=== PATIENT | male | born 1965 | race African-American/Black ===

== ENCOUNTER 2019-12-20 15:07 | Inpatient (IN) | payer MEDICARE, MEDICAID, SELFPAY ==
[2019-12-20] VITALS (28 sets, daily range): BP systolic 131–195; BP diastolic 48–106; PULSE 74–105; RESP 24–98; TEMP 36.2–37; O2SAT 89–100
--- NOTE | ~2019-12-20 | XR_ITS ---
XR chest 1V portable DATE: 12/20/2019 16:22 INDICATION: Cough, shortness of breath TECHNIQUE: Portable upright AP chest on 12/20/2019 at 1618 hours COMPARISON: 05/21/2019 2 view chest FINDINGS: There are prominent partially consolidating infiltrates in both mid and lower lung zones, r ight greater than left. There is pulmonary vascular congestion. There is prominence of the minor fiss ure. Differential diagnosis for the pulmonary rates includes pulmonary edema as well as pneumonia, le ss likely aspiration. Cardiomegaly. IMPRESSION: Prominent bilateral patchy consolidating infiltrates, right greater than left, increased since 05/21/2019, with thickening of the minor fissure. Findings suggest pulmonary edema. Pneumonia is not excluded. Reviewed, dictated and finalized at location A. IMPRESSION: Prominent bilateral patchy consolidating infiltrates, right greater than left, increased since 05/21/2019, with thickening of the minor fissure. Fin dings suggest pulmonary edema. Pneumonia is not excluded.
--- NOTE | 2019-12-20 15:10 | ECG_ITS ---
Measurements Intervals [place] Rate: 76 P: 5 CA: 226 QRS: -51 QRSD: 125 T: 85 QT: 408 QTc: 460 Interpretive Statements SINUS RHYTHM WITH FIRST DEGREE AV BLOCK LEFT AXIS DEVIATION INTRAVENTRICULAR CONDUCTION DELAY VOLTAGE CRITERIA FOR LVH PEAKED T WAVES- CONSIDER HYPERKALEMIA OR ISCHEMIA BORDERLINE T WAVE ABNORMALITY- LATERAL LEADS ABNORMAL ECG Electronically Signed On 12-20-2019 18:59:55 CDT by Wilfrid Mclaughlin D.O.
--- NOTE | 2019-12-20 15:46 | ED.GENADULT ---
HPI - General Adult General Chief complaint: Shortness of Breath/Dyspnea <MARY Lewis Last Filed: 12/20/19 18:39> Stated complaint: missed dialysis - sob <MARY Lewis Last Filed: 12/20/19 18:39> Time Seen by Provider: 12/20/19 15:14 <MARY Lewis Last Filed: 12/20/19 18:39> Source: patient and old records reviewed <MARY Lewis Last Filed: 12/20/19 18:39> Mode of arrival: ambulatory <MARY Lewis Last Filed: 12/20/19 18:39> Limitations: no limitations <MARY Lewis Last Filed: 12/20/19 18:39> History of Present Illness HPI narrative: Patient is a 54-year-old male who presents to emergency department for evaluation of feeling fatigued with slight dyspnea noting that he has missed dialysis twice this week due to oversleeping with history of similar occurrence notes that he has some mild pain to the left shoulder denies any URI symptoms or other complaints. On arrival per private vehicle patient in the room resting comfortably <MARY Lewis Last Filed: 12/20/19 18:39> Related Data Home medications: Home Medications Medication Instructions Recorded Confirmed albuterol sulfate INHALATION 12/20/19 albuterol sulfate [ProAir HFA] INHALATION 12/20/19 amitriptyline 12/20/19 [id number] ala tablet PO 12/20/19 [Biktarvy] diltiazem HCl PO 12/20/19 doravirine [Pifeltro] mg PO 12/20/19 famotidine 12/20/19 gabapentin 12/20/19 lamivudine 12/20/19 metoprolol tartrate 12/20/19 mirtazapine mg 12/20/19 prednisolone acetate 12/20/19 valacyclovir 12/20/19 valsartan 12/20/19 <MARY Lewis Last Filed: 12/20/19 18:39> Allergies/adverse reactions: Allergies Allergy/AdvReac Type Severity Reaction Status Date / Time Fish Containing Products Allergy Unknown Verified 05/21/19 11:01 <Christopher Rodriguez PA-C - Last Filed: 12/20/19 18:39> Review of Systems Review of Systems: All systems reviewed & are unremarkable except as noted in HPI and below <Christopher Rodriguez PA-C - Last Filed: 12/20/19 18:39> REPLACED BY [facility] Past Medical History Medical History: Medical History (Updated 12/20/19 @ 18:39 by Christopher Rodriguez PA-C) Chronic kidney disease Encounter for renal dialysis Hypertension <Christopher Rodriguez PA-C - Last Filed: 12/20/19 18:39> Social History Social History: Social History (Updated 12/20/19 @ 15:48 by Christopher Rodriguez PA-C) Smoking status: Never smoker <Christopher Rodriguez PA-C - Last Filed: 12/20/19 18:39> Exam Narrative: Exam Narrative: GENERAL: Well-appearing, well-nourished, and in no acute distress. HEAD: Normocephalic, atraumatic. EYES: PERRLA and EOMI. ENT: Nares clear, no rhinorrhea or epistaxis. Mucous membranes moist. Oropharynx without tonsillar hypertrophy exudate or other lesions. NECK: Supple. No adenopathy or masses. CHEST: Clear to auscultation. No respiratory distress. No wheezes rales or rhonchi HEART: Regular rate and rhythm. No murmur heard. Normal peripheral pulses. ABDOMEN: Soft, nontender, distended EXTREMITIES: Normal range of motion. No edema. SKIN: Warm, dry, no rash. NEURO: No focal deficits. Alert and oriented x3. Cranial nerves II through XII grossly intact PSYCH: Normal mood and affect. <Christopher Rodriguez PA-C - Last Filed: 12/20/19 18:39> Course Course Emergency Course: Patient in the room at this time aware of case findings treatment plan and diagnosis will be admitted to the hospital will have emergent dialysis patient was given medications for hyperkalemia patient in the room at this time stable but serious condition will be placed in the IMU <Christopher Rodriguez PA-C - Last Filed: 12/20/19 18:39> BOOK STORE ASSOCIATE/PA Physician Supervision For this patient encounter, I reviewed the BOOK STORE ASSOCIATE or PA documentation, treatment plan, and medical decision making; and I had [id number] time with aide
[2019-12-20 15:47] LABS: Basophils Absolute Auto 0.1 K/mm3 (0.0-0.1); Basophils Percent Auto 0.6 % (0.2-1.2); Eosinophils Absolute Auto 0.1 K/mm3 (0-0.3); Eosinophils Percent Auto 1.1 % (0-4.4); Hemoglobin 10.9 g/dL (14.0-18.0); Immature Granulocyte Absolute 0.05 K/mm3 (0.00-0.031); Immature Granulocyte Percent A 0.6 % (0-0.5); Lymphocytes Absolute Auto 0.96 K/mm3 (0.9-3.2); Lymphocytes Percent Auto 11.3 % (18.3-44.2); Mean Corpuscular HGB Conc 31.1 g/dl (32-36); Mean Corpuscular Hemoglobin 34.1 pg (26-34); Mean Corpuscular Volume 109.4 fl (80-100); Mean Platelet Volume 10.8 fl (7.4-10.4); Monocytes Absolute Auto 0.5 K/mm3 (0.1-0.6); Monocytes Percent Auto 6.1 % (2.6-8.5); Neutrophils Absolute Auto 6.8 K/mm3 (1.3-6.7); Neutrophils Percent Auto 80.3 % (45.5-73.1); Nucleated Red Blood Cells Perc 0.2 % (0.0-0.2); Platelet Count Result 114 k/mm3 (150-375); White Blood Count 8.5 K/mm3 (4.5-10.0)
[2019-12-20 15:54] LABS: Alveolar/Arterial O2 Gradient 63.2 mmHg; Base Excess ABG -9.9 mEq/l (+/-2.0); Device NASAL CANNULA; Fractional Inspired Oxygen 24 %; HCO3 ABG 14.8 mEq/l (22.0-26.0); Oxygen Content ABG 15.3 %vol (16.0-22.0); Oxyhemoglobin 89.5 % THb (90.0-100.0); PO2 ABG 73.4 mmHg (80.0-100.0); PO2 FiO2 Ratio Arterial Blood 3.06 %; Site Drawn RIGHT BRACHIAL; Total Hemoglobin 12.1 g/dL (12.0-18.0); pH ABG 7.325 (7.350-7.450)
[2019-12-20 15:58] LABS: INR 1.1
[2019-12-20 15:59] LABS: Partial Thromboplastin Time 34.2 SECONDS (22.3-36.8)
[2019-12-20] MEDS: ALBUTEROL SULFATE NEB 2.5 MG/0.5 ML INH 5 MG INHALATION (16:25)
[2019-12-20] MEDS: IPRATROPIUM BR 0.02% INH SOLN 0.5 MG/2.5 ML VIAL INHALATION (16:26)
[2019-12-20] MEDS: methylPREDNISolone SOD SUCC 125 MG VIAL 80 MG IV PUSH (16:43)
[2019-12-20 17:10] LABS: Alanine Aminotransferase 15 U/L (4-50); Albumin Level 4.3 g/dL (3.5-5.1); Alkaline Phosphatase 61 U/L (38-126); Aspartate Amino Transferase 34 U/L (17-59); Bilirubin,Total 0.7 mg/dL (0.2-1.3); Blood Urea Nitrogen 61 mg/dL (9-20); Carbon Dioxide 18 mmol/L (22-30); Chloride 104 mmol/L (98-107); Glucose 77 mg/dL (75-110); Potassium 8.4 mmol/L (3.4-5.0); Sodium 136 mmol/L (137-145)
[2019-12-20 17:15] LABS: Estimated CRCL calculation 5 ml/min; Estimated Glomerular Filt Rate 3
[2019-12-20 17:19] LABS: NT Pro B Type Natriuretic Pept 4800 PG/ML (5-100); Troponin I < 0.012 ng/mL (0.000-0.034)
[2019-12-20] MEDS: INSULIN HUMAN REGULAR (*BKC) 100 UNITS/ML 10 UNITS IV PUSH (17:34)
[2019-12-20] MEDS: SODIUM POLYSTYRENE SULFONONATE 15 GM/60 ML BTL 30 GM PO (17:35)
[2019-12-20] MEDS: SODIUM BICARBONATE 8.4% 50 MEQ/50 ML VIAL IV PUSH (17:35)
[2019-12-20] MEDS: DEXTROSE 50% 25 GM/50 ML SYRINGE IV PUSH (17:35)
[2019-12-20] MEDS: ALBUTEROL SULFATE NEB 2.5 MG/0.5 ML INH 10 MG INHALATION (17:48)
[2019-12-20 17:50] LABS: Lactate Dehydrogenase 536 U/L (313-618)
[2019-12-20] MEDS: CALCIUM GLUC 1,000 MG/NS 50 ML 1,000 MG/50 ML BAG 100 MG IVPB (17:51)
--- NOTE | 2019-12-20 19:19 | PC.NURSE ---
RN Attempted to draw blood for repeat BMP on , unsuccessful 3 times. Will have someone else redraw.
--- NOTE | 2019-12-20 21:52 | ADMIMU ---
This patient, Mark Rivera, was admitted to IMU status, and placed in Intensive Care Unit-5 at 1945 on 12/20/2019. Patient/family oriented to hospital policies and general routines including ID bracelet, bed and alarms, visiting hours, pain management, procedures, bathroom and other care routines, personal items, smoking policy, room service/diet, and visiting hours. Valuables list has been completed. Information on how to activate the Rapid Response Team has been discussed. Patient/Family are encouraged to report perceived risks to care and to ask questions if they do not understand what they are told or what they should do.
[2019-12-20 21:55] LABS: Hepatitis B Surface Antigen Negative (Negative)
[2019-12-20] MEDS: EPOETIN ALFA 10,000 UNITS/ML VIAL 10000 UNITS IV PUSH (22:23)
--- NOTE | 2019-12-20 22:33 | PC.NURSE ---
2030 dialysis nurse in room with patient.
--- NOTE | 2019-12-20 23:21 | PM.IMHP ---
H&P: HPI History of Present Illness Chief complaint: missed dialysis - sob Narrative: Date and time of patient contact: 12/20/2019 at 11:30 p.m. Mark Rivera is a 54 year old male with a past medical history of HIV, chronic hypoxic respiratory failure, type 2 diabetes mellitus, heart failure and end-stage renal disease who presented to the ER with increased shortness of breath after having missed 2 dialysis appointments this week. Patient reported that he missed his dialysis appointments due to over sleeping. He had called his dialysis center but he was not able to get to the dialysis in her in the time interval that he wanted him there to get dialysis that same day. He simply thought he would get dialysis on Wednesday. But on Wednesday he also over slept again and had generalized weakness. On /the day of presentation the patient reported that he was so weak he had difficulty standing up to ambulate to the bathroom. He was also mildly short of breath and dizzy. He denies any fevers, chills, cough or congestion. He has been staying at home alone and has not had any travel. Feels palpitations quite frequently but he has not had any palpitations recently. I interviewed the patient while he was undergoing emergent hemodialysis. He requested that hemodialysis be stopped at the time of my interview because he was having muscle cramps. The dialysis nurse tells me that the patient had about 3.3 L of fluid off. The patient reports that his shortness of breath has improved. The patient's labs demonstrated marked hyperkalemia with a potassium of 8.4 and his EKG in the ER demonstrated tall peaked T-waves. The patient has had multiple admissions in the past for having missed dialysis and presenting with hyperkalemia. Potassium following dialysis was 4.3. He reports a severe generalized headache and is requesting his home Percocet. He reports that he needs to go home in the morning so that he can take care of his dog. He states that he intends to go to hemodialysis on Wednesday. Review of Systems Review of Systems: Narrative: 12 systems were reviewed with pertinent positives and negatives per HPI. Except as documented in the HPI, all other systems were reviewed and are negative. [facility], [facility] Past Medical History Medical History (Updated 12/21/19 @ 02:52 by Hermelinda Royal DO) Cardiac arrest due to other underlying condition [facility] a [facility] [place] in the past Chronic idiopathic thrombocytopenia Chronic pain Depression with anxiety End-stage renal disease on hemodialysis Dialysis Wednesday in [place]. Patient has been on hemodialysis since 2016. HIV (human immunodeficiency virus infection) Hypertension Hypertensive renal disease with renal failure Insomnia Peripheral neuropathy Restless leg syndrome Small bowel obstruction due to adhesions Treated conservatively in the past Surgical History Surgical History (Updated 12/21/19 @ 02:34 by Hermelinda Royal DO) History of colonoscopy Complicated by colonic rupture requiring surgical repair History of detached retina repair 2007 History of left hip replacement 2010 Surgically constructed arteriovenous fistula Left upper extremity Family History Family History (Updated 12/21/19 @ 02:43 by Hermelinda Royal DO) Father Dementia Mother Dementia CHF (congestive heart failure) Social History Social History (Updated 12/21/19 @ 02:48 by Hermelinda Royal DO) Social History: Code status: Full code Smoking packs per day: 0.25 Smoking cigarettes per day: 5.0 Years smoked: 2 Smoking pack-years: 0.50 Smoking status: Former smoker Additional smoking assessment comments: He only smoked for about 2-4 years when he was in his mid 30s. Alcohol intake: current Alcohol use details: He drinks 1 or 2 alcoholic beverages every couple weeks. Substance use: former Substance use type: marijuana Living arr
[2019-12-20 23:28] LABS: Hepatitis B Surface Anti Res Positive
[2019-12-21] VITALS (11 sets, daily range): BP systolic 122–174; BP diastolic 75–106; PULSE 73–104; RESP 13–26; TEMP 36.2–36.7; O2SAT 97–100; BMI 19.4
[2019-12-21] MEDS: FAMOTIDINE 20 MG/2 ML VIAL IV PUSH (01:11)
[2019-12-21 01:48] LABS: Blood Urea Nitrogen 35 mg/dL (9-20); Calcium 9.2 mg/dL (8.4-10.2); Carbon Dioxide 24 mmol/L (22-30); Chloride 94 mmol/L (98-107); Estimated CRCL calculation 8 ml/min; Estimated Glomerular Filt Rate 6; Glucose 154 mg/dL (75-110); Potassium 4.3 mmol/L (3.4-5.0); Sodium 138 mmol/L (137-145)
[2019-12-21] MEDS: MIRTAZAPINE 15 MG TABLET PO (03:25)
[2019-12-21] MEDS: METOPROLOL TARTRATE 25 MG TABLET PO ×2 (03:25→09:15)
[2019-12-21] MEDS: VITAMIN B CMPLX/VIT C/FOLIC AC 1 CAPSULE 1 CAP PO (09:15)
[2019-12-21] MEDS: GABAPENTIN 100 MG CAPSULE PO ×2 (09:15→12:15)
[2019-12-21] MEDS: VALACYCLOVIR HCL 500 MG TABLET PO (09:16)
[2019-12-21] MEDS: FAMOTIDINE 20 MG TABLET PO (09:16)
[2019-12-21] MEDS: SEVELAMER CARBONATE 800 MG TABLET 1600 MG PO ×2 (09:16→12:15)
--- NOTE | 2019-12-21 11:31 | PM.IMPN ---
Progress Note: A&P Assessment and Plan (1) Volume overload: Qualifiers: Hypervolemia type: other Qualified Code(s): E87.79 - Other fluid overload Code(s): E87.70 - Fluid overload, unspecified Status: Acute Assessment and Plan: Result of missing hemodialysis sessions. Patient much better today after hemodialysis yesterday. COVID-19 testing was started from the emergency room but felt to be less likely as patient with no consistent symptoms. Discussed with nephrology today. Will discharge home as care coordination has verified with his outpatient hemodialysis unit that he will be able to go there tomorrow with COVID-19 testing pending. (2) Acute hyperkalemia: Code(s): E87.5 - Hyperkalemia Status: Acute Assessment and Plan: Result of missing hemodialysis. Corrected with emergent dialysis yesterday. Potassium normal at 4.3 today. Telemetry reviewed on 12/21/2019 with sinus rhythm. (3) End-stage renal disease on hemodialysis: Code(s): N18.6 - End stage renal disease; Z99.2 - Dependence on renal dialysis Status: Acute Assessment and Plan: Nephrology consulted from the emergency room and appreciate input. Emergent hemodialysis yesterday due to volume overload. Plan to continue patient on his Wednesday, Wednesday, Wednesday outpatient hemodialysis schedule. (4) Hypertension: Qualifiers: Hypertension type: essential hypertension Qualified Code(s): I10 - Essential (primary) hypertension Code(s): I10 - Essential (primary) hypertension Status: Acute Assessment and Plan: Blood pressure reviewed on 12/21/2019 and stable although some elevated readings. Will continue his home diltiazem, metoprolol, valsartan and terazosin. Will need to follow as outpatient. (5) DVT prophylaxis: Code(s): Z29.9 - Encounter for prophylactic measures, unspecified Status: Acute Assessment and Plan: Heparin subcutaneously. Time Spent With Patient Time with patient: 15 - 25 minutes Subjective Date/time seen: 12/21/19 11:31 Interval history: Date of Service: 12/21/2019. Admitted with volume overload as result of missing hemodialysis sessions. Had hemodialysis yesterday and feels much better today. No shortness of breath today. No chest pain or pressure. No abdominal pain. No headache or dizziness. Wants to go home. Review of Systems Review of Systems: Narrative: Feels better. Wants to go home. Constitutional: Constitutional: Denies chills and Denies fever(s) ENT: Denies nasal congestion and Denies nasal discharge Cardiovascular: Cardiovascular: Denies chest pain Respiratory: Respiratory: Denies dyspnea Gastrointestinal: Gastrointestinal: Denies abdominal pain, Denies nausea and Denies vomiting Genitourinary: Genitourinary: Reports no additional male genitourinary complaints Musculoskeletal: Musculoskeletal: Reports no additional musculoskeletal complaints Integumentary/Breasts: Skin/Breast: Denies rash Neurologic: Denies headache(s) Psychiatric: Psychiatric: Denies confusion Exam Narrative: Exam Narrative: Awake and alert. Const: General: no acute distress HENMT: Mouth: Yes moist mucous membranes Neck: Neck: supple Lymphatic: lymphadenopathy not noted Resp: Auscultation: clear to auscultation bilaterally, no rales and no wheezes Cardio: Rate: regular rate Rhythm: regular rhythm GI: Inspection: non-distended GI Palp: Yes Soft to palpation and No Tenderness to palpation present (GI) Auscultation: normal bowel sounds Skin: General skin exam: normal color Neuro: Cognition (Neuro): normal cognition Speech: normal speech Extrem: General: no edema Psych: Mental Status: mental status grossly normal Affect: normal affect Objective Data Vital Signs Vital Signs: Vital Signs - 24 hr 12/20/19 15:14 12/20/19 15:23 12/20/19 16:03 Temperature 97.9 F Pulse Rate 74 85 Respiratory Rate 28 H Bl
--- NOTE | 2019-12-21 11:41 | PM.DS ---
DS: Diagnosis Admitting Diagnosis Admitting Diagnosis: Hyperkalemia Discharge Diagnosis (1) Volume overload: Qualifiers: Hypervolemia type: other Qualified Code(s): E87.79 - Other fluid overload Code(s): E87.70 - Fluid overload, unspecified Status: Acute (2) Acute hyperkalemia: Code(s): E87.5 - Hyperkalemia Status: Acute (3) End-stage renal disease on hemodialysis: Code(s): N18.6 - End stage renal disease; Z99.2 - Dependence on renal dialysis Status: Acute (4) Hypertension: Qualifiers: Hypertension type: essential hypertension Qualified Code(s): I10 - Essential (primary) hypertension Code(s): I10 - Essential (primary) hypertension Status: Acute DS: Summary Hospital Course Reason for hospitalization: Shortness of breath. Hospital Course: Date of Service of Discharge: December 21, 2019. History of Present Illness: Patient is a 54-year-old gentleman with known HIV, chronic hypoxic respiratory failure, type 2 diabetes mellitus, heart failure and end-stage renal disease on hemodialysis present emergency room with increased shortness of breath. Patient did miss 2 hemodialysis appointments this past week due to over sleeping. He reports being mildly short of breath and dizzy . No recent fever, chills, cough or congestion. He has been staying home alone without any travel. No recent palpitations. In the emergency room, findings were consistent with fluid overload. Given current pandemic, COVID testing was initiated. He was admitted to IMU for further evaluation and treatment. Course in Hospital: Patient was admitted to the IMU as noted. Nephrology was consulted with patient receiving emergent dialysis on presentation. With hemodialysis patient had complete resolution of symptoms with no further shortness of breath. He had no dizziness or headaches. He experienced no chest pain. No fever while in hospital. Patient was very eager to go home on the morning after present patient. Given the COVID testing still pending, care coordination did contact his usual hemodialysis unit and may made that unit aware of this status. His usual unit did advise he would be able to be accommodated appropriately at his normally scheduled time on Wednesday, December 22, 2019. With the patient stable and all arrangements made for outpatient hemodialysis, he was able to discharge home on December 21, 2019. Status at Discharge Cognitive/behavioral status at discharge: Stable. Functional status at discharge: independent ambulation Overall status at discharge: patient is back to baseline Time Spent with Patient Time attestation: Total time spent providing and/or coordinating discharge services: 35 minutes. Time spent: Greater than 30 minutes Exam Narrative: Exam Narrative: Vital Signs Temp Pulse Resp BP Pulse Ox 97.9 F 74 28 H 135/94 H 92 12/20/19 15:14 12/20/19 15:14 12/20/19 15:14 12/20/19 15:14 12/20/19 15:14 Temp Pulse Resp BP Pulse Ox 98.0 F 83 13 173/102 H 99 12/21/19 12:00 12/21/19 12:00 12/21/19 12:00 12/21/19 12:00 12/21/19 12:00 Awake and alert. Const: General: no acute distress HENMT: Mouth: Yes moist mucous membranes Neck: Neck: supple Lymphatic: lymphadenopathy not noted Resp: Auscultation: clear to auscultation bilaterally, no rales and no wheezes Cardio: Rate: regular rate Rhythm: regular rhythm GI: Inspection: non-distended GI Palp: Yes Soft to palpation and No Tenderness to palpation present (GI) Auscultation: normal bowel sounds Skin: General skin exam: normal color Neuro: General: No confusion Cognition (Neuro): normal cognition Speech: normal speech Extrem:
--- NOTE | 2019-12-21 12:12 | PM.CNNEP ---
Assessment and Plan Assessment and plan (1) End-stage renal disease on hemodialysis: Code(s): N18.6 - End stage renal disease; Z99.2 - Dependence on renal dialysis Status: Acute Assessment and Plan: The patient is on dialysis 3 times a week. He missed the last 2 treatments. Consequently is volume is up and so he short of breath. He also had hyperkalemia. He was emergently dialyzed last night. He is better today. He can probably be discharged. (2) Volume overload: Qualifiers: Hypervolemia type: other Qualified Code(s): E87.79 - Other fluid overload Code(s): E87.70 - Fluid overload, unspecified Status: Acute Assessment and Plan: He had shortness of breath and hypoxia last night. Fluid removal helped this. (3) Acute hyperkalemia: Code(s): E87.5 - Hyperkalemia Status: Acute Assessment and Plan: Potassium was dangerously high last night. It is normal now. (4) Hypertension: Qualifiers: Hypertension type: essential hypertension Qualified Code(s): I10 - Essential (primary) hypertension Code(s): I10 - Essential (primary) hypertension Status: Acute Assessment and Plan: He has hypertension anyway. However when he has this much fluid on his blood pressure is often Dat. It came down to the 120s with fluid removal. Additional Plan Long discussion about the patient being compliant with his dialysis treatments. Having severe volume overload is very hard on his heart. People developed cardiomyopathy when this type of thing happens over and over again even independent of any coronary disease. In addition is potassium was dangerously high. If he was not short of breath than he might have at home had he not come in for dialysis. And now with the sawyer virus we are trying to keep dialysis patients out of the hospital as much as possible to minimize risk of infection. We discussed at length and the patient understands the concerns. History of Present Illness Reason for Consult Consult date: 12/21/19 Chief Complaint Chief complaint: missed dialysis - sob History of Present Illness Narrative: Mark is a very pleasant 54-year-old gentleman who has end-stage renal disease on dialysis 3 times a week. He typically goes Wednesdays and Fridays. Unfortunately on Wednesday and Wednesday he overslept and was unable to make it to his dialysis unit in time. He lives in [place] but he dialyzes in [place] The patient became short of breath yesterday and so came to the emergency room. He was seen and found to be volume overloaded. Unfortunately his potassium was 8.4 so he was admitted and emergently dialyzed. Today he feels better months ago home. Patient denies any chest pain, fever, chills, cough, shortness of Breath, aches or pains. No flu-like symptoms. No back pain. He has anemia and is getting Epogen supplements. He has renal osteodystrophy and is on binders. He is hypertension and is on blood pressure pills. Review of Systems Constitutional: Constitutional: Reports no additional constitutional complaints Eyes: Eyes: Reports no additional eye complaints ENT: Reports system reviewed and no additional complaints, except as documented Cardiovascular: Cardiovascular: Reports no additional cardiovascular complaints Gastrointestinal: Gastrointestinal: Reports no additional gastrointestinal complaints Genitourinary: Genitourinary: Reports no additional male genitourinary complaints Musculoskeletal: Musculoskeletal: Reports no additional musculoskeletal complaints Integumentary/Breasts: Skin/Breast: Reports system reviewed and no additional complaints, except as docu Neurologic: Reports system reviewed and no additional complaints, except as documented Psychiatric: Psychiatric: Reports no additional psychiatric complaints [facility] Past Medical History Medical History (Reviewed 12/21/19 @ 12:17 by William Guerrero
[2019-12-21 12:32] LABS: Glucose Point of Care 197 (65-105)
== END 2019-12-21 13:45 | disposition home or self-care (01) | DRG 640 ==
LOC: ANHED 18:39 → ANHICU 18:56
PROVIDERS: Emergency Medicine Emergency Medical Services; Internal Medicine; Internal Medicine Nephrology; Admitting Provider Hospitalist; Emergency Provider Emergency Medicine; Visit Provider Internal Medicine
DX: E87.5 Hyperkalemia (principal); N18.6 End stage renal disease; J96.11 Chronic respiratory failure with hypoxia; D69.3 Immune thrombocytopenic purpura; I13.2 Hypertensive heart and chronic kidney disease with heart failure and with stage 5 chronic kidney disease, or end stage renal disease; E87.70 Fluid overload, unspecified; Z91.15 Patient's noncompliance with renal dialysis; E11.9 Type 2 diabetes mellitus without complications; Z20.828 Contact with and (suspected) exposure to other viral communicable diseases; G89.29 Other chronic pain; F41.8 Other specified anxiety disorders; Z99.2 Dependence on renal dialysis; E11.22 Type 2 diabetes mellitus with diabetic chronic kidney disease; E11.42 Type 2 diabetes mellitus with diabetic polyneuropathy; G25.81 Restless legs syndrome; G47.00 Insomnia, unspecified; Z96.642 Presence of left artificial hip joint; Z87.891 Personal history of nicotine dependence; I50.9 Heart failure, unspecified; Z21 Asymptomatic human immunodeficiency virus [HIV] infection status
CPT/HCPCS: 36415; 36600; 71045; 80048; 80053; 82805; 83615; 83880; 84484; 85025; 85610; 85730; 86706; 87340; 93005; 94640; 96365; 96375; 99285; A9270; G0257; J0610; J1815; J2930; J7030; Q4081

== ENCOUNTER 2020-02-04 22:05 | Inpatient (IN) | payer MEDICARE, MEDICAID, SELFPAY ==
--- NOTE | ~2020-02-04 | XR_ITS ---
EXAMINATION: XR chest 1V portable EXAM DATE: 02/04/2020 22:49 INDICATION: Shortness of breath. No pain or fever. History hypertension. TECHNIQUE: Portable AP frontal chest x-ray was obtained. Comparison is made to prior examination from 12/20/2019, 05/21/2019. FINDINGS: There is progression in extensive bilateral mid and lower lung zone ill-defined airspace di sease with some air bronchograms. Airspace disease has progressed compared to prior exams. Appearance is most consistent with acute process such as edema or pneumonia, but if this is the same airspace d isease is seen in 2019, could also be chronic process. Please clinically correlate. No pneumothorax or pleural effusion. Cardiomediastinal silhouette is normal. There are no osseous abn ormalities identified. IMPRESSION: 1. Extensive bilateral mid and lower lung zone airspace disease with mild progression. Reviewed, dictated and finalized at location A. IMPRESSION: 1. Extensive bilateral mid and lower lung zone airspace disease with mild prog ression.
[2020-02-04 22:11] VITALS: BP 222/140; PULSE 122; RESP 36; TEMP 36.2; O2SAT 45
[2020-02-04 22:12] VITALS: PULSE 90; RESP 35; O2SAT 100
--- NOTE | 2020-02-04 22:12 | ECG_ITS ---
Measurements Intervals [place] Rate: 122 P: 34 W[place]: 153 QRS: 88 QRSD: 109 T: 38 QT: 305 QTc: 435 Interpretive Statements SINUS TACHYCARDIA VOLTAGE CRITERIA FOR LVH PEAKED T WAVES- CONSIDER HYPERKALEMIA OR ISCHEMIA BASELINE ARTIFACT- I, II, III, AVR, AVL, AVF, V1 ABNORMAL ECG Electronically Signed On 02-05-2020 7:08:20 CDT by Wilfrid Mclaughlin D.O.
--- NOTE | 2020-02-04 22:15 | ED.SOB ---
HPI - SOB/Dyspnea General Chief Complaint: Shortness of Breath/Dyspnea Stated Complaint: missed dialysis, SOB Time Seen by Provider: 02/04/20 22:08 History of Present Illness HPI Narrative: History limited by medical condition 54 yo w/ h/o ESRD on dialysis presents in respiratory distress. He gets dialysis on MWF. Missed Wednesday. SOB worsening throughout the day. No pain. Related Data Home Medications Medication Instructions Recorded Confirmed Biktarvy 1 tablet PO HS 12/20/19 02/05/20 Pifeltro 100 mg PO DAILY 12/20/19 02/05/20 albuterol sulfate 2 puff INHALATION QID PRN 12/20/19 02/05/20 amitriptyline 50 mg PO HS 12/20/19 02/05/20 diltiazem HCl 300 mg PO DAILY 12/20/19 02/05/20 famotidine 20 mg PO DAILY 12/20/19 02/05/20 gabapentin 100 mg PO TID 12/20/19 02/05/20 metoprolol tartrate 25 mg PO BID 12/20/19 02/05/20 mirtazapine 15 mg PO HS 12/20/19 02/05/20 valacyclovir 500 mg PO DAILY 12/20/19 02/05/20 valsartan 80 mg PO HS 12/20/19 02/05/20 Shiro Caps 1 cap PO DAILY 12/21/19 02/05/20 hydrocodone-acetaminophen 1 tablet PO Q6-8H PRN 12/21/19 02/05/20 sevelamer carbonate 1,600 mg PO TID 12/21/19 02/05/20 terazosin 2 mg PO HS 12/21/19 02/05/20 Allergies Allergy/AdvReac Type Severity Reaction Status Date / Time Fish Containing Products Allergy Unknown Verified 05/21/19 11:01 Review of Systems Review of Systems: ROS unobtainable: Yes unobtainable due to medical condition Constitutional: Constitutional: Denies fever(s) Cardiovascular: Cardiovascular: Denies chest pain Respiratory: Respiratory: Reports dyspnea PMFSH Past Medical History Medical History Cardiac arrest due to other underlying condition Resuscitation at a hospital in [place] in the past Chronic idiopathic thrombocytopenia Chronic pain Depression with anxiety End-stage renal disease on hemodialysis Dialysis Wednesday in [place]. Patient has been on hemodialysis since 2016. HIV (human immunodeficiency virus infection) Hypertension Hypertensive renal disease with renal failure Insomnia Peripheral neuropathy Restless leg syndrome Small bowel obstruction due to adhesions Treated conservatively in the past Surgical History Surgical History History of colonoscopy Complicated by colonic rupture requiring surgical repair History of detached retina repair 2007 History of left hip replacement 2009 Surgically constructed arteriovenous fistula Left upper extremity Family History Family History Father Dementia Mother Dementia CHF (congestive heart failure) Social History Social History Social History: Code status: Full code Smoking packs per day: 0.25 Smoking cigarettes per day: 5.0 Years smoked: 2 Smoking pack-years: 0.50 Smoking status: Former smoker Tobacco type: cigarettes Additional smoking assessment comments: He only smoked for about 2-4 years when he was in his mid 30s. Alcohol intake: never Substance use: never Substance use type: does not use Additional living arrangements comments: He lives in [place]. He has a dog. He has never been and does not have any children. His parents are . He would like his friend Brandon Sheffield to be his surrogate decision maker. Additional occupation/education comments: He is on disability. Gender identity (if verbalized by the patient): Male Spiritual care concerns: No Agree to blood products: Yes Exam Const: General: ill appearing acutely and chronically Other: Moderate distress. Resp: Effort & Inspection: labored and tachypneic Auscultation: rales Cardio: Rate: tachycardic Rhythm: regular rhythm Other: JVD GI: GI Palp: Yes Soft to palpation and No Tenderness to
--- NOTE | 2020-02-04 22:20 | PC.NURSE ---
Rep in room at this time to put pt on BIPAP.
[2020-02-04 22:21] LABS: Basophils Absolute Auto 0.1 K/mm3 (0.0-0.1); Basophils Percent Auto 0.4 % (0.2-1.2); Eosinophils Absolute Auto 0.2 K/mm3 (0-0.3); Eosinophils Percent Auto 1.7 % (0-4.4); Hematocrit 36.3 % (42.0-52.0); Hemoglobin 11.8 g/dL (14.0-18.0); Immature Granulocyte Absolute 0.04 K/mm3 (0.00-0.031); Immature Granulocyte Percent A 0.3 % (0-0.5); Lymphocytes Absolute Auto 1.96 K/mm3 (0.9-3.2); Lymphocytes Percent Auto 15.4 % (18.3-44.2); Mean Corpuscular HGB Conc 32.5 g/dl (32-36); Mean Corpuscular Hemoglobin 36.1 pg (26-34); Mean Platelet Volume 10.7 fl (7.4-10.4); Monocytes Absolute Auto 0.9 K/mm3 (0.1-0.6); Monocytes Percent Auto 7.2 % (2.6-8.5); Neutrophils Absolute Auto 9.5 K/mm3 (1.3-6.7); Platelet Count Result 124 k/mm3 (150-375); Red Blood Count 3.27 M/mm3 (4.6-6.20); Red Cell Distribution Width 15.1 % (11.5-14.5); White Blood Count 12.7 K/mm3 (4.5-10.0)
[2020-02-04] MEDS: LABETALOL HCL INJ 100 MG/20 ML VIAL 20 MG IV PUSH (22:23)
[2020-02-04] MEDS: NITROGLYCERIN OINTMENT 1 INCH DOSE TRANSDERM (22:23)
[2020-02-04 22:25] VITALS: BP 185/115; PULSE 98; RESP 36; O2SAT 98
[2020-02-04 22:31] LABS: Prothrombin Time 12.8 Seconds (11.1-14.7)
[2020-02-04 22:32] LABS: Partial Thromboplastin Time 30.4 SECONDS (22.3-36.8)
[2020-02-04 22:34] LABS: Blood Urea Nitrogen 60 mg/dL (9-20); Calcium 8.2 mg/dL (8.4-10.2); Carbon Dioxide 16 mmol/L (22-30); Chloride 105 mmol/L (98-107); Glucose 146 mg/dL (75-110); Potassium 5.5 mmol/L (3.4-5.0); Sodium 137 mmol/L (137-145)
[2020-02-04 22:38] LABS: Alveolar/Arterial O2 Gradient 563.8 mmHg; Base Excess ABG -10.5 mEq/l (+/-2.0); Device NON-INVASIVE VENT; Fractional Inspired Oxygen 100 %; HCO3 ABG 15.3 mEq/l (22.0-26.0); Modified Allen's Test Pass; Non-Invasive Expiratory Pressure 10 CMH2O; Non-Invasive Inspiratory Pressure 18 CMH2O; Non-Invasive Vent Rate 20 /MIN; Oxygen Content ABG 16.4 %vol (16.0-22.0); Oxygen Saturation ABG 97.7 % (95.0-100.0); Oxyhemoglobin 95.5 % THb (90.0-100.0); PCO2 ABG 33.8 mmHg (35.0-45.0); PO2 ABG 115.4 mmHg (80.0-100.0); PO2 FiO2 Ratio Arterial Blood 1.15 %; Site Drawn RIGHT RADIAL; Total Hemoglobin 12.1 g/dL (12.0-18.0); pH ABG 7.274 (7.350-7.450)
[2020-02-04 22:40] VITALS: BP 160/110; PULSE 85; RESP 30; O2SAT 100
[2020-02-04 22:40] LABS: Estimated Glomerular Filt Rate 4
[2020-02-04 22:45] LABS: NT Pro B Type Natriuretic Pept 8920 PG/ML (5-100); Troponin I 0.019 ng/mL (0.000-0.034)
[2020-02-04 23:42] VITALS: BP 165/103; PULSE 89; RESP 28; O2SAT 100
[2020-02-04] MEDS: hydrALAZINE HCL 20 MG/ML VIAL IV PUSH (23:57)
[2020-02-04] MEDS: SODIUM BICARBONATE 8.4% 50 MEQ/50 ML VIAL 100 MEQ IV PUSH (23:57)
[2020-02-05] VITALS (29 sets, daily range): BP systolic 130–176; BP diastolic 73–113; PULSE 82–104; RESP 18–97; TEMP 36.1–37.1; O2SAT 24–100; BMI 19.8
--- NOTE | 2020-02-05 00:45 | PC.NURSE ---
This patient, Mark Rivera, was admitted to IMU Room 214-01. Patient/family oriented to hospital policies and general routines including ID bracelet, bed and alarms, visiting hours, pain management, procedures, bathroom and other care routines, personal items, smoking policy, room service/diet, and visiting hours. Valuables list has been completed. Information on how to activate the Rapid Response Team has been discussed. Patient/Family are encouraged to report perceived risks to care and to ask questions if they do not understand what they are told or what they should do.
[2020-02-05 01:35] LABS: Alveolar/Arterial O2 Gradient 291.8 mmHg; Base Excess ABG -6.8 mEq/l (+/-2.0); Carboxyhemoglobin 0.3 % THb (0-2.0); Fractional Inspired Oxygen 60 %; HCO3 ABG 16.8 mEq/l (22.0-26.0); Methemoglobin ABG 0.3 %THb (0-1.5); Oxygen Content ABG 15.3 %vol (16.0-22.0); Oxygen Saturation ABG 97.9 % (95.0-100.0); Oxyhemoglobin 96.4 % THb (90.0-100.0); PO2 ABG 105.2 mmHg (80.0-100.0); PO2 FiO2 Ratio Arterial Blood 1.75 %; Total Hemoglobin 11.2 g/dL (12.0-18.0); pH ABG 7.397 (7.350-7.450)
[2020-02-05 01:36] LABS: Device NON-INVASIVE VENT; Modified Allen's Test Pass; Non-Invasive Expiratory Pressure 8 CMH2O; Non-Invasive Inspiratory Pressure 16 CMH2O; Non-Invasive Vent Rate 10 /MIN; Site Drawn RIGHT RADIAL
--- NOTE | 2020-02-05 01:53 | PM.IMHP ---
H&P: HPI History of Present Illness Chief complaint: Respiratory failure Narrative: This is a 54 year old male with known ESRD on dialysis M/W/F, HIV, and HTN who presented to the hospital with a complaint of severe shortness of breath. He admits that he missed dialysis this past weekend. He has had increased left upper extremity swelling over the past month and has been treated with antibiotics for left upper extremity cellulitis. He reports that the cellulitis has improved significantly. The patient was evaluted in the ER tonight and found to be fluid overloaded and in acute respiratory failure. He was initiated on Bipap and on my encounter with him he is doing well on the Bipap. He denies any recent fevers, chills, cough, sore throat, chest pain, abdominal pain, dysuria, hematuria, diarrhea, or rectal bleeding. No other complaints. Review of Systems Review of Systems: All systems reviewed & are unremarkable except as noted in HPI and below PMFSH Past Medical History Medical History Cardiac arrest due to other underlying condition Resuscitation at a hospital in [place] in the past Chronic idiopathic thrombocytopenia Chronic pain Depression with anxiety End-stage renal disease on hemodialysis Dialysis Wednesday in [place]. Patient has been on hemodialysis since 2016. HIV (human immunodeficiency virus infection) Hypertension Hypertensive renal disease with renal failure Insomnia Peripheral neuropathy Restless leg syndrome Small bowel obstruction due to adhesions Treated conservatively in the past Surgical History Surgical History History of colonoscopy Complicated by colonic rupture requiring surgical repair History of detached retina repair 2007 History of left hip replacement 2009 Surgically constructed arteriovenous fistula Left upper extremity Family History Family History Father Dementia Mother Dementia CHF (congestive heart failure) Social History Social History Social History: Code status: Full code Smoking packs per day: 0.25 Smoking cigarettes per day: 5.0 Years smoked: 2 Smoking pack-years: 0.50 Smoking status: Former smoker Tobacco type: cigarettes Additional smoking assessment comments: He only smoked for about 2-4 years when he was in his mid 30s. Alcohol intake: never Substance use: never Substance use type: does not use Additional living arrangements comments: He lives in [place]. He has a dog. He has never been and does not have any children. His parents are . He would like his friend Brandon Sheffield to be his surrogate decision maker. Additional occupation/education comments: He is on disability. Gender identity (if verbalized by the patient): Male Spiritual care concerns: No Agree to blood products: Yes Meds Home Medications and Allergies Home Medications Medication Instructions Recorded Confirmed Type Biktarvy 1 tablet PO HS 12/20/19 02/05/20 History Pifeltro 100 mg PO DAILY 12/20/19 02/05/20 History albuterol sulfate 2 puff INHALATION QID PRN 12/20/19 02/05/20 History amitriptyline 50 mg PO HS 12/20/19 02/05/20 History diltiazem HCl 300 mg PO DAILY 12/20/19 02/05/20 History famotidine 20 mg PO DAILY 12/20/19 02/05/20 History gabapentin 100 mg PO TID 12/20/19 02/05/20 History metoprolol tartrate 25 mg PO BID 12/20/19 02/05/20 History mirtazapine 15 mg PO HS 12/20/19 02/05/20 History valacyclovir 500 mg PO DAILY 12/20/19 02/05/20 History valsartan 80 mg PO HS 12/20/19 02/05/20 History [place] Caps 1 cap PO DAILY 12/21/19 02/05/20 History hydrocodone-acetaminophen 1 tablet PO Q6-8H PRN 12/21/19 02/05/20 History sevelamer carbonate 1,600 mg PO TID 12/21/19 05
[2020-02-05] MEDS: hydrALAZINE HCL 20 MG/ML VIAL 10 MG IV PUSH (02:12)
[2020-02-05 04:53] LABS: Basophils Percent Auto 0.2 % (0.2-1.2); Eosinophils Absolute Auto 0.1 K/mm3 (0-0.3); Eosinophils Percent Auto 0.6 % (0-4.4); Hematocrit 30.2 % (42.0-52.0); Hemoglobin 10.1 g/dL (14.0-18.0); Immature Granulocyte Absolute 0.04 K/mm3 (0.00-0.031); Immature Granulocyte Percent A 0.4 % (0-0.5); Lymphocytes Absolute Auto 0.65 K/mm3 (0.9-3.2); Lymphocytes Percent Auto 6.6 % (18.3-44.2); Mean Corpuscular HGB Conc 33.4 g/dl (32-36); Mean Corpuscular Hemoglobin 36.2 pg (26-34); Mean Corpuscular Volume 108.2 fl (80-100); Mean Platelet Volume 9.6 fl (7.4-10.4); Monocytes Absolute Auto 0.7 K/mm3 (0.1-0.6); Monocytes Percent Auto 6.8 % (2.6-8.5); Neutrophils Absolute Auto 8.4 K/mm3 (1.3-6.7); Neutrophils Percent Auto 85.4 % (45.5-73.1); Platelet Count Result 104 k/mm3 (150-375); Red Blood Count 2.79 M/mm3 (4.6-6.20); Red Cell Distribution Width 14.6 % (11.5-14.5); White Blood Count 9.9 K/mm3 (4.5-10.0)
[2020-02-05 05:43] LABS: Blood Urea Nitrogen 64 mg/dL (9-20); Calcium 7.5 mg/dL (8.4-10.2); Carbon Dioxide 19 mmol/L (22-30); Chloride 107 mmol/L (98-107); Glucose 93 mg/dL (75-110); Potassium 6.5 mmol/L (3.4-5.0); Sodium 138 mmol/L (137-145)
[2020-02-05 05:49] LABS: Hepatitis B Surface Antigen Negative (Negative)
[2020-02-05 05:55] LABS: HAV RESULT Negative (Negative); Hepatitis B Core IgM Result Negative (Negative)
[2020-02-05 05:58] LABS: Estimated CRCL calculation 5 ml/min; Estimated Glomerular Filt Rate 4
[2020-02-05 06:37] LABS: Hepatitis B Surface Anti Res Positive; Hepatitis C Virus Antibody Negative (Negative)
[2020-02-05] MEDS: METOPROLOL TARTRATE 50 MG TAB 25 MG PO (08:22)
--- NOTE | 2020-02-05 08:25 | PC.NURSE ---
Patient to dialysis via bed.
--- NOTE | 2020-02-05 12:00 | PM.PNNEP ---
Progress Note: A&P Assessment and Plan (1) End stage renal disease: Code(s): N18.6 - End stage renal disease Status: Chronic (2) Volume overload: Qualifiers: Hypervolemia type: unspecified Qualified Code(s): E87.70 - Fluid overload, unspecified Code(s): E87.70 - Fluid overload, unspecified Status: Acute (3) Hyperkalemia: Code(s): E87.5 - Hyperkalemia Status: Acute (4) Acute respiratory failure: Qualifiers: Respiratory failure complication: unspecified whether with hypoxia or hypercapnia Qualified Code(s): J96.00 - Acute respiratory failure, unspecified whether with hypoxia or hypercapnia Code(s): J96.00 - Acute respiratory failure, unspecified whether with hypoxia or hypercapnia Status: Acute (5) Hypertension: Qualifiers: Hypertension type: essential hypertension Qualified Code(s): I10 - Essential (primary) hypertension Code(s): I10 - Essential (primary) hypertension Status: Chronic (6) HIV (human immunodeficiency virus infection): Code(s): B20 - Human immunodeficiency virus [HIV] disease Status: Chronic (7) Metabolic acidosis: Code(s): E87.2 - Acidosis Status: Chronic Assessment and Plan: . Additional Plan HD today and continue M/W/F schedule while hospitalized consider DUF tomorrow depending on volume status FULL CONSULT TO FOLLOW Subjective Date/time seen: 02/05/20 12:00 Tolerating HD treatment at the time of my visit (seen on HD at ~ 11:50AM); breathing has improved significantly and feels reasonably close to baseline; no apparent distress voiced at this time. Exam Narrative: Exam Narrative: General: WD/WN AA male in NAD Heart: normal S1 and S2; no rub Lungs: decreased breath sounds at bases Abdomen: soft, nontender, nondistended, positive bowel sounds Extremities: no cyanosis or clubbing; no edema Skin: warm and dry Objective Data Vital Signs Vital Signs: Vital Signs Temp Pulse Pulse Resp BP Pulse Ox 02/05/20 11:45 96 153/79 H 02/05/20 11:30 95 141/80 H 02/05/20 11:15 96 155/82 H 02/05/20 11:00 97 168/89 H 02/05/20 10:45 96 154/73 H 02/05/20 10:30 96 136/73 02/05/20 10:16 95 02/05/20 10:15 98 130/88 02/05/20 10:00 97 164/92 H 02/05/20 09:45 89 170/97 H 02/05/20 09:30 87 174/101 H 02/05/20 09:15 87 174/103 H 02/05/20 09:00 82 173/98 H 02/05/20 08:42 95 171/94 H 02/05/20 08:30 36.9 C 100 18 02/05/20 08:22 101 H 02/05/20 08:00 37.1 C 98 97 H 166/90 H 24 L 02/05/20 06:00 100 02/05/20 04:00 98 02/05/20 03:47 36.4 C 101 H 30 H 160/95 H 100 02/05/20 02:00 104 H 02/05/20 01:28 40 H 100 02/05/20 00:44 36.1 C L 100 36 H 176/106 H 98 02/05/20 00:33 95 38 H 97 02/05/20 00:21 94 30 H 170/113 H 100 02/04/20 23:42 89 28 H 165/103 H 100 02/04/20 22:40 85 30 H 160/110 H 100 02/04/20 22:25 98 36 H 185/115 H 98 02/04/20 22:12 90 35 H 100 02/04/20 22:11 36.2 C L 122 H 36 H 222/140 H 45 L Intake/Output Intake/Output: Intake & Output 02/02/20 02/03/20 02/04/20 02/05/20 23:59 23:59 23:59 23:59 Output Total 450 Balance -450 Meds/Results Medications: Active Medications Generic Name Dose Route Start Last Admin Trade Name Freq PRN Reason Stop Dose Admin Hydrocodone Bitart/Acetaminophen 1 tab 02/05/20 06:13 02/05/20 08:20 [place] 10-325 Mg PO 1 tab Q6-8H PRN Administration PAIN RATED 7-10 Albuterol 2 puff 02/05/20 06:13 Proventil Hfa INHALATION QID PRN Shortness Of Breath Or Wheezing Amitriptyline HCl 50 mg 02/05/20 21:00 Elavil PO HS JOSE ANGEL Diltiazem HCl 300 mg 02/05/20 09:00 Cardizem Cd PO DAILY JOSE ANGEL Famotidine 20 mg 02/05/20 09:00 Pepcid PO DAILY JOSE ANGEL Gabapentin 100 mg 02/04
--- NOTE | 2020-02-05 12:47 | PC.NURSE ---
Patient returned to room following dialysis. Report received from MELISSA Castro.
[2020-02-05] MEDS: GABAPENTIN 100 MG CAPSULE PO ×2 (12:56→14:15)
[2020-02-05] MEDS: VALACYCLOVIR HCL 500 MG TABLET PO (12:56)
[2020-02-05] MEDS: SEVELAMER CARBONATE 800 MG TABLET 1600 MG PO (12:56)
[2020-02-05] MEDS: FAMOTIDINE 20 MG TABLET PO (12:56)
[2020-02-05] MEDS: VITAMIN B CMPLX/VIT C/FOLIC AC 1 CAPSULE 1 CAP PO (12:56)
--- NOTE | 2020-02-05 15:37 | PC.NURSE ---
1500 Patient wanting to leave AMA to take care of dog at home. Made him aware that he could if he left. Patient still wants to leave. Dr. Schaefer and Dr. Lopez both made aware of patient leaving AMA.
--- NOTE | 2020-02-05 15:42 | PM.DS ---
DS: Admitting Diagnosis Admitting Diagnosis Admitting Diagnosis: End stage renal disease DS: Discharge Diagnosis Discharge Diagnosis (1) Acute respiratory failure: Qualifiers: Respiratory failure complication: unspecified whether with hypoxia or hypercapnia Qualified Code(s): J96.00 - Acute respiratory failure, unspecified whether with hypoxia or hypercapnia Code(s): J96.00 - Acute respiratory failure, unspecified whether with hypoxia or hypercapnia Status: Acute Assessment and Plan: Admit to IMU, telemetry, Continued Bipap support until dialysis and did well with dialysis removing 2.5 L fluid. Encourage patient to stay another day for probable repeat dialysis session for more fluid removal but left against medical advice aware of the potential consequences (2) Volume overload: Qualifiers: Hypervolemia type: unspecified Qualified Code(s): E87.70 - Fluid overload, unspecified Code(s): E87.70 - Fluid overload, unspecified Status: Acute Assessment and Plan: Patient had 2.5 L removed at dialysis the day he left against medical advice (3) End-stage renal disease on hemodialysis: Code(s): N18.6 - End stage renal disease; Z99.2 - Dependence on renal dialysis Status: Acute Assessment and Plan: Nephrology saw and were managing his fluids.. (4) Acute hyperkalemia: Code(s): E87.5 - Hyperkalemia Status: Acute Assessment and Plan: Potassium predialysis was 6.5 and left post dialysis before could be recheck (5) Hypertension: Qualifiers: Hypertension type: essential hypertension Qualified Code(s): I10 - Essential (primary) hypertension Code(s): I10 - Essential (primary) hypertension Status: Chronic Assessment and Plan: Resume his home regime no new medications given (6) Metabolic acidosis: Code(s): E87.2 - Acidosis Status: Chronic Assessment and Plan: secondary to chronic renal failure. Monitor acid-base status. (7) HIV (human immunodeficiency virus infection): Code(s): B20 - Human immunodeficiency virus [HIV] disease Status: Chronic Assessment and Plan: Continue home meds. (8) Chronic idiopathic thrombocytopenia: Code(s): D69.3 - Immune thrombocytopenic purpura Status: Chronic Assessment and Plan: Unchanged DS: Summary Hospital Course Hospital Course: 54-year-old hypertensive male on chronic hemodialysis admitted with respiratory failure secondary to volume overload after having missed his last dialysis session. Potassium was elevated and had dialysis early a.m. with removal 2.5 L of fluid. He left against medical advise before potassium could reassess the and the plan was to read dialyze 02/05. Patient is aware of potential consequences. Time Spent with Patient Time attestation: Total time spent providing and/or coordinating discharge services: 35 minutes Exam Narrative: Exam Narrative: Condition on discharge patient was examined pre dialysis and left against medical advice post dialysis before further evaluation At discharge blood pressure 157/98 respiration 18 per minute saturating 96% and still on 2 L Prior to dialysis see a crackles in his lungs both bases with no edema DS: Data Data Completed and Pending Labs on day of discharge: Labs from last 24 hours 02/05/20 02/05/20 02/05/20 04:22 04:22 04:22 WBC 9.9 RBC 2.79 L Hgb 10.1 L Hct 30.2 L MCV 108.2 H MCH 36.2 H MCHC 33.4 RDW 14.6 H Plt Count 104 L MPV 9.6 Immature Gran % (Auto) 0.4 Neut % (Auto) 85.4 H Lymph % (Auto) 6.6 L [place] % (Auto) 6.8 Eos % (Auto) 0.6 Baso % (Auto) 0.2 Lymph # (Auto) 0.65 L [place] # (Auto) 0.7 H Eos # (Auto) 0.1 Baso # (Auto) 0.0 Abs Immat Gran (auto) 0.04 H Absolute Neuts (auto) 8.4 H Absolute Nucleated RBC 0.0 Nucleated RBC % 0.0 PT INR APTT Puncture
--- NOTE | 2020-02-09 18:22 | CONS_ITS ---
DATE OF CONSULTATION: 02/05/2020 REASON FOR CONSULTATION: End-stage renal disease. HISTORY OF PRESENT ILLNESS: The patient is a very pleasant 54-year-old male with an extensive past medical history including end-stage renal disease, on hemodialysis 3 times a week; HIV; hypertension; chronic idiopathic thrombocytopenia; depression; anxiety; insomnia; peripheral neuropathy; and restless legs syndrome, who presented to [facility] Emergency Room with complaints of severe shortness of breath. The patient states that he missed his regularly scheduled dialysis treatment last Wednesday and probably had more fluid intake that he should of over the weekend resulting in the aforementioned symptom. He has also had some issues and problems with left upper extremity swelling in the past month, thought to be related to his cellulitis and has been treated with oral antibiotic therapy. This issue apparently has been resolving and what really brought him to the emergency room was the aforementioned shortness of breath. Workup and evaluation in the emergency room demonstrated the patient to be quite hypertensive with clear evidence of fluid overload by his chest x-ray and overt respiratory failure. He was initiated on BiPAP therapy and his respiratory status improved significantly with this intervention. He gave no other reported symptoms with regard to fevers, chills, coughs, sore throat, chest pain, abdominal pain, dysuria, hematuria, diarrhea, or palpitations. Routine blood tests demonstrated labs consistent with his known history of end-stage renal disease, an elevated proBNP, and anemia of his chronic kidney disease. He was subsequently admitted to the hospital for further evaluation and therapy. Renal consultation was requested due to his end-stage renal disease. The patient normally dialyzes on a Wednesday, Wednesday, Wednesday schedule, but as already mentioned, missed his dialysis treatment that was scheduled on Wednesday. This coupled with his increased fluid intake over the weekend resulted in his aforementioned shortness of breath, which he is well aware of. At the time of my dictation, he is undergoing dialysis and clinically appears to be doing significantly better as he is currently off BiPAP and has been weaned down to supplemental oxygen by nasal cannula. No other acute issues or complaints voiced at this time and he is hoping to be discharged later today if possible. ALLERGIES: FISH CONTAINING PRODUCTS. PAST MEDICAL HISTORY: As above. SOCIAL HISTORY: He is a former smoker of about a quarter a pack a day for the last 2 years, but has quit smoking at this time. Denies any history of alcohol or IV drug abuse. FAMILY HISTORY: Significant for dementia in both his mother and father as well as congestive heart failure, but nothing with regard to kidney disease that he is aware of. REVIEW OF SYSTEMS: Significant for as mentioned in the HPI. PHYSICAL EXAMINATION: VITAL SIGNS: Temperature 96.8, pulse 96, respiratory rate 18, blood pressure 153/79, and saturating 100% on room air. GENERAL APPEARANCE: Well developed, well-nourished male, currently receiving dialysis at the time of dictation. HEENT: Normocephalic and atraumatic. Normal conjunctivae and sclerae. Nares patent. NECK: No overt JVD, lymphadenopathy, or thyromegaly. MOUTH: Normal lips, teeth, and gums. CARDIOVASCULAR: Regular rate and rhythm. Normal S1, S2. No rub detected. LUNGS: Clear to auscultation anteriorly with some decreased breath sounds at the bases associated with some bibasilar crackles. ABDOMEN: Soft, nontender. Positive bowel sounds present. EXTREMITIES: No cyanosis, clubbing, or significant edema. NEUROLOGIC: Alert and oriented x3. Cranial nerves 2 through
== END 2020-02-05 15:23 | disposition left against medical advice (07) | DRG 189 ==
LOC: ANHED 22:43 → ANHIMU 02-05 00:59
PROVIDERS: Internal Medicine Nephrology; Admitting Provider Family Medicine; Emergency Provider Emergency Medicine; Visit Provider Internal Medicine
DX: J96.00 Acute respiratory failure, unspecified whether with hypoxia or hypercapnia (principal); N18.6 End stage renal disease; I12.0 Hypertensive chronic kidney disease with stage 5 chronic kidney disease or end stage renal disease; B20 Human immunodeficiency virus [HIV] disease; D69.3 Immune thrombocytopenic purpura; E87.2 Acidosis; E87.5 Hyperkalemia; E87.79 Other fluid overload; Z91.15 Patient's noncompliance with renal dialysis; Z99.2 Dependence on renal dialysis; F41.8 Other specified anxiety disorders; G25.81 Restless legs syndrome; G62.9 Polyneuropathy, unspecified; G89.29 Other chronic pain
CPT/HCPCS: 36415; 36600; 71045; 80048; 80074; 82375; 82805; 83050; 83880; 84484; 85025; 85610; 85730; 86706; 93005; 96374; 96375; 99291; A9270; J0360

== ENCOUNTER 2020-03-05 07:09 | Inpatient (IN) | payer MEDICARE, MEDICAID, SELFPAY ==
[2020-03-05] VITALS (36 sets, daily range): BP systolic 70–171; BP diastolic 40–100; PULSE 40–99; RESP 16–30; TEMP 35–36.6; O2SAT 79–100; BMI 20.2
--- NOTE | 2020-03-05 | ECHO_ITS ---
Patient Info Name: Mrak Rivera Age: 54 years : 1965 Gender: Male Ht: 73 in Wt: 153 lbs BSA: 1.88 m2 HR: 77 bpm BP: 163 / 80 mmHg Heart Rhythm: Sinus Rhythm Technical Quality: Excellent Exam Date: 03/05/2020 4:19 PM Exam Location: [facility] Card Pulmonary Patient Status: Inpatient Admit Date: 03/05/2020 Staff Ordering Physician: Anne Tucker NP [employer] Supervisor: Zoran Johnson RDCS Attending Provider: Benedict Hernandez MD Referring Physician: Garrett ARCE; Exam Type: CA echo doppler color flow Study Info Indications J81.0 - Acute pulmonary edema Complete two-dimensional, color flow and Doppler transthoracic echocardiogram is performed. Strain analysis performed. History/Risk Factors Pulmonary edema; ESRD, HTN, HFpEF. Summary 1. Normal left ventricular size with moderate concentric left ventricular hypertrophy. Left ventricular function was at the lower limit of normal with no focal wall motion abnormalities. Visual ejection fraction was 50-55%, measured 51%. Global longitudinal strain was mildly decreased at-14%, suggestive of early systolic dysfunction. Grade 1 diastolic dysfunction is present. 2. Right ventricular chamber dimension is mildly enlarged. 3. Left atrial chamber dimension is moderately enlarged. 4. There is moderate mitral valve regurgitation. PISA was 0.5 cm. 5. No pulmonary hypertension, estimated pulmonary arterial systolic pressure is 35 mmHg. 6. Normal sinus rhythm. 7. Compared to the echocardiogram obtained in January 2019, there has been some improvement of the left ventricular function and the pulmonary hypertension. Left Ventricle Left ventricular chamber dimension is normal. Left ventricular systolic function is normal, estimated at 50-55%. There is moderately increased left ventricular wall thickness. Left ventricular septal wall motion is normal. The left ventricular diastolic function is grade I diastolic dysfunction. Global longitudinal strain is mildly elevated at 14 %. Right Ventricle Right ventricular chamber dimension is mildly enlarged. Right ventricular systolic function is normal. Left Atria Left atrial chamber dimension is moderately enlarged. Right Atria Right atrial chamber dimension is normal. Aortic Valve The aortic valve is trileaflet. There is no aortic valve sclerosis. There is no aortic valve stenosis. There is no aortic valve regurgitation. Pulmonic Valve The pulmonic valve is normal. There is no pulmonic valve stenosis. There is trace pulmonic regurgitation. Mitral Valve The mitral valve has normal leaflets. There is no mitral valve stenosis. There is moderate mitral valve regurgitation. PISA was 0.5 cm. Tricuspid Valve The tricuspid valve leaflets are normal. There is no significant tricuspid valve stenosis. There is trace tricuspid valve regurgitation. No pulmonary hypertension, estimated pulmonary arterial systolic pressure is 35 mmHg. Pericardium/Pleural The pericardium appears normal. There is no pericardial effusion. Inferior Vena Cava Normal inferior vena cava with >50% collapse upon inspiration consistent with Empty right atrial pressure, 5 mmHg. Aorta The aortic root size at the sinus of Valsalva is normal. The prox ascending aorta size is normal. Left Ventricular Outflow Tract Name Value Normal
--- NOTE | ~2020-03-05 | XR_ITS ---
EXAMINATION: XR chest 1V portable DATE: 03/06/2020 04:56 INDICATION: Respiratory failure TECHNIQUE: frontal view of the chest was obtained. COMPARISON: Chest radiograph dated 03/05/2020 FINDINGS: Significant interval improvement in perihilar predominant opacities consistent with improving pulmona ry edema. No pleural effusion or pneumothorax. Cardiomediastinal silhouette is normal. IMPRESSION: 1. Significant improvement in now mild perihilar opacities and favor resolving ulnar edema over pneum onia. Reviewed, dictated and finalized at location A. IMPRESSION: 1. Significant improvement in now mild perihilar opacities and favor resolving ulnar edema over pneumonia.
--- NOTE | ~2020-03-05 | XR_ITS ---
EXAMINATION: XR chest 1V portable DATE: 03/05/2020 07:48 INDICATION: Atrial fibrillation hypertension and renal failure presenting with shortness of breath. TECHNIQUE: frontal view of the chest was obtained. COMPARISON: Chest radiograph dated 02/04/2020 FINDINGS: Again seen are perihilar predominant airspace and interstitial opacities. No pleural effusion or pneu mothorax. Cardiomegaly. Visualized bones and soft tissues are unremarkable. IMPRESSION: 1. Bilateral extensive but perihilar centered lung disease which could represent moderate pulmonary e bri or pneumonia. 2. Cardiomegaly. Reviewed, dictated and finalized at location A. IMPRESSION: 1. Bilateral extensive but perihilar centered lung disease which could represen t moderate pulmonary edema or pneumonia. 2. Cardiomegaly.
--- NOTE | ~2020-03-05 | US_ITS ---
EXAMINATION: US venous doppler E EXAM DATE: 03/05/2020 15:50 INDICATION: Left arm edema. Left arm fistula. TECHNIQUE: Multiple grayscale, color flow, Doppler sonographic images of the left upper extremity vei ns obtained by technologist. Compression was performed where able. Comparison is made to prior exami nation from 02/07/2019. FINDINGS: Left upper extremity: Jugular vein: ------------> Normal. Subclavian vein: --------> Normal. Axillary vein:------------> Normal. Brachial vein:-----------> Normal. Basilic vein: ------------> Normal. Cephalic vein: ----------> Normal. Radial vein: ------------> Normal. Ulnar vein: > Normal. There is a dialysis graft, with patency confirmed. The velocity in the proximal limb 219 cm/s, and th e distal aspect of the graft 110 cm/s. IMPRESSION: 1. No deep venous thrombosis of the left upper extremity. 2. Patent dialysis graft. Reviewed, dictated and finalized at location B.
--- NOTE | 2020-03-05 07:18 | ECG_ITS ---
Measurements Intervals [place] Rate: 40 P: -76 NE: 148 QRS: -67 QRSD: 134 T: 98 QT: 508 QTc: 415 Interpretive Statements ECTOPIC ATRIAL BRADYCARDIA LEFT BUNDLE BRANCH BLOCK LEFT VENTRICULAR HYPERTROPHY AND ST-T CHANGE PEAKED T WAVES- CONSIDER HYPERKALEMIA OR ISCHEMIA BASELINE WANDER- I, II, AVR, AVL ABNORMAL ECG Electronically Signed On 03-05-2020 9:43:42 CDT by Wilfrid Mclaughlin D.O.
--- NOTE | 2020-03-05 07:24 | PC.NURSE ---
erp dr. cedeño at bedside for assessment. Dr. Cedeño placing iv access in left neck. 2nd attempt successful.
--- NOTE | 2020-03-05 07:29 | ED.SOB ---
HPI - SOB/Dyspnea General Chief Complaint: Shortness of Breath/Dyspnea Stated Complaint: SOB Time Seen by Provider: 03/05/20 07:15 History of Present Illness HPI Narrative: Patient presents via EMS for shortness of breath. He is a dialysis patient and usually has his dialysis on Wednesday. He missed his dialysis yesterday. So his last dialysis was 4 days ago. He denies any pain. But is reluctant to answer other questions. He is breathing fast with groaning. Heart rate is low 40 on the EKG. IV access was obtained without blood draw. Left external jugular obtained with blood. Call out to hand meat salter for emergent dialysis. Needs a potassium to know whether it needs to be corrected. Needs his oxygen saturations to determine whether we need to intubate. MD elicited complaint: shortness of breath Pertinent past history: other (Fluid overload from missed dialysis.) Related Data Home Medications Medication Instructions Recorded Confirmed Biktarvy 1 tablet PO HS 12/20/19 02/05/20 Pifeltro 100 mg PO DAILY 12/20/19 02/05/20 albuterol sulfate 2 puff INHALATION QID PRN 12/20/19 02/05/20 amitriptyline 50 mg PO HS 12/20/19 02/05/20 diltiazem HCl 300 mg PO DAILY 12/20/19 02/05/20 famotidine 20 mg PO DAILY 12/20/19 02/05/20 gabapentin 100 mg PO TID 12/20/19 02/05/20 metoprolol tartrate 25 mg PO BID 12/20/19 02/05/20 mirtazapine 15 mg PO HS 12/20/19 02/05/20 valacyclovir 500 mg PO DAILY 12/20/19 02/05/20 valsartan 80 mg PO HS 12/20/19 02/05/20 [place] Caps 1 cap PO DAILY 12/21/19 02/05/20 hydrocodone-acetaminophen 1 tablet PO Q6-8H PRN 12/21/19 02/05/20 sevelamer carbonate 1,600 mg PO TID 12/21/19 02/05/20 terazosin 2 mg PO HS 12/21/19 02/05/20 Allergies Allergy/AdvReac Type Severity Reaction Status Date / Time Fish Containing Products Allergy Severe Anaphylaxis Verified 03/05/20 09:07 Review of Systems Review of Systems: Narrative: Unable to obtain a review of systems due to the acuteness of the illness and shortness of breath. [facility] Past Medical History Medical History Cardiac arrest due to other underlying condition Resuscitation at a hospital in [place] in the past Chronic idiopathic thrombocytopenia Chronic pain Depression with anxiety End-stage renal disease on hemodialysis Dialysis Wednesday in [place]. Patient has been on hemodialysis since 2016. HIV (human immunodeficiency virus infection) Hypertension Hypertensive renal disease with renal failure Insomnia Peripheral neuropathy Restless leg syndrome Small bowel obstruction due to adhesions Treated conservatively in the past Surgical History Surgical History History of colonoscopy Complicated by colonic rupture requiring surgical repair History of detached retina repair 2007 History of left hip replacement 2009 Surgically constructed arteriovenous fistula Left upper extremity Family History Family History Father Dementia Mother Dementia CHF (congestive heart failure) Social History Social History Social History: Code status: Full code Smoking packs per day: 0.25 Smoking cigarettes per day: 5.0 Years smoked: 2 Smoking pack-years: 0.50 Smoking status: Former smoker Tobacco type: cigarettes Additional smoking assessment comments: He only smoked for about 2-4 years when he was in his mid 30s. Alcohol intake: never Substance use: never Substance use type: does not use Additional living arrangements comments: He lives in [place]. He has a dog. He has never been and does not have any children. His parents are . He would like his friend Brandon Sheffield to be his surrogate decision maker. Additional occupation/education comments: He is on disability.
--- NOTE | 2020-03-05 07:32 | PC.NURSE ---
Unable to get o2 sat.
[2020-03-05 07:37] LABS: Basophils Absolute Auto 0.1 K/mm3 (0.0-0.1); Basophils Percent Auto 0.5 % (0.2-1.2); Eosinophils Absolute Auto 0.1 K/mm3 (0-0.3); Hematocrit 33.4 % (42.0-52.0); Hemoglobin 10.9 g/dL (14.0-18.0); Immature Granulocyte Absolute 0.07 K/mm3 (0.00-0.031); Immature Granulocyte Percent A 0.7 % (0-0.5); Lymphocytes Absolute Auto 1.47 K/mm3 (0.9-3.2); Lymphocytes Percent Auto 13.7 % (18.3-44.2); Mean Corpuscular HGB Conc 32.6 g/dl (32-36); Mean Corpuscular Hemoglobin 35.4 pg (26-34); Mean Corpuscular Volume 108.4 fl (80-100); Mean Platelet Volume 9.4 fl (7.4-10.4); Monocytes Absolute Auto 0.6 K/mm3 (0.1-0.6); Monocytes Percent Auto 5.5 % (2.6-8.5); Neutrophils Absolute Auto 8.5 K/mm3 (1.3-6.7); Neutrophils Percent Auto 78.6 % (45.5-73.1); Platelet Count Result 79 k/mm3 (150-375); Red Blood Count 3.08 M/mm3 (4.6-6.20); Red Cell Distribution Width 14.6 % (11.5-14.5); White Blood Count 10.7 K/mm3 (4.5-10.0)
--- NOTE | 2020-03-05 07:39 | PC.NURSE ---
O2 sat 95% non rebreather. Dr. Baird made aware. X-ray at bedside.
[2020-03-05 07:47] LABS: INR 1.1; Prothrombin Time 13.8 Seconds (11.1-14.7)
[2020-03-05 07:48] LABS: Partial Thromboplastin Time 28.7 SECONDS (22.3-36.8)
--- NOTE | 2020-03-05 07:54 | PC.NURSE ---
ERP Dr. Baird Made aware pt is restless and requesting medications. No new orders at this time.
[2020-03-05 07:57] LABS: Alanine Aminotransferase 17 U/L (4-50); Albumin Level 4.1 g/dL (3.5-5.1); Alkaline Phosphatase 62 U/L (38-126); Aspartate Amino Transferase 37 U/L (17-59); Bilirubin,Total 0.6 mg/dL (0.2-1.3); Blood Urea Nitrogen 63 mg/dL (9-20); Carbon Dioxide 12 mmol/L (22-30); Chloride 107 mmol/L (98-107); Glucose 232 mg/dL (75-110); Magnesium 2.5 mg/dL (1.6-2.3); Potassium 8.3 mmol/L (3.4-5.0); Sodium 135 mmol/L (137-145)
[2020-03-05] MEDS: DEXTROSE 25% INJ 2.5 GM/10 ML SYR IV PUSH (08:01)
[2020-03-05] MEDS: CALCIUM GLUCONATE 1,000 MG/10 ML VIAL 1000 MG IV PUSH (08:01)
[2020-03-05 08:03] LABS: NT Pro B Type Natriuretic Pept 5820 PG/ML (5-100); Troponin I < 0.012 ng/mL (0.000-0.034)
--- NOTE | 2020-03-05 08:03 | PC.NURSE ---
[facility] out of insulin, pharmacy contacted.
[2020-03-05] MEDS: INSULIN HUMAN REGULAR (*BKC) 100 UNITS/ML 7 UNITS IV PUSH (08:05)
[2020-03-05 08:12] LABS: Estimated CRCL calculation 5 ml/min; Estimated Glomerular Filt Rate 4
[2020-03-05] MEDS: SODIUM BICARBONATE 8.4% 100 MEQ in DEXTROSE 5% 1,000 ML 1,000 ML 50 MEQ IV CONT (08:33)
--- NOTE | 2020-03-05 08:38 | PC.NURSE ---
RN spoke with dialysis(Kenan) to give report.
--- NOTE | 2020-03-05 08:39 | PC.NURSE ---
ESTEFANI Brooks at bedside for assessment.
[2020-03-05 08:49] LABS: Lactic Acid 3.5 mmol/L (0.7-2.1)
[2020-03-05 09:01] LABS: Glucose Point of Care 168 (65-105)
--- NOTE | 2020-03-05 09:01 | PC.NURSE ---
BS 168
[2020-03-05 09:09] LABS: Hepatitis B Surface Antigen Negative (Negative)
--- NOTE | 2020-03-05 09:09 | PC.NURSE ---
RN report given to RAUL Najera.
[2020-03-05 09:52] LABS: Alveolar/Arterial O2 Gradient 603.3 mmHg; Base Excess ABG 2.1 mEq/l (+/-2.0); Fractional Inspired Oxygen 100 %; Oxygen Content ABG 14.4 %vol (16.0-22.0); Oxygen Saturation ABG 96.3 % (95.0-100.0); Oxyhemoglobin 93.4 % THb (90.0-100.0); PCO2 ABG 33.3 mmHg (35.0-45.0); PO2 ABG 76.4 mmHg (80.0-100.0); PO2 FiO2 Ratio Arterial Blood 0.76 %; Site Drawn RIGHT FEMORAL; Total Hemoglobin 10.9 g/dL (12.0-18.0); pH ABG 7.494 (7.350-7.450)
[2020-03-05 09:53] LABS: Device NON-REBREATHER MASK
[2020-03-05] MEDS: SODIUM BICARBONATE 8.4% 50 MEQ/50 ML VIAL 100 MEQ IV PUSH (10:13)
[2020-03-05] MEDS: ATROPINE SULFATE 1 MG/ML VIAL IV PUSH (10:14)
--- NOTE | 2020-03-05 10:25 | WPDCNINT ---
Assessment and Plan Assessment and plan (1) Acute hyperkalemia: Code(s): E87.5 - Hyperkalemia Status: Acute Assessment and Plan: Secondary to missed dialysis due to noncompliance with dialysis sessions Patient was given IV insulin dextrose and calcium in the ED I gave 2 amps of bicarb on arrival to ICU Hemodialysis is being started at this time Patient has a left AV fistula which will be used If there is an issue with AV fistula I will place a dialysis catheter Repeat BMP post dialysis (2) End stage renal disease: Code(s): N18.6 - End stage renal disease Status: Chronic Assessment and Plan: See above nephrology consult (3) Metabolic acidosis: Code(s): E87.2 - Acidosis Status: Chronic Assessment and Plan: Improved with IV bicarb (4) CHF (congestive heart failure): Qualifiers: Heart failure chronicity: unspecified Heart failure type: unspecified Qualified Code(s): I50.9 - Heart failure, unspecified Code(s): I50.9 - Heart failure, unspecified Status: Acute Assessment and Plan: Hemodialysis for fluid removal (5) HIV (human immunodeficiency virus infection): Code(s): B20 - Human immunodeficiency virus [HIV] disease Status: Chronic Assessment and Plan: Patient is on anti retroviral l therapy which I will continue (6) DVT prophylaxis: Code(s): Z29.9 - Encounter for prophylactic measures, unspecified Status: Acute Assessment and Plan: SCDs (7) Acute respiratory failure: Qualifiers: Respiratory failure complication: hypoxia Qualified Code(s): J96.01 - Acute respiratory failure with hypoxia Code(s): J96.00 - Acute respiratory failure, unspecified whether with hypoxia or hypercapnia Status: Acute Assessment and Plan: Acute hypoxic respiratory failure secondary to volume overload from from end-stage renal disease and missed dialysis Questionable background pneumonia as history is limited although count is normal Patient on non-rebreather mask maintaining adequate oxygenation and ventilation at this point May need BiPAP or intubation if worsens Blood culture Empiric vancomycin and cefepime (8) Hypotension: Code(s): I95.9 - Hypotension, unspecified Status: Acute Assessment and Plan: Patient's blood pressure was low when he arrived to ICU but improved with 2 amps of bicarb Will monitor closely and if persistent we may need vasopressors for blood pressure support. (9) Encephalopathy: Code(s): G93.40 - Encephalopathy, unspecified Status: Acute Assessment and Plan: Acute likely toxic metabolic encephalopathy Patient is on several drugs which also sedative like Neurontin amitriptyline and hydrocodone Hold all sedative drug ABG reviewed Check ammonia Will send for head CT if mental status does not improve after dialysis. Will hold at this time due to need for emergent dialysis (10) Bradycardia: Code(s): R00.1 - Bradycardia, unspecified Status: Acute Assessment and Plan: Likely from a acidosis hyperkalemia and patient also on Cardizem p.o. Hyperkalemia treated chemically and now patient on dialysis Acidosis treated with sodium bicarbonate 1 mg atropine given on arrival to ICU Heart rate and blood pressure now acceptable Repeat EKG now Total Critical Care Time - 50 minutes Due to a high probability of clinically significant, life threatening deterioration, the patient required my highest level of preparedness to intervene emergently and I personally spent this critical care time directly and personally managing the patient. This critical care time included obtaining a history; examining the patient; pulse oximetry; ordering and review of studies; arranging urgent treatment with development of a management plan; evaluation of patient's response to treatment; frequent reassessment; and discussions with other providers. It w
[2020-03-05] MEDS: EPOETIN ALFA 10,000 UNITS/ML VIAL 5000 UNITS IV PUSH (10:36)
--- NOTE | 2020-03-05 10:43 | ECG_ITS ---
Measurements Intervals [place] Rate: 66 P: 40 CA: 130 QRS: 47 QRSD: 102 T: 89 QT: 454 QTc: 476 Interpretive Statements SINUS RHYTHM POSSIBLE LEFT ATRIAL ENLARGEMENT BORDERLINE R WAVE PROGRESSION, ANTERIOR LEADS BORDERLINE T WAVE ABNORMALITY- HIGH LATERAL LEADS BASELINE ARTIFACT- II, III, AVF BORDERLINE ECG Electronically Signed On 03-05-2020 13:18:14 CDT by Wilfrid Mclaughlin D.O.
[2020-03-05 10:47] LABS: Ammonia < 9 umol/L (9-30)
[2020-03-05] MEDS: ALBUMIN HUMAN 25% 25 GM/100 ML 100 ML IVPB (10:56)
--- NOTE | 2020-03-05 11:04 | PC.NURSE ---
This patient, Mark Rivera, was admitted to Intensive Care Unit-8. Patient/family oriented to hospital policies and general routines including ID bracelet, bed and alarms, visiting hours, pain management, procedures, bathroom and other care routines, personal items, smoking policy, room service/diet, and visiting hours. Valuables list has been completed. Information on how to activate the Rapid Response Team has been discussed. Patient/Family are encouraged to report perceived risks to care and to ask questions if they do not understand what they are told or what they should do.
--- NOTE | 2020-03-05 11:14 | PM.PNNEP ---
Progress Note: A&P Assessment and Plan (1) End stage renal disease: Code(s): N18.6 - End stage renal disease Status: Chronic (2) Hyperkalemia: Code(s): E87.5 - Hyperkalemia Status: Acute (3) Hypotension: Code(s): I95.9 - Hypotension, unspecified Status: Acute (4) Bradycardia: Code(s): R00.1 - Bradycardia, unspecified Status: Acute (5) Volume overload: Qualifiers: Hypervolemia type: other Qualified Code(s): E87.79 - Other fluid overload Code(s): E87.70 - Fluid overload, unspecified Status: Acute (6) Acute respiratory failure: Qualifiers: Respiratory failure complication: hypoxia Qualified Code(s): J96.01 - Acute respiratory failure with hypoxia Code(s): J96.00 - Acute respiratory failure, unspecified whether with hypoxia or hypercapnia Status: Acute Assessment and Plan: . Additional Plan HD today possible HD tomorrow depending on volume status and electrolytes FULL CONSULT TO FOLLOW Subjective Date/time seen: 03/05/20 11:14 Tolerating dialysis at the time of my visit (seen on HD at ~ 11:00AM); BP doing significantly better currently; respiratory status seems to be doing better. Exam Narrative: Exam Narrative: General: WD/WN AA male in NAD Heart: normal S1 and S2; no rub Lungs: coarse with scattered crackles Abdomen: soft, nontender, nondistended, positive bowel sounds Extremities: no cyanosis or clubbing; trace - 1+ edema Skin: warm and dry Objective Data Vital Signs Vital Signs: Vital Signs Temp Pulse Resp BP Pulse Ox 03/05/20 09:52 48 L 29 H 88/62 L 90 03/05/20 09:00 54 L 23 H 86/51 L 87 L 03/05/20 08:35 63 19 88/56 L 90 03/05/20 08:15 69 26 H 79 L 03/05/20 07:58 53 L 30 H 70/40 L 03/05/20 07:43 40 L 22 H 78/53 L 80 L 03/05/20 07:41 40 L 03/05/20 07:39 95 03/05/20 07:10 36.4 C 41 L 28 H 86/67 L Meds/Results Medications: Active Medications Generic Name Dose Route Start Last Admin Trade Name Freq PRN Reason Stop Dose Admin Albuterol 2.5 mg 03/05/20 10:43 Albuterol Sulf Neb 2.5mg/0.5ml INHALATION Q4HRT PRN Shortness Of Breath Or Wheezing Albumin Human 50 mls @ 999 mls/hr 03/05/20 08:15 Albutein IVPB 03/06/20 08:16 Q10M PRN HYPOTENSION Norepinephrine Bitartrate 8 mg in 250 mls @ 9.375 mls/hr 03/05/20 09:40 Levophed 8 Mg/D5w 250 Ml IV CONT .[id number] JOSE ANGEL 5 MCG/MIN Cefepime HCl 1 gm in 50 mls @ 100 mls/hr 03/05/20 09:00 Maxipime 1 Gm/D5w 50 Ml IVPB Q12HR JOSE ANGEL Dopamine HCl/Dextrose 400 mg in 250 mls @ 5.295 mls/hr 03/05/20 10:45 Dopamine 400 Mg/D5w 250 Ml IV CONT .Q24H JOSE ANGEL Protocol 2 MCG/KG/MIN Vancomycin HCl 1,000 mg in 250 mls @ 250 mls/hr 03/05/20 13:00 Vancomycin 1,000 Mg/D5w 250 Ml IVPB 03/05/20 13:59 ONCE ONE Vancomycin HCl 1,000 mg in 250 mls @ 250 mls/hr 03/05/20 10:32 Vancomycin 1,000 Mg/D5w 250 Ml IVPB PRN PRN per protocol Non-Formulary Medication 1 capsule(s) 03/06/20 09:00 Biktarvy BY MOUTH 04/05/20 09:01 DAILY [facility] Radiology Results: ITS Impressions Chest X-Ray 03/05/20 07:53 IMPRESSION: 1. Bilateral extensive but perihilar centered lung disease which could represent moderate pulmonary edema or pneumonia. 2. Cardiomegaly. Labs Labs: Laboratory Tests 03/05/20 07:30 03/05/20 07:30 Quality Patient tolerating hemodialysis at this time ([id number]).
[2020-03-05] MEDS: ALBUMIN HUMAN 25% 12.5 GM/50ML 50 ML IVPB (11:30)
[2020-03-05] MEDS: hydrALAZINE HCL 20 MG/ML VIAL 10 MG IV PUSH (15:12)
--- NOTE | 2020-03-05 15:13 | PM.IMHP ---
H&P: HPI History of Present Illness Chief complaint: hyperkalemia/missed dialysis/hypotension/chf/lynne Narrative: Mark Rivera is a 54 year old male renal disease secondary to uncontrolled hypertension. The patient typically goes to dialysis on Wednesday and Wednesday and he has been known to be noncompliant at times. The patient stated that he did not go to dialysis yesterday because he overslept and that would not be able to get him into later on that day. The patient was then scheduled to go to dialysis today but he became very short of breath. The patient has not had dialysis for 4 days. He does have chronic back pain. The restaurant crew person was consulted for emergent dialysis as patient's potassium was 8.3. Gluconate, regular insulin, dextrose, bicarb, and dopamine was ordered. Patient's blood pressure medicine was initially held due to his low blood pressure. Patient did have emergent dialysis. The patient's mentation improved. When the patient went to the emergency room he was unresponsive and moaning. He is now answering questions without difficulty. He has been receiving antibiotics through his AV fistula for a infection to the fistula in the left upper arm he believes it was vancomycin. He gets it with dialysis. He stated that his left arm was read which is not so much read anymore but is painful to touch and swollen. Chest x-ray today was read as bilateral extensive but perihilar centered lung disease which could represent moderate pulmonary edema or pneumonia. Cardiomegaly. Most likely due to fluid overload from missing dialysis. The patient had been on a non-rebreather at that time but is now on room air. His bradycardic on arrival and he was given an amp of atropine with an improvement his heart rate in the high 40s. The patient was encephalopathic at that time when he 1st arrived in ICU but he is now more awake with the dialysis treatment. Patient is sitting up in drinking fluids at this time. Date of service 03/05/2020 Review of Systems Review of Systems: Narrative: No fever no chills he does complaints of left upper arm pain around the AV fistula with the patient is being treated for cellulitis and infection of the AV fistula of. All systems reviewed & are unremarkable except as noted in HPI and below Constitutional: Constitutional: Reports as per HPI and Reports no additional constitutional complaints Eyes: Eyes: Reports as per HPI and Reports no additional eye complaints ENT: Reports system reviewed and no additional complaints, except as documented and Reports Normal hearing present Cardiovascular: Cardiovascular: Reports no additional cardiovascular complaints Respiratory: Respiratory: Reports no additional respiratory complaints and Reports no additional respiratory complaints Gastrointestinal: Gastrointestinal: Reports as per HPI and Reports no additional gastrointestinal complaints Musculoskeletal: Musculoskeletal: Reports no additional musculoskeletal complaints Integumentary/Breasts: Skin/Breast: Reports system reviewed and no additional complaints, except as docu and Reports as per HPI Neurologic: Reports system reviewed and no additional complaints, except as documented, Reports as per HPI and Reports Normal hearing present Psychiatric: Psychiatric: Reports no additional psychiatric complaints and Reports as per HPI Endocrine: Endocrine: Reports no additional endocrine complaints Hematologic/Lymphatic: Hematologic/Lymphatic: Reports no additional hematologic/lymphatic complaints Allergic/Immunologic: Allergic/Immunologic: Reports no additional allergic/immunologic complaints [facility] Past Medical History Medical History (Updated 03/05/20 @ 15:40 by Anne Tucker NP) AV fistula Cardiac arrest due to other underlying condition Resuscitation at a hospital in [place] in the past Chronic idiopathic thrombocytopenia Chronic pain Depression with anxiety End-stage renal disease on hemodialysis D
[2020-03-05 15:47] LABS: Blood Urea Nitrogen 34 mg/dL (9-20); Carbon Dioxide 25 mmol/L (22-30); Chloride 97 mmol/L (98-107); Estimated CRCL calculation 9 ml/min; Estimated Glomerular Filt Rate 8; Glucose 98 mg/dL (75-110); Potassium 4.7 mmol/L (3.4-5.0); Sodium 139 mmol/L (137-145)
--- NOTE | 2020-03-05 15:52 | PC.NURSE ---
Notified Dr. Garcia of potassium of 4.7 after dialysis. New order to downgrade patient to either IMU or med/tele per Anne Wan's advice. Spoke w/ Anne Wan NP and received new order for downgrade to IMU
[2020-03-05] MEDS: SEVELAMER CARBONATE 800 MG TABLET 1600 MG PO (15:56)
--- NOTE | 2020-03-05 17:16 | PC.NURSE ---
This patient, Mark Rivera, was received from [ ICU 8] on 03/05/20 at 1716. Personal belongings list checked and signed. Patient/family oriented to unit policies and routines
--- NOTE | 2020-03-05 17:18 | PC.NURSE ---
This patient, Mark Rivera, was transferred to [212 ] on 03/05/20 at 1718. Personal belongings sent with patient. Belongings list checked and signed with receiving [ ]. Report given to [MELISSA Crews ]. Appropriate documentation sent with patient. Transferred via wheelchair w/ no issues noted
[2020-03-05] MEDS: VALSARTAN 80 MG TABLET PO (21:37)
[2020-03-05] MEDS: GABAPENTIN 100 MG CAPSULE PO (21:37)
[2020-03-05] MEDS: MIRTAZAPINE 15 MG TABLET PO (21:39)
[2020-03-05] MEDS: TERAZOSIN HCL 1 MG CAPSULE 2 MG PO (21:39)
[2020-03-05] MEDS: TERAZOSIN HCL 5 MG CAPSULE PO (21:39)
[2020-03-05] MEDS: METOPROLOL TARTRATE 25 MG TABLET 75 MG PO (21:39)
[2020-03-05] MEDS: AMITRIPTYLINE HCL 25 MG TABLET 50 MG PO (21:40)
[2020-03-06] VITALS (28 sets, daily range): BP systolic 115–177; BP diastolic 57–101; PULSE 72–98; RESP 16–20; TEMP 36–36.8; O2SAT 91–97
--- NOTE | 2020-03-06 03:22 | PCRCNOTE ---
Spoke to Dee Dee Burnham, Will hold ABG at this time. ICU order not discontinued.
[2020-03-06 05:18] LABS: Hematocrit 32.9 % (42.0-52.0); Hemoglobin 10.6 g/dL (14.0-18.0); Mean Corpuscular HGB Conc 32.2 g/dl (32-36); Mean Corpuscular Hemoglobin 35.8 pg (26-34); Mean Corpuscular Volume 111.1 fl (80-100); Mean Platelet Volume 10.6 fl (7.4-10.4); Platelet Count Result 103 k/mm3 (150-375); Red Blood Count 2.96 M/mm3 (4.6-6.20); Red Cell Distribution Width 14.7 % (11.5-14.5); White Blood Count 6.2 K/mm3 (4.5-10.0)
[2020-03-06 05:38] LABS: Alanine Aminotransferase 20 U/L (4-50); Albumin Level 4.8 g/dL (3.5-5.1); Alkaline Phosphatase 61 U/L (38-126); Aspartate Amino Transferase 36 U/L (17-59); Bilirubin,Total 0.7 mg/dL (0.2-1.3); Blood Urea Nitrogen 39 mg/dL (9-20); Carbon Dioxide 25 mmol/L (22-30); Chloride 94 mmol/L (98-107); Estimated CRCL calculation 7 ml/min; Estimated Glomerular Filt Rate 6; Glucose 128 mg/dL (75-110); Potassium 4.2 mmol/L (3.4-5.0); Sodium 135 mmol/L (137-145)
[2020-03-06] MEDS: GABAPENTIN 100 MG CAPSULE PO ×3 (06:14→22:04)
[2020-03-06] MEDS: VITAMIN B CMPLX/VIT C/FOLIC AC 1 CAPSULE 1 CAP PO (08:10)
[2020-03-06] MEDS: FAMOTIDINE 20 MG TABLET PO (08:10)
[2020-03-06] MEDS: SEVELAMER CARBONATE 800 MG TABLET 1600 MG PO ×3 (08:10→22:00)
[2020-03-06] MEDS: METOPROLOL TARTRATE 25 MG TABLET 75 MG PO ×2 (08:10→22:01)
[2020-03-06] MEDS: VALACYCLOVIR HCL 500 MG TABLET PO (08:12)
--- NOTE | 2020-03-06 11:01 | PM.DS ---
DS: Admitting Diagnosis Admitting Diagnosis Admitting Diagnosis: Hyperkalemia DS: Discharge Diagnosis Discharge Diagnosis (1) Hyperkalemia: Onset Date: Unknown Code(s): E87.5 - Hyperkalemia Status: Acute Assessment and Plan: Patient received emergent dialysis as his potassium was 8.3 on admission. He received the appropriate medications in the ER to treat the hyperkalemia prior to HD. A few hours later, potassium was down to 4.7. Patient was reminded about the benefits of compliance with dialysis. (2) AV fistula infection: Code(s): T82.7XXA - Infection and inflammatory reaction due to other cardiac and vascular devices, implants and grafts, initial encounter Status: Acute Assessment and Plan: Patient has been receiving IV abx with dialysis. We continued them here. Venous Doppler showing no DVT. Continue IV abx with HD after discharge. (3) End stage renal disease: Code(s): N18.6 - End stage renal disease Status: Chronic Assessment and Plan: Patient typically has dialysis on Wednesday at [facility]. The patient has been noncompliant in the past. He missed dialysis Wednesday because he overslept. Patient remains a full code. Nephrology has been consulted and the patient underwent an emergent hemodialysis. The patient had been lethargic prior to the dialysis but is now awake and talking. He did have some encephalopathy prior to the dialysis. That is now resolved. Continue with [facility]. Case management was informed that the patient wishing to have HD closer to home and will look into this to see if this is possible. (4) CHF (congestive heart failure): Qualifiers: Heart failure chronicity: unspecified Heart failure type: unspecified Qualified Code(s): I50.9 - Heart failure, unspecified Code(s): I50.9 - Heart failure, unspecified Status: Acute Assessment and Plan: CR on admission consistent with pulm edema. BNP 5800. Trop negative. Echo here showing EF 50-55% with Grade I diastolic dysfunction and moderate MR. Some improvement in LV function since last year. Related to fluid overload due to missed dialysis. After HD, repeat CXR showing marked improvement. (5) Hypertension: Qualifiers: Hypertension type: essential hypertension Qualified Code(s): I10 - Essential (primary) hypertension Code(s): I10 - Essential (primary) hypertension Status: Chronic Assessment and Plan: For unclear reasons, patient's BP was low on presentation. With improved hemodynamics and fluid balance, his BP has improved and now elevated which is more typical for this patient. Home medications resumed. (6) HIV (human immunodeficiency virus infection): Code(s): B20 - Human immunodeficiency virus [HIV] disease Status: Chronic Assessment and Plan: Patient's medications were non formulary here so he was asked to bring them in from home. He is on biktarvy and pifelto. (7) Chronic idiopathic thrombocytopenia: Code(s): D69.3 - Immune thrombocytopenic purpura Status: Chronic Assessment and Plan: No anticoagulation as his platelets are 79K on admission. Repet showing improvement. He has chronic thrombocytopenia. (8) Depression with anxiety: Code(s): F41.8 - Other specified anxiety disorders Status: Chronic Assessment and Plan: Mood remained stable. We continued with his home meds. DS: Summary Hospital Course Reason for hospitalization: 54yo male on ESRD here for hyperkalemia and fluid overload. Please see H&P for details Hospital Course: As above Time Spent with Patient Time attestation: Total time spent providing and/or coordinating discharge services:32 minutes Time spent: Greater than 30 minutes Exam Narrative: Exam Narrative: AF 138/71 88 Gen - NARD Chest -bibasilar inspiratory crackles. CV - RRR S1/S2. Teleme
--- NOTE | 2020-03-06 12:36 | PM.CNNEP ---
Assessment and Plan Assessment and plan (1) End stage renal disease: Code(s): N18.6 - End stage renal disease Status: Chronic (2) Hyperkalemia: Code(s): E87.5 - Hyperkalemia Status: Acute (3) Volume overload: Qualifiers: Hypervolemia type: other Qualified Code(s): E87.79 - Other fluid overload Code(s): E87.70 - Fluid overload, unspecified Status: Acute (4) Hypotension: Code(s): I95.9 - Hypotension, unspecified Status: Acute Assessment and Plan: . Additional Plan Mark has end-stage renal disease. He was admitted with clear evidence of volume overload as well as severe hyperkalemia in association with hypotension. His blood pressure improved with administration of IV bicarbonate and he was subsequently instituted on urgent hemodialysis yesterday for correction of his electrolyte abnormalities and improvement in his volume status. He tolerated his dialysis treatment yesterday without any problem and had approximately 2.7 L of fluid removal along with improvement in his potassium level. His electrolyte abnormalities and his volume status are secondary to his noncompliance with his dialysis treatment which she apparently missed the day before yesterday. For completeness sake, I will do a short dialysis treatment today to further optimize his fluid status and maintain stability in his electrolytes with the intention of continuing his Wednesday dialysis schedule while he remains hospitalized. I will continue follow patient with you while remains hospitalized and make further recommendations during his hospital course Thank you for allowing me to participate in care this patient. History of Present Illness Reason for Consult Consult date: 03/06/20 Reason for consult: end stage renal disease and hyperkalemia Chief Complaint Chief complaint: hyperkalemia/missed dialysis/hypotension/chf/lynne History of Present Illness Narrative: The patient is a 54 year old male with past medical history as outlined below who presented to [facility] ER yesterday mornining with shortness of breath. The patient apparently missed his regularly scheduled dialysis session yesterday for unclear reasons -- hence his last dialysis was 4 days ago prior to admission on Wednesday (03/02/20). He noted the shortness of breath the evening before but then it seemed to progressive worsen until his presentation to the ER. Work-up and evaluation in the ER demonstrated the patient to be in respiratory distress and hypotensive. Routine blood work noted severe hyperkalemia and his CXR was noteworthy for volume overload. He was given insulin, dextrose, and calcium gluconate for his hyperkalemia and was transferred to ICU for further management and urgent dialysis. On arrival to the ICU, he was drowsy but arousable. He was hypotensive but responded to 2 amps of bicarbonate. He was also bradycardic but this improved with administration of atropine. He was initiated on CNA/dialysis with improvement in his volume status following this intervention. Renal consultation was requested due to his end-stage renal disease. The patient normally dialyzes on a Wednesday, Wednesday, Wednesday schedule, but as already mentioned, missed his dialysis treatment that was scheduled on Wednesday. This coupled with his increased fluid intake over the weekend resulted in his aforementioned shortness of breath, which he is well aware of. He has had multiple hospitalizations for the same issue in the past. No other acute issues or complaints voiced at this time and he is hoping to be discharged later today if possible after dialysis. Review of Systems Review of Systems: Narrative: As per HPI. [facility] Past Medical History Medical History (Updated 03/05/20 @ 15:40 by Anne Tucker NP) AV fistula Cardiac arrest due to other underlying condition Resuscitation at a hospital in [place] in th
[2020-03-06] MEDS: AMITRIPTYLINE HCL 25 MG TABLET 50 MG PO (22:01)
[2020-03-06] MEDS: TERAZOSIN HCL 5 MG CAPSULE PO (22:03)
[2020-03-06] MEDS: TERAZOSIN HCL 1 MG CAPSULE 2 MG PO (22:03)
[2020-03-06] MEDS: VALSARTAN 80 MG TABLET PO (22:04)
[2020-03-06] MEDS: MIRTAZAPINE 15 MG TABLET PO (22:04)
--- NOTE | 2020-03-12 13:56 | PC.NURSE ---
Blood cx are negative. Dr. Hernandez is aware.
--- NOTE | 2020-03-19 06:52 | PC.NURSE ---
Blood cx are negative. Dr. Mary benton.
== END 2020-03-06 22:50 | disposition home or self-care (01) | DRG 640 ==
LOC: ANHED 08:49 → ANHICU 09:00 → ANHIMU 16:55
PROVIDERS: Internal Medicine; Internal Medicine Nephrology; Admitting Provider Internal Medicine; Emergency Provider Emergency Medicine; PCP Internal Medicine; Visit Provider Internal Medicine
DX: E87.79 Other fluid overload (principal); N18.6 End stage renal disease; J96.01 Acute respiratory failure with hypoxia; G93.41 Metabolic encephalopathy; I13.2 Hypertensive heart and chronic kidney disease with heart failure and with stage 5 chronic kidney disease, or end stage renal disease; T82.7XXA Infection and inflammatory reaction due to other cardiac and vascular devices, implants and grafts, initial encounter; D69.3 Immune thrombocytopenic purpura; B20 Human immunodeficiency virus [HIV] disease; E87.5 Hyperkalemia; Z99.2 Dependence on renal dialysis; Z91.15 Patient's noncompliance with renal dialysis; I50.9 Heart failure, unspecified; R00.1 Bradycardia, unspecified; E87.2 Acidosis; I95.9 Hypotension, unspecified; G62.9 Polyneuropathy, unspecified; F41.8 Other specified anxiety disorders; G25.81 Restless legs syndrome; Z96.642 Presence of left artificial hip joint; Z87.891 Personal history of nicotine dependence; Z85.048 Personal history of other malignant neoplasm of rectum, rectosigmoid junction, and anus
CPT/HCPCS: 36415; 36600; 71045; 80048; 80053; 82140; 82805; 83605; 83735; 83880; 84484; 85025; 85027; 85610; 85730; 87040; 87340; 93005; 93306; 93971; 96374; 96375; 96376; 99285; A9270; J0360; J0461; J0610; J0692; J1815; J3370; J7030; J7070; P9047; Q4081

== ENCOUNTER 2020-03-18 12:43 | Emergency (ER) | payer MEDICARE, MEDICAID, SELFPAY ==
--- NOTE | 2020-03-18 12:51 | PC.NURSE ---
prior to registration pt asks staff for dressing to apply to his leaking fistula, stating he just had dialysis. observed holding paper towels in place. provided with dressing as requested. stated he was then going to [facility] [facility] for evaluation and refused to be seen.
== END 2020-03-18 12:51 | disposition left against medical advice (07) ==
PROVIDERS: Emergency Provider Nurse Practitioner Family; PCP Family Medicine
DX: Z53.21 Procedure and treatment not carried out due to patient leaving prior to being seen by health care provider (principal)
CPT/HCPCS: 99199

== ENCOUNTER 2020-03-18 13:12 | Emergency (ER) | payer MEDICARE, MEDICAID, SELFPAY ==
[2020-03-18 13:19] VITALS: BP 174/88; PULSE 94; RESP 18; TEMP 37.3; O2SAT 100
--- NOTE | 2020-03-18 15:19 | ED.UPPEXIN ---
HPI - Extremity Injury (Upper) General Chief Complaint: Extremity Injury, Upper <MARY Lewis Last Filed: 03/18/20 15:22> Stated Complaint: fistula bleeding <MARY Lewis Last Filed: 03/18/20 15:22> Time Seen by Provider: 03/18/20 14:43 <MARY Lewis Last Filed: 03/18/20 15:22> Source: patient <MARY Lewis Last Filed: 03/18/20 15:22> Mode of arrival: ambulatory <MARY Lewis Last Filed: 03/18/20 15:22> Limitations: no limitations <MARY Lewis Last Filed: 03/18/20 15:22> History of Present Illness HPI narrative: Patient is a 54-year-old male who presents to emergency department for evaluation of his dialysis site bleeding patient completed dialysis and then had left and started having bleeding went to a outside facility where he had a pressure dressing applied thought it had bled through the dressing so presents to emergency department at [facility] noting concern for the bleeding patient on arrival to [facility] bleeding has resolved has no other complaints and is resting comfortably in the room in no distress <MARY Lewis Last Filed: 03/18/20 15:22> Related Data Home Medications: Home Medications Medication Instructions Recorded Confirmed Biktarvy 1 tablet PO HS 12/20/19 03/05/20 Pifeltro 100 mg PO DAILY 12/20/19 03/05/20 albuterol sulfate 2 puff INHALATION QID PRN 12/20/19 03/05/20 amitriptyline 50 mg PO HS 12/20/19 03/05/20 diltiazem HCl 300 mg PO HS 12/20/19 03/05/20 famotidine 20 mg PO DAILY 12/20/19 03/05/20 gabapentin 100 mg PO TID 12/20/19 03/05/20 metoprolol tartrate 75 mg PO Q12H 12/20/19 03/05/20 mirtazapine 15 mg PO HS 12/20/19 03/05/20 valacyclovir 500 mg PO DAILY 12/20/19 03/05/20 valsartan 80 mg PO HS 12/20/19 03/05/20 [place] Caps 1 cap PO DAILY 12/21/19 03/05/20 hydrocodone-acetaminophen 1 tablet PO Q6H PRN 12/21/19 03/05/20 sevelamer carbonate 1,600 mg PO TID 12/21/19 03/05/20 terazosin 2 mg PO HS 12/21/19 03/05/20 terazosin 5 mg PO HS 03/05/20 03/05/20 <Christopher Rodriguez PA-C - Last Filed: 03/18/20 15:22> Allergies/Adverse Reactions: Allergies Allergy/AdvReac Type Severity Reaction Status Date / Time Fish Containing Products Allergy Severe Anaphylaxis Verified 03/18/20 15:31 <Christopher Rodriguez PA-C - Last Filed: 03/18/20 15:22> Review of Systems Review of Systems: All systems reviewed & are unremarkable except as noted in HPI and below <Christopher Rodriguez PA-C - Last Filed: 03/18/20 15:22> [facility] Past Medical History Medical History: Medical History AV fistula Cardiac arrest due to other underlying condition Resuscitation at a hospital in [place] in the past Chronic idiopathic thrombocytopenia Chronic pain Depression with anxiety End-stage renal disease on hemodialysis Dialysis Wednesday in [place]. Patient has been on hemodialysis since 2016. History of rectal cancer Surgical extraction. 2018 HIV (human immunodeficiency virus infection) Hypertension Hypertensive renal disease with renal failure Insomnia Peripheral neuropathy Restless leg syndrome Small bowel obstruction due to adhesions Treated conservatively in the past <Christopher Rodriguez PA-C - Last Filed: 03/18/20 15:22> Surgical History Surgical History: Surgical History History of colonoscopy Complicated by colonic rupture requiring surgical repair History of detached retina repair 2007 History of left hip replacement 2010 History of rectal surgery To remove cancer Surgically constructed arteriovenous fistula Left upper extremity <Christopher Rodriguez PA-C - Last Filed: 03/18/20 15:22> Social History Social History: Social History Social History: 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
--- NOTE | 2020-03-18 15:46 | PC.NURSE ---
No active bleeding from fistula site. Dressing to arm remains dry and intact.
== END 2020-03-18 15:55 | disposition home or self-care (01) ==
PROVIDERS: Emergency Provider Emergency Medicine; PCP Family Medicine
DX: T82.838A Hemorrhage due to vascular prosthetic devices, implants and grafts, initial encounter (principal); D69.3 Immune thrombocytopenic purpura; B20 Human immunodeficiency virus [HIV] disease; F41.8 Other specified anxiety disorders; I12.0 Hypertensive chronic kidney disease with stage 5 chronic kidney disease or end stage renal disease; N18.6 End stage renal disease; Z99.2 Dependence on renal dialysis; Z87.891 Personal history of nicotine dependence; Z85.048 Personal history of other malignant neoplasm of rectum, rectosigmoid junction, and anus; G62.9 Polyneuropathy, unspecified; G25.81 Restless legs syndrome; Z96.642 Presence of left artificial hip joint
CPT/HCPCS: 99281

== ENCOUNTER 2020-03-24 15:12 | Inpatient (IN) | payer MEDICARE, MEDICAID, SELFPAY ==
[2020-03-24] VITALS (26 sets, daily range): BP systolic 97–189; BP diastolic 68–104; PULSE 59–76; RESP 17–28; TEMP 35.5–37; O2SAT 95–100
--- NOTE | ~2020-03-24 | XR_ITS ---
XR chest 1V portable 03/24/2020 15:55 Indication: Shortness of breath, weakness. History of hypertension. Procedure: AP portable chest Comparison: Comparison to multiple prior studies sequentially, with oldest reviewed study dated 04/2020. Findings: Cardiomegaly with bilateral airspace disease. Left costophrenic recess is excluded. No righ t pleural effusion or pneumothorax. No acute osseous abnormality. Impression: 1: Cardiomegaly with bilateral airspace disease, most likely edema. Pneumonia less favored. Reviewed, dictated and finalized at location A. Impression: 1: Cardiomegaly with bilateral airspace disease, most likely edema. Pneumonia l ess favored.
--- NOTE | ~2020-03-24 | US_ITS ---
EXAMINATION: US venous doppler UE LT DATE: 03/25/2020 11:03 INDICATION: Left upper limb edema. Recent infection of AV dialysis graft TECHNIQUE: Grayscale images without and with compression and Doppler images of the left upper extremi ty veins were obtained. COMPARISON: 03/05/2020 FINDINGS: The left internal jugular vein, subclavian vein, axillary vein, brachial vein, basilic vein, cephalic vein, radial vein, and ulnar vein are patent. Arteriovenous fistula with patent brachial artery to b asilic vein anastomosis with arterialization of the waveform in the brachial vein. There is aggressiv e decrease in venous pulsatility at the left axillary vein with essentially slow a phasic flow in the left subclavian vein. There are numerous venous collaterals about the shoulder which can also be see n extending to the anterior chest wall on CT dated 02/09/2019. This constellation of findings raises c oncern for a significant stenosis or occlusion at the level of the left brachiocephalic vein. IMPRESSION: 1. Patent bilateral upper extremity veins. No evidence of venous thrombosis. 2. Patent brachial artery to basilic vein arteriovenous fistula. 3. Numerous venous collaterals about the left shoulder and aphasic flow in the left subclavian vein s uggesting more distal high-grade stenosis or occlusion at the level of the left brachiocephalic vein. Could consider contrast-enhanced CT of the chest for further evaluation. Reviewed, dictated and finalized at location A. IMPRESSION: 1. Patent bilateral upper extremity veins. No evidence of venous thrombosis. 2. Patent brachial artery to basilic vein arteriovenous fistula. 3. Numerous venous collaterals about the left shoulder and aphasic flow in the left subclavian vein suggesting more distal high-grade stenosis or occlusion at the level of the left brachiocephalic vein. Could consider contrast-enhanced C T of the chest for further evaluation.
--- NOTE | ~2020-03-24 | CT_ITS ---
EXAMINATION: CT chest w con DATE: 03/26/2020 09:58 INDICATION: Vein occlusion TECHNIQUE: Computed tomography (CT) of the chest was performed with 120 mL Omnipaque-350 intravenous contrast. Additional 3D reconstructions utilizing coronal maximum intensity projection (MIP) were per formed. Automated exposure control and iterative reconstruction technique were employed. The dose-milli gth product was 154.04 mGy-cm. COMPARISON: Chest CT dated 02/09/2019 FINDINGS: Mild emphysema. There is dependent and bandlike opacities in the bilateral lower lobes with proportio nal associated volume loss and favor atelectasis over pneumonia. No pleural effusion. Although not pe rformed as a dedicated pulmonary embolism protocol there is reasonably good contrast opacification of the pulmonary arteries demonstrating no pulmonary embolism through at least the first order segmenta l pulmonary arteries. Cardiomegaly. Atherosclerotic coronary artery calcific a cyst. No pericardial e ffusion. Mildly aneurysmal ascending thoracic aorta which measures up to 4.1 x 4.2 cm. No aortic diss ection. No pathologically enlarged thoracic lymphadenopathy. Bilateral gynecomastia. There is atrophy of the visualized upper poles of the kidneys with known dialysis dependent chronic renal insufficien cy. Mild thoracic spondylosis. There is complete occlusion of the left subclavian vein occurring where it would pass between the ant erior left first rib and clavicle. Chronic posterior dislocation of the medial head of the left clavi ivanna at the clavicular manubrial joint as well as old healed fracture deformity of the medial head of the left clavicle which likely represents the etiology for the subclavian vein occlusion. There are n umerous contrast opacified collateral veins extending from the left upper arm into the left neck and chest live. The left internal jugular vein and left brachiocephalic vein remain patent. There is mil d narrowing at the cephalad-most superior vena cava where it measures 8 mm in maximal diameter at the confluence of the bilateral brachiocephalic veins. IMPRESSION: 1. 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 2. Mild emphysema with atelectasis in the bilateral lower lobes. 3. Cardiomegaly. 4. Mild aneurysmal dilation of ascending thoracic aorta which measures up to 4.2 cm in maximal diamet er. Reviewed, dictated and finalized at location A. IMPRESSION: 1. 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 2. Mild emphysema with atelectasis in the bilateral lower lobes. 3. Cardiomegaly. 4. Mild aneurysmal dilation of ascending thoracic aorta which measures up to 4. 2 cm in maximal diameter.
--- NOTE | ~2020-03-24 | XR_ITS ---
XR chest 1V portable DATE: 03/27/2020 13:51 INDICATION: Shortness of breath, congestive heart failure. Postdialysis TECHNIQUE: 03/27/2020 portable AP chest at 1351 hours COMPARISON: 03/26/2020 CT chest 03/24/2020 portable AP chest FINDINGS: Cardiomegaly. Pulmonary vascular redistribution suggests mild pulmonary venous hypertension . There is mild infiltrate or atelectasis in the lung bases. Small left pleural effusion is suggested. No pneumothorax. Old healed lateral left seventh rib fracture. IMPRESSION: Cardiomegaly, mild pulmonary vascular redistribution, suggesting mild congestive change Mild infiltrate or atelectasis at the lung bases, possible small left pleural effusion. The pulmonary infiltrates are substantially improved since 03/24/2020 Reviewed, dictated and finalized at location A. IMPRESSION: Cardiomegaly, mild pulmonary vascular redistribution, suggesting mi ld congestive change Mild infiltrate or atelectasis at the lung bases, possible small left pleural e ffusion. The pulmonary infiltrates are substantially improved since 03/24/2020
--- NOTE | 2020-03-24 15:31 | ECG_ITS ---
Measurements Intervals [place] Rate: 74 P: -15 GA: 227 QRS: -49 QRSD: 121 T: 75 QT: 423 QTc: 470 Interpretive Statements SINUS RHYTHM WITH MARKED SINUS ARRHYTHMIA WITH FIRST DEGREE AV BLOCK LEFT AXIS DEVIATION INCOMPLETE RIGHT BUNDLE BRANCH BLOCK POSSIBLE LEFT VENTRICULAR HYPERTROPHY PEAKED T WAVES- CONSIDER HYPERKALEMIA OR ISCHEMIA BORDERLINE ST-T WAVE ABNORMALITY- HIGH LATERAL LEADS ABNORMAL ECG Electronically Signed On 03-24-2020 17:19:43 CDT by Wilfrid Mclaughlin D.O.
[2020-03-24 15:43] LABS: Basophils Absolute Auto 0.1 K/mm3 (0.0-0.1); Basophils Percent Auto 0.4 % (0.2-1.2); Eosinophils Absolute Auto 0.1 K/mm3 (0-0.3); Eosinophils Percent Auto 1.1 % (0-4.4); Hematocrit 30.5 % (42.0-52.0); Hemoglobin 10.1 g/dL (14.0-18.0); Immature Granulocyte Absolute 0.07 K/mm3 (0.00-0.031); Immature Granulocyte Percent A 0.6 % (0-0.5); Lymphocytes Percent Auto 5.8 % (18.3-44.2); Mean Corpuscular HGB Conc 33.1 g/dl (32-36); Mean Corpuscular Hemoglobin 36.2 pg (26-34); Mean Corpuscular Volume 109.3 fl (80-100); Mean Platelet Volume 10.9 fl (7.4-10.4); Monocytes Absolute Auto 0.7 K/mm3 (0.1-0.6); Neutrophils Absolute Auto 10.3 K/mm3 (1.3-6.7); Neutrophils Percent Auto 86.1 % (45.5-73.1); Platelet Count Result 128 k/mm3 (150-375); Red Blood Count 2.79 M/mm3 (4.6-6.20); Red Cell Distribution Width 14.4 % (11.5-14.5)
--- NOTE | 2020-03-24 15:57 | ED.GENADULT ---
HPI - General Adult General Chief complaint: Dizziness Stated complaint: weakness Time Seen by Provider: 03/24/20 15:15 History of Present Illness HPI narrative: Patient is a 54 y/o male complaining of moderate SOB starting today. There is no alleviating or aggravating factor. He has a mild cough and he feels dizzy/light-headed. He states that he has ESRD and he receives dialysis MWF. He had dialysis 2 days this past Wednesday. He is concerned that his potassium is high. Related Data Home Medications Medication Instructions Recorded Confirmed Biktarvy 1 tablet PO HS 12/20/19 03/05/20 Pifeltro 100 mg PO DAILY 12/20/19 03/05/20 albuterol sulfate 2 puff INHALATION QID PRN 12/20/19 03/05/20 amitriptyline 50 mg PO HS 12/20/19 03/05/20 diltiazem HCl 300 mg PO HS 12/20/19 03/05/20 famotidine 20 mg PO DAILY 12/20/19 03/05/20 gabapentin 100 mg PO TID 12/20/19 03/05/20 metoprolol tartrate 75 mg PO Q12H 12/20/19 03/05/20 mirtazapine 15 mg PO HS 12/20/19 03/05/20 valacyclovir 500 mg PO DAILY 12/20/19 03/05/20 valsartan 80 mg PO HS 12/20/19 03/05/20 [place] Caps 1 cap PO DAILY 12/21/19 03/05/20 hydrocodone-acetaminophen 1 tablet PO Q6H PRN 12/21/19 03/05/20 sevelamer carbonate 1,600 mg PO TID 12/21/19 03/05/20 terazosin 2 mg PO HS 12/21/19 03/05/20 terazosin 5 mg PO HS 03/05/20 03/05/20 Allergies Allergy/AdvReac Type Severity Reaction Status Date / Time Fish Containing Products Allergy Severe Anaphylaxis Verified 03/18/20 15:31 Review of Systems Constitutional: Constitutional: Denies chills, Denies fever(s), Denies headache(s) and Denies weakness Eyes: Eyes: Denies blurry vision ENT: Denies headache(s) and Denies neck pain Cardiovascular: Cardiovascular: Denies chest pain and Reports dyspnea Respiratory: Respiratory: Reports cough and Reports dyspnea Gastrointestinal: Gastrointestinal: Denies abdominal pain, Denies diarrhea, Denies nausea and Denies vomiting Genitourinary: Genitourinary: Denies hematuria and Denies dysuria Musculoskeletal: Musculoskeletal: Denies back pain and Denies neck pain Neurologic: Reports dizziness, Denies headache(s) and Denies weakness PMF Past Medical History Medical History AV fistula Cardiac arrest due to other underlying condition Resuscitation at a hospital in [place] in the past Chronic idiopathic thrombocytopenia Chronic pain Depression with anxiety End-stage renal disease on hemodialysis Dialysis Wednesday in [place]. Patient has been on hemodialysis since 2016. History of rectal cancer Surgical extraction. 2018 HIV (human immunodeficiency virus infection) Hypertension Hypertensive renal disease with renal failure Insomnia Peripheral neuropathy Restless leg syndrome Small bowel obstruction due to adhesions Treated conservatively in the past Surgical History Surgical History History of colonoscopy Complicated by colonic rupture requiring surgical repair History of detached retina repair 2008 History of left hip replacement 2010 History of rectal surgery To remove cancer Surgically constructed arteriovenous fistula Left upper extremity Family History Family History Father Dementia Mother Dementia CHF (congestive heart failure) Social History Social History Social History: 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 Patient was in at work feel with his dog. He has never or had any children he lives an alternative lifestyle. His parents are . He desires to be a full code. The patient used to smoke for about 2-4 years and quit in his 30s. He is on disability. He occasionally uses marijuana and alcohol. Code status: Full code Smoking packs per day: 0.25 Smoking
[2020-03-24 16:11] LABS: NT Pro B Type Natriuretic Pept 5680 PG/ML (5-100)
[2020-03-24 16:12] LABS: Alanine Aminotransferase 25 U/L (4-50); Albumin Level 4.3 g/dL (3.5-5.1); Alkaline Phosphatase 81 U/L (38-126); Aspartate Amino Transferase 59 U/L (17-59); Bilirubin,Total 1.3 mg/dL (0.2-1.3); Blood Urea Nitrogen 60 mg/dL (9-20); Calcium 7.6 mg/dL (8.4-10.2); Carbon Dioxide 17 mmol/L (22-30); Chloride 97 mmol/L (98-107); Glucose 72 mg/dL (75-110); Potassium 7.3 mmol/L (3.4-5.0); Sodium 133 mmol/L (137-145)
[2020-03-24 16:15] LABS: Troponin I < 0.012 ng/mL (0.000-0.034)
[2020-03-24 16:22] LABS: Estimated CRCL calculation 6 ml/min; Estimated Glomerular Filt Rate 5
[2020-03-24] MEDS: CALCIUM GLUCONATE 1,000 MG/10 ML VIAL 1000 MG IV PUSH (16:33)
[2020-03-24] MEDS: DEXTROSE 50% 25 GM/50 ML SYRINGE IV PUSH (16:44)
[2020-03-24] MEDS: INSULIN HUMAN REGULAR (*BKC) 100 UNITS/ML 10 UNITS IV PUSH (16:45)
[2020-03-24] MEDS: SODIUM BICARBONATE 8.4% 50 MEQ/50 ML VIAL IV PUSH (16:48)
--- NOTE | 2020-03-24 16:53 | PC.NURSE ---
Respiratory at bedside to collect ABG's. Pt swabbed for covid per order Dr. Banks.
[2020-03-24 17:06] LABS: Alveolar/Arterial O2 Gradient 139.9 mmHg; Fractional Inspired Oxygen 32 %; HCO3 ABG 16.4 mEq/l (22.0-26.0); Oxygen Content ABG 11.8 %vol (16.0-22.0); Oxygen Saturation ABG 90.6 % (95.0-100.0); Oxyhemoglobin 83.5 % THb (90.0-100.0); PCO2 ABG 26.6 mmHg (35.0-45.0); PO2 ABG 57.1 mmHg (80.0-100.0); PO2 FiO2 Ratio Arterial Blood 1.78 %; pH ABG 7.409 (7.350-7.450)
[2020-03-24 17:07] LABS: Device NASAL CANNULA; Modified Allen's Test Pass; Site Drawn RIGHT RADIAL
--- NOTE | 2020-03-24 17:29 | PC.NURSE ---
Zoran from dialysis here to dialyze the patient; states has to wait until the patient is admitted. Explained awaiting hospitalist to return call. Pt sleeping soundly, easily arousable. Explained need for dialysis today.
[2020-03-24 17:44] LABS: Glucose Point of Care 133 (65-105)
--- NOTE | 2020-03-24 17:44 | PC.NURSE ---
Pt states is feeling better than when he got here. Requesting food po, and order received per Dr. Banks.
--- NOTE | 2020-03-24 18:38 | PC.NURSE ---
Attempt to call dialysis, no answer.
--- NOTE | 2020-03-24 18:39 | PC.NURSE ---
Report given to Gino in ICU. Lab personnel requests 3 hr be drawn prior to transport. Explained we will draw and then send the patient up.
--- NOTE | 2020-03-24 19:02 | PC.NURSE ---
Call to ICU, explained that the 3 hr has been drawn and ask if they would like us to wait to transport patient due to time of day and shift change. Per Gino, request patient wait till 1914 to transport to floor. States will inform waiting graphic manager that the patient will be up at 1915.
--- NOTE | 2020-03-24 19:15 | ADMGEN ---
This patient, Mark Rivera, was admitted to Intensive Care Unit-5. Patient/family oriented to hospital policies and general routines including ID bracelet, bed and alarms, visiting hours, pain management, procedures, bathroom and other care routines, personal items, smoking policy, room service/diet, and visiting hours. Valuables list has been completed. Information on how to activate the Rapid Response Team has been discussed. Patient/Family are encouraged to report perceived risks to care and to ask questions if they do not understand what they are told or what they should do.
--- NOTE | 2020-03-24 19:30 | PM.IMHP ---
H&P: HPI History of Present Illness Chief complaint: Weakness, shortness breath, dizziness. <Annamarie Alegre PA-C - Last Filed: 03/25/20 00:44> Narrative: Mark Rivera is a 54-year-old male with end-stage renal disease on hemodialysis, congestive heart failure, hypertension, diabetes, anemia, chronic disease, HIV, and several other comorbidities who presented to the emergency department earlier this afternoon with complaints of dizziness, weakness, and shortness of breath. As the day progressed he began feeling weak, dizzy, and progressively short of breath. The symptoms are very similar to when he has had high potassium levels and in need of dialysis, and thus he came in for evaluation. He does dialysis Wednesday, Wednesday, and Wednesday in [place], and has not missed any treatments recently. His dialysis session ended 30 minutes early on Wednesday due to pain is in his left arm at the needle insertion, but he believes he is close to dry weight. He also reports a cough that has been productive of clear sputum, but states that is not unusual for him. He has not had fever, chills, sweats, chest pain, nausea, vomiting, diarrhea, or dysuria (he does still make urine). He denies sick contacts. At the time my evaluation he is getting dialysis and reports feeling somewhat better and much less short of breath. His left arm is markedly edematous and slightly warm, and he reports having infection at his graft site some months ago for which he received antibiotics with each dialysis session. It has been swollen intermittently since that time, and within the last 3 weeks he reportedly had a venous Doppler ultrasound which was unremarkable. <Annamarie Alegre PA-C - Last Filed: 03/25/20 00:44> Review of Systems Review of Systems: Narrative: Twelve systems were reviewed with pertinent positives and negatives as per HPI. No sinus congestion, rhinorrhea, otalgia, or odynophagia. He denies headache and neck ache. No rash. He denies chest pain and pleuritic pain. No anosmia and dysgeusia. He monitors his blood pressures at home and they are typically in the 180 systolic. Except as documented, all other systems were reviewed and are negative. <Annamarie Alegre PA-C - Last Filed: 03/25/20 00:44> PMFSH Past Medical History Medical History: Medical History Anemia of chronic disease Asthma Cardiac arrest With successful resuscitation at [facility]. Chronic idiopathic thrombocytopenia Chronic pain Combined systolic and diastolic congestive heart failure Echocardiogram in January 2019 showed moderate concentric left ventricular hypertrophy, mildly enlarged ventricle cavity, mild to moderate global left ventricular systolic dysfunction, pseudo normal diastolic dysfunction grade 2, and ejection fraction of 40 to 45%. Moderate mitral valve regurgitation, mild aortic valve regurgitation, and severe pulmonary hypertension also noted. Depression with anxiety End-stage renal disease on hemodialysis Dialysis Wednesday, Wednesday, Wednesday in [place]. Patient has been on hemodialysis since 2016. Human immunodeficiency virus On antiretrovirals. Hyperlipidemia Hypertension Insomnia Normal nuclear stress test (~04/2019) Peripheral neuropathy Pulmonary hypertension Echocardiogram in January 2019 showed severe pulmonary hypertension with a peak RVSP of 65 to 70 millimeters of mercury. Rectal cancer (~2017) Status post resection. Restless leg syndrome Small bowel obstruction due to adhesions Resolved with conservative management. Transient ischemic attack (~04/2018) Type 2 diabetes mellitus Diet-controlled for many years. <Annamarie Alegre PA-C - Last Filed: 03/25/20 00:44> Surgical History Surgical History: Surgical History History of colonoscopy Complicated by colonic rupture requiring surgical repair. History of deta
[2020-03-24 19:35] LABS: Troponin I < 0.012 ng/mL (0.000-0.034)
[2020-03-24] MEDS: AMITRIPTYLINE HCL 25 MG TABLET 50 MG PO (23:29)
[2020-03-24] MEDS: VALSARTAN 80 MG TABLET PO (23:30)
[2020-03-24] MEDS: METOPROLOL TARTRATE 25 MG TABLET 75 MG PO (23:30)
[2020-03-24] MEDS: TERAZOSIN HCL 5 MG CAPSULE PO (23:30)
[2020-03-25] VITALS (28 sets, daily range): BP systolic 98–182; BP diastolic 62–98; PULSE 56–103; RESP 16–25; TEMP 36–37.1; O2SAT 92–100
[2020-03-25 00:27] LABS: CRP 5.4 mg/dL (<1.0)
[2020-03-25 00:36] LABS: Troponin I < 0.012 ng/mL (0.000-0.034)
[2020-03-25 05:02] LABS: Basophils Percent Auto 0.5 % (0.2-1.2); Eosinophils Absolute Auto 0.2 K/mm3 (0-0.3); Eosinophils Percent Auto 2.6 % (0-4.4); Hematocrit 26.6 % (42.0-52.0); Hemoglobin 9.1 g/dL (14.0-18.0); Immature Granulocyte Absolute 0.03 K/mm3 (0.00-0.031); Immature Granulocyte Percent A 0.5 % (0-0.5); Lymphocytes Percent Auto 10.6 % (18.3-44.2); Mean Corpuscular HGB Conc 34.2 g/dl (32-36); Mean Corpuscular Hemoglobin 36.4 pg (26-34); Mean Corpuscular Volume 106.4 fl (80-100); Mean Platelet Volume 10.2 fl (7.4-10.4); Monocytes Absolute Auto 0.6 K/mm3 (0.1-0.6); Monocytes Percent Auto 8.7 % (2.6-8.5); Neutrophils Absolute Auto 5.1 K/mm3 (1.3-6.7); Neutrophils Percent Auto 77.1 % (45.5-73.1); Nucleated Red Blood Cells Perc 0.3 % (0.0-0.2); Platelet Count Result 132 k/mm3 (150-375); White Blood Count 6.6 K/mm3 (4.5-10.0)
[2020-03-25 05:17] LABS: Alanine Aminotransferase 40 U/L (4-50); Alkaline Phosphatase 83 U/L (38-126); Aspartate Amino Transferase 72 U/L (17-59); Bilirubin,Total 0.8 mg/dL (0.2-1.3); Blood Urea Nitrogen 36 mg/dL (9-20); CRP 5.1 mg/dL (<1.0); Calcium 7.9 mg/dL (8.4-10.2); Carbon Dioxide 27 mmol/L (22-30); Chloride 98 mmol/L (98-107); Estimated CRCL calculation 9 ml/min; Estimated Glomerular Filt Rate 8; Glucose 122 mg/dL (75-110); Magnesium 2.2 mg/dL (1.6-2.3); Phosphorus 6.2 mg/dL (2.5-4.5); Sodium 136 mmol/L (137-145)
[2020-03-25 05:19] LABS: Estimated CRCL calculation 8 ml/min; Estimated Glomerular Filt Rate 8
[2020-03-25] MEDS: VITAMIN B CMPLX/VIT C/FOLIC AC 1 CAPSULE 1 CAP PO (09:22)
[2020-03-25] MEDS: FLUCONAZOLE 100 MG TABLET PO (09:23)
[2020-03-25] MEDS: FAMOTIDINE 20 MG TABLET PO (09:23)
[2020-03-25] MEDS: SEVELAMER CARBONATE 800 MG TABLET 1600 MG PO ×3 (09:23→18:38)
[2020-03-25] MEDS: HEPARIN SODIUM 5,000 UNITS/ML VIAL 5000 UNITS SUB-Q ×2 (09:23→20:08)
[2020-03-25] MEDS: valACYclovir HCL 500 MG TABLET PO (09:24)
[2020-03-25] MEDS: METOPROLOL TARTRATE 25 MG TABLET 75 MG PO ×2 (09:24→20:08)
[2020-03-25 10:42] LABS: SARS-CoV-2 RNA PCR Negative
--- NOTE | 2020-03-25 10:50 | WPDCNINT ---
Assessment and Plan Assessment and plan (1) Hypoxia: Code(s): R09.02 - Hypoxemia Status: Acute Assessment and Plan: Secondary to pulmonary edema from volume overload from end-stage renal disease White count is 6.6 this morning Chest x-ray and ABG reviewed. In light of acute onset of symptoms and lack of fever and other infectious signs symptoms it appears that volume overload from end-stage renal disease is most likely etiology. Symptoms have improved with hemodialysis Plan for another session today to remove more fluid Although not classical patient was tested for COVID-19 and is pending Does not appear to be pneumonia hence antibiotics were not started (2) Suspected COVID-19 virus infection: Code(s): Z20.828 - Contact with and (suspected) exposure to other viral communicable diseases Status: Acute Assessment and Plan: COVID-19 suspected. SARS-CoV-2 PCR sent and results pending Patient is in Airborne, Droplet and Contact Isolation (3) Volume overload: Qualifiers: Hypervolemia type: unspecified Qualified Code(s): E87.70 - Fluid overload, unspecified Code(s): E87.70 - Fluid overload, unspecified Status: Acute Assessment and Plan: See above (4) Hyperkalemia: Code(s): E87.5 - Hyperkalemia Status: Acute Assessment and Plan: Patient was given insulin dextrose bicarb and calcium in ER. patient refused Kayexalate Patient was dialyzed last night Teresa is normal today (5) End-stage renal disease on hemodialysis: Code(s): N18.6 - End stage renal disease; Z99.2 - Dependence on renal dialysis Status: Acute Assessment and Plan: Nephrology consulted for dialysis. Another session today (6) Hypertension: Qualifiers: Hypertension type: essential hypertension Qualified Code(s): I10 - Essential (primary) hypertension Code(s): I10 - Essential (primary) hypertension Status: Chronic Assessment and Plan: Improved with dialysis Continue antihypertensives and monitor (7) Edema of left upper arm: Code(s): R60.0 - Localized edema Status: Acute Assessment and Plan: Left arm is slightly more swollen and warmer than the right but the patient who was on p.o. 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 diet Code Status - Full Code Will plan to transfer patient out of ICU today once COVID-19 PCR is back Check Totaler Consult Note Consult date: 03/25/20 Time Seen: 11:00 HPI: Mark Rivera is a 54 year old male with past medical history of End-stage renal disease on hemodialysis, congestive heart failure, hypertension, diabetes, anemia, chronic disease, HIV, and several other comorbidities who presented to the emergency department yesterday afternoon with complaints of shortness of breath and weakness. Patient stated that he was at his baseline until Wednesday morning when he woke up short of breath. His last dialysis was on Wednesday and he was fine on Wednesday. He felt short of breath when walking to bathroom and felt weak and hence he came to ER. He did had some cough but had some clear sputum with it. He denied any fever or feeling ill prior to that. No chills body aches change in sensation of smell or taste, no chest pain abdominal pain nausea vomiting diarrhea. No recent travel or sick contacts. He denied any dysuria or hematuria On admission patient was found to be hypoxic and hyperkalemic. Patient was given chemical cocktail to treat hyperkalemia and then admitted to ICU dialyzed overnight. Patient tolerated hemodialysis and potassium this morning was 4. He himself
--- NOTE | 2020-03-25 13:59 | PM.EVENT ---
Event Note Event Note Event Note: Ultrasound of left upper extremity reviewed. Left arm is more swollen than right and is lightly warmer but not red suggestive of any cellulitis. Ultrasound suggests possible occlusion or stenosis of bricks phallic vein. Discussed with radiology. Will order CT chest with contrast to diagnose any potential fixable obstruction. Discussed with patient and updated him with ultrasound results and plan for CT.
--- NOTE | 2020-03-25 15:32 | PM.PNNEP ---
Progress Note: A&P Additional Plan urgent HD yesterday for hyperkalemia and fluid overload HD today for further optimization of fluid status and electrolytes FULL CONSULT TO FOLLOW Subjective Date/time seen: 03/25/20 15:32 Tolerating dialysis at the time of my visit (seen on HD at ~ 3:20PM); breathing/respiratory status doing better at this time; tolerated dialysis yesterday evening as well. Exam Narrative: Exam Narrative: General: WD/WN AA male in NAD Heart: normal S1 and S2; no rub Lungs: decreased at bases Abdomen: soft, nontender, nondistended, positive bowel sounds Extremities: no cyanosis or clubbing; trace edema Skin: warm and dry Objective Data Vital Signs Vital Signs: Vital Signs Temp Pulse Resp BP Pulse Ox 03/25/20 17:30 91 137/72 03/25/20 17:15 102 H 147/82 H 03/25/20 17:00 102 H 145/84 H 03/25/20 16:45 92 154/62 H 03/25/20 16:30 103 H 155/83 H 03/25/20 16:15 94 134/76 03/25/20 16:00 36.5 C 67 17 155/83 H 100 03/25/20 15:55 77 98/68 L 03/25/20 15:45 86 128/68 03/25/20 15:30 97 128/70 03/25/20 15:15 89 133/70 03/25/20 15:00 88 134/67 03/25/20 14:46 94 100/87 03/25/20 14:00 69 22 H 100/87 93 03/25/20 12:00 36.6 C 69 19 130/90 97 03/25/20 10:00 79 22 H 138/77 99 03/25/20 08:00 36.5 C 67 23 H 151/98 H 98 03/25/20 05:58 67 25 H 130/77 96 03/25/20 04:00 36.2 C L 57 L 18 118/68 96 03/25/20 03:51 57 L 17 96 03/25/20 02:00 64 20 127/88 92 03/25/20 00:00 36.3 C L 74 23 H 182/98 H 97 03/24/20 23:30 73 03/24/20 23:15 35.5 C L 69 21 H 121/104 H 03/24/20 22:50 66 130/80 03/24/20 22:45 65 133/78 03/24/20 22:30 68 171/86 H 03/24/20 22:15 65 171/82 H 03/24/20 22:00 63 21 H 182/81 H 100 03/24/20 21:45 63 185/83 H 03/24/20 21:30 67 189/81 H 03/24/20 21:15 72 185/86 H 03/24/20 21:00 67 183/85 H 03/24/20 20:45 64 180/90 H 03/24/20 20:30 65 178/81 H 03/24/20 20:15 65 169/83 H 03/24/20 20:00 36.2 C L 68 20 159/88 H 96 03/24/20 19:50 70 152/85 H 03/24/20 19:30 35.6 C L 75 24 H 157/96 H 97 03/24/20 19:26 76 24 H 159/98 H Intake/Output Intake/Output: Intake & Output 03/22/20 03/23/20 03/24/20 03/25/20 23:59 23:59 23:59 23:59 Intake Total 1570 Output Total 1999 600 Balance -1999 970 Meds/Results Medications: Active Medications Generic Name Dose Route Start Last Admin Trade Name Freq PRN Reason Stop Dose Admin Hydrocodone Bitart/Acetaminophen 1 tab 03/24/20 22:33 03/25/20 14:50 [place] 10-325 Mg PO 1 tab Q6H PRN Administration Pain Rated 7-10 Amitriptyline HCl 50 mg 03/24/20 22:45 03/24/20 23:29 Elavil PO 50 mg HS JOSE ANGEL Administration Diltiazem HCl 300 mg 03/24/20 22:45 03/24/20 23:30 Cardizem Cd PO 300 mg HS JOSE ANGLE Administration Epoetin Wes-epbx 10,000 units 03/25/20 19:04 Retacrit IV PUSH 03/25/20 19:05 ONCE ONE Famotidine 20 mg 03/25/20 09:00 03/25/20 09:23 Pepcid PO 20 mg DAILY JOSE ANGEL Administration Fluconazole 100 mg 03/25/20 09:00 03/25/20 09:23 Diflucan Tablet PO 100 mg DAILY JOSE ANGEL Administration Heparin Sodium (Porcine) 5,000 units 03/25/20 09:00 03/25/20 09:23 Heparin Sodium SUB-Q 5,000 units Q12HR JOSE ANGEL Administration Albumin Human 50 mls @ 999 mls/hr 03/24/20 17:05 Albutein IVPB 04/23/20 17:06 Q10M PRN HYPOTENSION Vancomycin HCl 1,000 mg in 250 mls @ 250 mls/hr 03/25/20 02:23 Vancomycin 1,000 Mg/D5w 250 Ml IVPB PRN PRN Drug Levels Metoprolol Tartrate 75 mg 03/24/20 22:45 03/25/20 09:24 Lopressor PO 75 mg Q12HR JOSE ANGEL Administration Non-Formulary Medication 1 tablet 03/25/20 21:00 Dbckgfucg-Giwlyvls-Nwwpfuk Ala [Biktarvy] PO 04/24/20 21:01 HS JOSE ANGEL Non-Formulary Medication 100 mg 03/25/20 09:00 Doravirine
--- NOTE | 2020-03-25 15:51 | PM.IMPN ---
Progress Note: A&P Assessment and Plan (1) Volume overload: Qualifiers: Hypervolemia type: unspecified Qualified Code(s): E87.70 - Fluid overload, unspecified Code(s): E87.70 - Fluid overload, unspecified Status: Acute Assessment and Plan: Patient states he has been compliant with dialysis except that his dialysis was stopped early on Wednesday due to pain in his left arm. He presents with complaints of dizziness found to have severe hyperkalemia and fluid overload. Symptoms improved with urgent dialysis. Continue aggressive HD. (2) Hyperkalemia: Code(s): E87.5 - Hyperkalemia Status: Acute Assessment and Plan: Potassium 7.3 on admission. Patient states he has not missed any treatments recently but felt his fluid overload and hyperkalemia are related to noncompliance. He required urgent dialysis on the night of admission. Potassium better. Continue to follow. (3) Edema of left upper arm: Code(s): R60.0 - Localized edema Status: Acute Assessment and Plan: Edema has improved with the dialysis. Does not appear to be infected. White count was elevated 12,000 but on repeat is normal now. Follow up on blood cultures. Continue IV antibiotics for now. Venous Doppler showing no evidence of venous thrombosis. There may be a distal high-grade stenosis at the left brachiocephalic vein. CT with contrast was recommended which was ordered for tomorrow. He will need dialysis after the contrast. (4) End-stage renal disease on hemodialysis: Code(s): N18.6 - End stage renal disease; Z99.2 - Dependence on renal dialysis Status: Acute Assessment and Plan: As above. Continue aggressive dialysis to improve fluid status. Appreciate Nephrology input. Discussed with Nephrology. (5) Hypertension: Qualifiers: Hypertension type: essential hypertension Qualified Code(s): I10 - Essential (primary) hypertension Code(s): I10 - Essential (primary) hypertension Status: Chronic Assessment and Plan: Blood pressure reviewed on 03/25/2020. Blood pressure labile. Currently well controlled however. Currently on Diovan, metoprolol and diltiazem. Heart rate well controlled. Will continue to monitor for now. Blood pressure may smooth out once fluid status is improved. (6) Anemia of chronic disease: Code(s): D63.8 - Anemia in other chronic diseases classified elsewhere Status: Acute Assessment and Plan: Hemoglobin low in the 9-10 range but stable. Most likely related to his renal failure. Continue to monitor. Subjective Date/time seen: 03/25/20 15:51 Interval history: 54yo male with ESRD here for SOB and found to have fluid overload. Feels better today. Shortness of breath improved. He wears oxygen as needed at home at 2 L. he only uses oxygen once a week on average when feeling short of breath. He completed the antibiotics for the left arm shunt infection few weeks ago. He feels there is something wrong with the left arm shunt. Patient did receive dialysis yesterday and is currently receiving dialysis now. Nurse in the room states shunt is functioning normally. Exam Narrative: Exam Narrative: AF 77 Gen: NARD currently receiving HD Chest: bibasilar R>L inspirtatory crackles, nml RR. No conversational dyspnea CV: RRR S1-S2. Telemetry showing no significant dysrhythmias Abd: Soft. Nontender. Positive bowel sounds. Ext: No pedal edema. There is a left upper extremity fistula with positive thrill and bruit and currently accessed. Left upper extremity that is significantly edematous. No erythema.
[2020-03-25 18:48] LABS: Vancomycin Random 9.1 ug/mL (10-20)
[2020-03-25] MEDS: VALSARTAN 80 MG TABLET PO (20:08)
[2020-03-25] MEDS: AMITRIPTYLINE HCL 25 MG TABLET 50 MG PO (20:08)
[2020-03-25] MEDS: TERAZOSIN HCL 5 MG CAPSULE PO (20:08)
--- NOTE | 2020-03-25 21:08 | PC.NURSE ---
This patient, Mark Rivera, was received from [ICU 5 ] on 03/25/20 at 2108. Personal belongings list checked and signed. Patient/family oriented to unit policies and routines
[2020-03-26 05:59] LABS: Hematocrit 26.3 % (42.0-52.0); Hemoglobin 8.8 g/dL (14.0-18.0); Mean Corpuscular HGB Conc 33.5 g/dl (32-36); Mean Corpuscular Hemoglobin 35.9 pg (26-34); Mean Corpuscular Volume 107.3 fl (80-100); Mean Platelet Volume 9.7 fl (7.4-10.4); Platelet Count Result 121 k/mm3 (150-375); Red Blood Count 2.45 M/mm3 (4.6-6.20); Red Cell Distribution Width 13.9 % (11.5-14.5); White Blood Count 5.4 K/mm3 (4.5-10.0)
[2020-03-26 06:16] LABS: Albumin Level 4.2 g/dL (3.5-5.1); Blood Urea Nitrogen 20 mg/dL (9-20); Carbon Dioxide 28 mmol/L (22-30); Chloride 94 mmol/L (98-107); Estimated CRCL calculation 10 ml/min; Estimated Glomerular Filt Rate 9; Glucose 134 mg/dL (75-110); Magnesium 1.9 mg/dL (1.6-2.3); Phosphorus 3.8 mg/dL (2.5-4.5); Potassium 3.7 mmol/L (3.4-5.0); Sodium 134 mmol/L (137-145)
[2020-03-26 08:45] VITALS: BP 167/74; PULSE 76; RESP 16; TEMP 37.2; O2SAT 92
--- NOTE | 2020-03-26 10:10 | PC.NURSE ---
Pt returned from CT, pt did not have any medications in drawer. Pharmacy called, medications sent up.
[2020-03-26 10:17] VITALS: PULSE 71
[2020-03-26] MEDS: FAMOTIDINE 20 MG TABLET PO (10:17)
[2020-03-26] MEDS: HEPARIN SODIUM 5,000 UNITS/ML VIAL 5000 UNITS SUB-Q ×2 (10:17→20:49)
[2020-03-26] MEDS: METOPROLOL TARTRATE 25 MG TABLET 75 MG PO ×2 (10:17→20:49)
[2020-03-26] MEDS: FLUCONAZOLE 100 MG TABLET PO (10:17)
[2020-03-26] MEDS: SEVELAMER CARBONATE 800 MG TABLET 1600 MG PO ×3 (10:17→17:11)
[2020-03-26] MEDS: valACYclovir HCL 500 MG TABLET PO (10:18)
[2020-03-26] MEDS: VITAMIN B CMPLX/VIT C/FOLIC AC 1 CAPSULE 1 CAP PO (10:25)
--- NOTE | 2020-03-26 10:57 | PM.CNNEP ---
Assessment and Plan Assessment and plan (1) End stage renal disease: Code(s): N18.6 - End stage renal disease Status: Chronic (2) Hyperkalemia: Code(s): E87.5 - Hyperkalemia Status: Acute (3) Volume overload: Qualifiers: Hypervolemia type: unspecified Qualified Code(s): E87.70 - Fluid overload, unspecified Code(s): E87.70 - Fluid overload, unspecified Status: Acute (4) Acute respiratory failure: Qualifiers: Respiratory failure complication: hypoxia Qualified Code(s): J96.01 - Acute respiratory failure with hypoxia Code(s): J96.00 - Acute respiratory failure, unspecified whether with hypoxia or hypercapnia Status: Acute (5) Edema of left upper arm: Code(s): R60.0 - Localized edema Status: Acute (6) Anemia of chronic disease: Code(s): D63.8 - Anemia in other chronic diseases classified elsewhere Status: Acute Assessment and Plan: . Additional Plan Mark has end-stage renal disease. He was admitted with clear evidence of volume overload as well as severe hyperkalemia. He was instituted on urgent hemodialysis on the day of admission for correction of his electrolyte abnormalities and improvement in his volume status. He tolerated his dialysis treatment yesterday as well to get him back to his normal M/W/F schedule. In the past, his electrolyte abnormalities and his volume status are secondary to his noncompliance with his dialysis treatment but he is adamant that he did not miss any treatments before his presentation to the hospital. Perhaps his dry weight needs to be adjusted or he overindulged in his fluid intake over the weekend. I will continue follow patient with you while remains hospitalized and make further recommendations during his hospital course Thank you for allowing me to participate in care this patient. History of Present Illness Reason for Consult Consult date: 03/26/20 Reason for consult: end stage renal disease Chief Complaint Chief complaint: Weakness, shortness breath, dizziness. History of Present Illness Narrative: The patient is a 54 year old male with past medical history as outlined below who presented to [facility] ER on the day of admission with several complaints including shortness of breath, dizziness, and weakness. The patient apparently had regularly scheduled dialysis session on Wednesday (03/22/20) for unclear reasons which was apparently uneventful although his last dialysis treatment ended about 30 minutes early due to pain/discomfort in his left arm where his dialysis access is. He has not had fever, chills, sweats, chest pain, nausea, vomiting, diarrhea, or any sick contacts. He reports a cough of clear sputum but this is somewhat of a chronic issue. Work-up and evaluation in the ER demonstrated the patient to be in mild respiratory distress.. Routine blood work noted severe hyperkalemia and his CXR was noteworthy for volume overload. He was given insulin, dextrose, and calcium gluconate for his hyperkalemia and was transferred to ICU for further management and urgent dialysis. Since admission, he has received two dialysis treatments (one on admission and one yesterday) and he clinically seems to be doing better. Given his ongoing issues with his left arm swelling, he had a CT scan of his chest for further evaluation. . Renal consultation was requested due to his end-stage renal disease. The patient normally dialyzes on a Wednesday, Wednesday, Wednesday schedule. He has been compliant with his dialysis treatments recently but he has had multiple hospitalizations for the same admission symptoms in the past. Currently, he appears in acute distress. Review of Systems Review of Systems: Narrative: As per HPI. [facility] Past Medical History Medical History Anemia of chronic disease Asthma Cardiac arrest With succes
[2020-03-26 16:40] VITALS: BP 142/78; PULSE 79; RESP 16; TEMP 37.3; O2SAT 91
--- NOTE | 2020-03-26 16:40 | PM.IMPN ---
Progress Note: A&P Assessment and Plan (1) Volume overload: Qualifiers: Hypervolemia type: unspecified Qualified Code(s): E87.70 - Fluid overload, unspecified Code(s): E87.70 - Fluid overload, unspecified Status: Acute Assessment and Plan: Patient states he has been compliant with dialysis except that his dialysis was stopped early on Wednesday due to pain in his left arm. He presents with complaints of dizziness found to have severe hyperkalemia and fluid overload. Symptoms improved with urgent dialysis. Continue aggressive HD. Potassium today 3.7 and will resume his Wednesday schedule 03/27 (2) Hyperkalemia: Code(s): E87.5 - Hyperkalemia Status: Acute Assessment and Plan: Potassium 7.3 on admission. Patient states he has not missed any treatments recently but felt his fluid overload and hyperkalemia are related to noncompliance. He required urgent dialysis on the night of admission. Potassium better now at 3.7. Continue to follow. (3) Edema of left upper arm: Code(s): R60.0 - Localized edema Status: Acute Assessment and Plan: Edema has improved with the dialysis. Does not appear to be infected. White count was elevated 12,000 but on repeat is normal now. Follow up on blood cultures. Continue IV antibiotics for now. Venous Doppler showing no evidence of venous thrombosis. 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 Occlusion at the site of previous injury and patient relates that having happened several years ago. Has had chronic edema in that arm (4) End-stage renal disease on hemodialysis: Code(s): N18.6 - End stage renal disease; Z99.2 - Dependence on renal dialysis Status: Acute Assessment and Plan: As above. Continue aggressive dialysis to improve fluid status. (5) Hypertension: Qualifiers: Hypertension type: essential hypertension Qualified Code(s): I10 - Essential (primary) hypertension Code(s): I10 - Essential (primary) hypertension Status: Chronic Assessment and Plan: Blood pressure reviewed on 03/26/2020. Blood pressure labile. Currently well controlled however. Currently on Diovan, metoprolol and diltiazem. Heart rate well controlled. Will continue to monitor for now. Blood pressure may smooth out once fluid status is improved. (6) Anemia of chronic disease: Code(s): D63.8 - Anemia in other chronic diseases classified elsewhere Status: Acute Assessment and Plan: Hemoglobin low in the 9-10 range but stable. Most likely related to his renal failure. Continue to monitor. Subjective Date/time seen: 03/26/20 16:40 Interval history: Date of visit 03/26. 54yo male with ESRD here for SOB and found to have fluid overload. Feels better today but some head congestion and dry cough. Shortness of breath improved. He wears oxygen as needed at home at 2 L. he only uses oxygen once a week on average when feeling short of breath. He completed the antibiotics for the left arm shunt infection few weeks ago. . Patient did receive dialysis 03/24 and 03/25. . Exam Narrative: Exam Narrative: AF 150/70 76 Gen: NARD currently lying in bed Chest: Faint right basilar crackle, nml RR. CV: RRR S1-S2. Telemetry showing no significant dysrhythmias Abd: Soft. Nontender. Positive bowel sounds. Ext: No pedal edema. There is a left upper extremity fistula with positive thrill and bruit and currently accessed. Left upper extremity that is significantly edematous. No erythema. Neuro: No focal findings on limited exam Psych: Pleasant and co
[2020-03-26 20:35] VITALS: PULSE 78; RESP 16; O2SAT 97
[2020-03-26 20:49] VITALS: PULSE 79
[2020-03-26] MEDS: TERAZOSIN HCL 5 MG CAPSULE PO (20:49)
[2020-03-26] MEDS: VALSARTAN 80 MG TABLET PO (20:49)
[2020-03-26] MEDS: AMITRIPTYLINE HCL 25 MG TABLET 50 MG PO (20:49)
[2020-03-26] MEDS: guaiFENesin 600 MG/DEXTROMETHORPHAN 30 MG SR TAB 12 HR 1 TAB PO (20:49)
[2020-03-26 21:54] VITALS: BP 171/82; PULSE 78; RESP 16; TEMP 37.1; O2SAT 97
[2020-03-27] VITALS (25 sets, daily range): BP systolic 128–174; BP diastolic 59–89; PULSE 63–85; RESP 18–20; TEMP 36.6–37; O2SAT 94–98
[2020-03-27 06:24] LABS: Blood Urea Nitrogen 28 mg/dL (9-20); Carbon Dioxide 26 mmol/L (22-30); Chloride 93 mmol/L (98-107); Estimated CRCL calculation 8 ml/min; Estimated Glomerular Filt Rate 7; Glucose 83 mg/dL (75-110); Potassium 4.6 mmol/L (3.4-5.0); Sodium 132 mmol/L (137-145)
--- NOTE | 2020-03-27 09:15 | PC.NURSE ---
Pt to dialysis, per bed.
--- NOTE | 2020-03-27 10:19 | P.CDI_ITS ---
CDI Query Clarification Request - There is documentation that pt has home O2 at 2L that he uses as needed - 03/24 ABG's pH 7.409, pCO2 26.6, pO2 57.1, HCO3 16.4, sats 90% on O2 at 3L - Hypoxia has been documented by [employer] professor - Pt placed on O2 at 4L on 03/24 and has been weaned to 2L - Nephrology has documented acute respiratory failure - SOB documented by hospitalists Please clarify if there is a corresponding diagnosis for above: * Acute respiratory failure * Chronic respiratory failure * Acute on chronic respiratory failure * Other * Not clinically significant * Unable to determine <Myrtle Robins RN - Last Filed: 03/27/20 10:34>
--- NOTE | 2020-03-27 10:19 | WPDCDIQUERY2 ---
CDI Query Clarification Request - There is documentation that pt has home O2 at 2L that he uses as needed - 03/24 ABG's pH 7.409, pCO2 26.6, pO2 57.1, HCO3 16.4, sats 90% on O2 at 3L - Hypoxia has been documented by associate professor of automation - Pt placed on O2 at 4L on 03/24 and has been weaned to 2L - Nephrology has documented acute respiratory failure - SOB documented by hospitalists Please clarify if there is a corresponding diagnosis for above: Acute respiratory failure Chronic respiratory failure Acute on chronic respiratory failure Other Not clinically significant Unable to determine <Myrtle Robins RN - Last Filed: 03/27/20 10:34>
[2020-03-27] MEDS: EPOETIN ALFA-EPBX 10,000 UNITS/ML VIAL 10000 UNITS IV PUSH (11:25)
[2020-03-27] MEDS: guaiFENesin 600 MG/DEXTROMETHORPHAN 30 MG SR TAB 12 HR 1 TAB PO ×2 (11:39→20:30)
--- NOTE | 2020-03-27 12:03 | PM.PNNEP ---
Progress Note: A&P Assessment and Plan (1) End stage renal disease: Code(s): N18.6 - End stage renal disease Status: Chronic Assessment and Plan: HD today and continue M/W/F schedule follow electrolytes, volume status, and clearance (2) Hyperkalemia: Code(s): E87.5 - Hyperkalemia Status: Acute Assessment and Plan: resolved with dialytic intervention follow repeat levels (3) Volume overload: Qualifiers: Hypervolemia type: unspecified Qualified Code(s): E87.70 - Fluid overload, unspecified Code(s): E87.70 - Fluid overload, unspecified Status: Acute Assessment and Plan: clinically improving suspect his dry weight may need adjustment check CXR post-HD today (4) Acute respiratory failure: Qualifiers: Respiratory failure complication: hypoxia Qualified Code(s): J96.01 - Acute respiratory failure with hypoxia Code(s): J96.00 - Acute respiratory failure, unspecified whether with hypoxia or hypercapnia Status: Acute Assessment and Plan: due to volume overload push fluid removal as tolerated (5) Edema of left upper arm: Code(s): R60.0 - Localized edema Status: Acute Assessment and Plan: (acute on?) chronic issue CT of chest results noted: - 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 Subjective Date/time seen: 03/27/20 12:03 Tolerating dialysis treatment at the time of my visit (seen on HD at 11:50); still requiring supplemental oxygen but major complaint is that of sciatic pain in right leg; no other acute complaints voiced. Exam Narrative: Exam Narrative: General: WD/WN AA male in NAD Heart: normal S1 and S2; no rub Lungs: decreased at bases Abdomen: soft, nontender, nondistended, positive bowel sounds Extremities: no cyanosis or clubbing; trace edema Skin: no rash Objective Data Vital Signs Vital Signs: Vital Signs Temp Pulse Resp BP Pulse Ox 03/27/20 11:30 66 142/68 H 03/27/20 11:15 64 140/72 03/27/20 11:00 63 139/64 03/27/20 10:45 69 160/71 H 03/27/20 10:30 64 138/76 03/27/20 10:15 66 142/72 H 03/27/20 10:00 65 145/72 H 03/27/20 09:45 71 137/72 03/27/20 09:30 67 148/69 H 03/27/20 09:26 68 142/69 H 03/27/20 09:12 36.8 C 70 20 163/80 H 03/27/20 06:30 36.6 C 71 20 157/71 H 98 03/26/20 21:54 37.1 C 78 16 171/82 H 97 03/26/20 20:49 79 03/26/20 20:35 78 16 97 03/26/20 16:40 37.3 C 79 16 142/78 H 91 Intake/Output Intake/Output: Intake & Output 03/24/20 03/25/20 03/26/20 03/27/20 23:59 23:59 23:59 23:59 Intake Total 1929 2360 340 Output Total 1999 -1999 2360 340 Meds/Results Medications: Active Medications Generic Name Dose Route Start Last Admin Trade Name Freq PRN Reason Stop Dose Admin Hydrocodone Bitart/Acetaminophen 1 tab 03/24/20 22:33 03/27/20 09:06 [place] 10-325 Mg PO 1 tab Q6H PRN Administration Pain Rated 7-10 Amitriptyline HCl 50 mg 03/24/20 22:45 03/26/20 20:49 Elavil PO 50 mg HS JOSE ANGEL Administration Diltiazem HCl 300 mg 03/24/20 22:45 03/26/20 20:49 Cardizem Cd PO 300 mg HS JOSE ANGEL Administration Epoetin Wes-epbx 10,000 units 03/27/20 19:30 03/27/20 11:25 Retacrit IV PUSH 03/27/20 19:31 10,000 units ONCE ONE Administration Famotidine 20 mg 03/25/20 09:00 03/26/20 10:17 Pepcid PO 20 mg DAILY JOSE ANGEL Administration Fluconazole 100 mg 03/25/20 09:00 03/26/20 10:17 Diflucan Tablet PO 100 mg DAILY JOSE ANGEL Administration Guaifenesin/Dextromethorphan 1 t
--- NOTE | 2020-03-27 13:45 | PC.NURSE ---
Pt returned from dialysis.
[2020-03-27] MEDS: FLUCONAZOLE 100 MG TABLET PO (13:48)
[2020-03-27] MEDS: VITAMIN B CMPLX/VIT C/FOLIC AC 1 CAPSULE 1 CAP PO (13:49)
[2020-03-27] MEDS: METOPROLOL TARTRATE 25 MG TABLET 75 MG PO ×2 (13:49→20:29)
[2020-03-27] MEDS: valACYclovir HCL 500 MG TABLET PO (13:49)
[2020-03-27] MEDS: SEVELAMER CARBONATE 800 MG TABLET 1600 MG PO ×2 (13:50→17:17)
[2020-03-27] MEDS: FAMOTIDINE 20 MG TABLET PO (13:57)
--- NOTE | 2020-03-27 15:56 | PM.IMPN ---
Progress Note: A&P Assessment and Plan (1) Volume overload: Qualifiers: Hypervolemia type: unspecified Qualified Code(s): E87.70 - Fluid overload, unspecified Code(s): E87.70 - Fluid overload, unspecified Status: Acute Assessment and Plan: Patient states he has been compliant with dialysis except that his dialysis was stopped early on Wednesday due to pain in his left arm. He presents with complaints of dizziness found to have severe hyperkalemia and fluid overload. Symptoms improved with urgent dialysis. Continue aggressive HD. Potassium today 4.6 and 2000 ml removed again today but still sob after and chest xray still PVR (2) Hyperkalemia: Code(s): E87.5 - Hyperkalemia Status: Acute Assessment and Plan: Potassium 7.3 on admission. Patient states he has not missed any treatments recently but felt his fluid overload and hyperkalemia are related to noncompliance. He required urgent dialysis on the night of admission. Potassium better now at 4.6. Continue to follow. (3) Edema of left upper arm: Code(s): R60.0 - Localized edema Status: Acute Assessment and Plan: Edema has improved with the dialysis. Does not appear to be infected. White count was elevated 12,000 but on repeat is normal now. Follow up on blood cultures. Continue IV antibiotics for now. Venous Doppler showing no evidence of venous thrombosis. 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 Occlusion at the site of previous injury and patient relates that having happened several years ago. Has had chronic edema in that arm (4) End-stage renal disease on hemodialysis: Code(s): N18.6 - End stage renal disease; Z99.2 - Dependence on renal dialysis Status: Acute Assessment and Plan: As above. Continue aggressive dialysis to improve fluid status. (5) Hypertension: Qualifiers: Hypertension type: essential hypertension Qualified Code(s): I10 - Essential (primary) hypertension Code(s): I10 - Essential (primary) hypertension Status: Chronic Assessment and Plan: Blood pressure reviewed on 03/27/2020. Blood pressure labile. Currently well controlled however. Currently on Diovan, metoprolol and diltiazem. Heart rate well controlled. Will continue to monitor for now. (6) Anemia of chronic disease: Code(s): D63.8 - Anemia in other chronic diseases classified elsewhere Status: Acute Assessment and Plan: Hemoglobin low in the 9-10 range but stable. Most likely related to his renal failure. Continue to monitor. 8.8 today Subjective Date/time seen: 03/27/20 15:56 Interval history: Date of visit 03/27. 54yo male with ESRD here for SOB and found to have fluid overload. Feels better today but some head congestion and dry cough. Shortness of breath improved. He wears oxygen as needed at home at 2 L. he only uses oxygen once a week on average when feeling short of breath. He completed the antibiotics for the left arm shunt infection few weeks ago. . Patient did receive dialysis 03/24 and 03/25.and again today does complain of chronic left thigh pain too . Exam Narrative: Exam Narrative: AF 140/80 72 sat 98% ra Gen: NARD currently lying in bed Chest: Faint right basilar crackle as before. CV: RRR S1-S2. Telemetry showing no significant dysrhythmias Abd: Soft. Nontender. Positive bowel sounds. Ext: No pedal edema. There is a left upper extremity fistula with positive thrill and bruit and currently accessed. Left upper extremity that is significantly edematous. No erythema. Neuro: No focal finding
[2020-03-27 18:33] LABS: Vancomycin Random 14.8 ug/mL (10-20)
[2020-03-27] MEDS: AMITRIPTYLINE HCL 25 MG TABLET 50 MG PO (20:30)
[2020-03-27] MEDS: TERAZOSIN HCL 5 MG CAPSULE PO (20:30)
[2020-03-27] MEDS: VALSARTAN 80 MG TABLET PO (20:30)
[2020-03-27] MEDS: HEPARIN SODIUM 5,000 UNITS/ML VIAL 5000 UNITS SUB-Q (20:31)
[2020-03-28] VITALS (8 sets, daily range): BP systolic 138–169; BP diastolic 78–101; PULSE 74–78; RESP 16–18; TEMP 36.3–36.8; O2SAT 94–100
[2020-03-28 06:23] LABS: Estimated CRCL calculation 10 ml/min; Estimated Glomerular Filt Rate 9
[2020-03-28] MEDS: FAMOTIDINE 20 MG TABLET PO (08:08)
[2020-03-28] MEDS: SEVELAMER CARBONATE 800 MG TABLET 1600 MG PO ×3 (08:08→16:59)
[2020-03-28] MEDS: valACYclovir HCL 500 MG TABLET PO (08:09)
[2020-03-28] MEDS: FLUCONAZOLE 100 MG TABLET PO (08:09)
[2020-03-28] MEDS: VITAMIN B CMPLX/VIT C/FOLIC AC 1 CAPSULE 1 CAP PO (08:09)
[2020-03-28] MEDS: guaiFENesin 600 MG/DEXTROMETHORPHAN 30 MG SR TAB 12 HR 1 TAB PO ×2 (08:10→20:48)
[2020-03-28] MEDS: HEPARIN SODIUM 5,000 UNITS/ML VIAL 5000 UNITS SUB-Q ×2 (08:10→20:40)
[2020-03-28] MEDS: METOPROLOL TARTRATE 25 MG TABLET 75 MG PO ×2 (08:10→20:40)
--- NOTE | 2020-03-28 13:55 | PM.IMPN ---
Progress Note: A&P Assessment and Plan (1) Volume overload: Qualifiers: Hypervolemia type: unspecified Qualified Code(s): E87.70 - Fluid overload, unspecified Code(s): E87.70 - Fluid overload, unspecified Status: Acute Assessment and Plan: Patient states he has been compliant with dialysis except that his dialysis was stopped early on Wednesday due to pain in his left arm. He presents with complaints of dizziness found to have severe hyperkalemia and fluid overload. Symptoms improved with urgent dialysis. Continue aggressive HD. 2000 ml removed 03/27 but still sob after and chest xray still PVR. slept well and not sob lying in bed (2) Hyperkalemia: Code(s): E87.5 - Hyperkalemia Status: Acute Assessment and Plan: Potassium 7.3 on admission. Patient states he has not missed any treatments recently but felt his fluid overload and hyperkalemia are related to noncompliance. He required urgent dialysis on the night of admission. . Continue to follow. (3) Edema of left upper arm: Code(s): R60.0 - Localized edema Status: Acute Assessment and Plan: Edema has improved with the dialysis. Does not appear to be infected. White count was elevated 12,000 but on repeat is normal now. Follow up on blood cultures neg.. Venous Doppler showing no evidence of venous thrombosis. 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 Occlusion at the site of previous injury and patient relates that having happened several years ago. Has had chronic edema in that arm (4) End-stage renal disease on hemodialysis: Code(s): N18.6 - End stage renal disease; Z99.2 - Dependence on renal dialysis Status: Acute Assessment and Plan: As above. Continue aggressive dialysis to improve fluid status. (5) Hypertension: Qualifiers: Hypertension type: essential hypertension Qualified Code(s): I10 - Essential (primary) hypertension Code(s): I10 - Essential (primary) hypertension Status: Chronic Assessment and Plan: Blood pressure reviewed on 03/28/2020. Blood pressure labile. Currently well controlled however. Currently on Diovan, metoprolol and diltiazem. Heart rate well controlled. Will continue to monitor for now. (6) Anemia of chronic disease: Code(s): D63.8 - Anemia in other chronic diseases classified elsewhere Status: Acute Assessment and Plan: Hemoglobin low in the 9-10 range but stable. Most likely related to his renal failure. Subjective Date/time seen: 03/28/20 13:55 Interval history: Date of visit 03/28. 54yo male with ESRD here for SOB and found to have fluid overload. Feels better today but some head congestion and dry cough still. . Shortness of breath improved. He wears oxygen as needed at home at 2 L. he only uses oxygen once a week on average when feeling short of breath. He completed the antibiotics for the left arm shunt infection few weeks ago. . Patient did receive dialysis 03/24 and 03/25.and 03/27 does complain of chronic left thigh pain too . Exam Narrative: Exam Narrative: AF 154/82 84 sat 94% ra Gen: NARD currently lying in bed Chest: clear today CV: RRR S1-S2. Telemetry showing no significant dysrhythmias Abd: Soft. Nontender. Positive bowel sounds. Ext: No pedal edema. There is a left upper extremity fistula with positive thrill and bruit and currently accessed. Left upper extremity that is significantly edematous. No erythema. Neuro: No focal findings on limited exam. Psych: Pleasant and cooperative. Normal mood and affect Skin: Warm and dry.
--- NOTE | 2020-03-28 17:21 | P.PNNP_ITS ---
Progress Note: A&P Assessment and Plan (1) End stage renal disease: Code(s): N18.6 - End stage renal disease Status: Chronic Assessment and Plan: * HD tomorrow and continue // schedule * follow electrolytes, volume status, and clearance * will try to be more aggressive with fluid removal as tolerated (2) Hyperkalemia: Code(s): E87.5 - Hyperkalemia Status: Acute Assessment and Plan: * resolved with dialytic intervention * follow repeat levels (3) Volume overload: Qualifiers: Hypervolemia type: unspecified Qualified Code(s): E87.70 - Fluid overload, unspecified Code(s): E87.70 - Fluid overload, unspecified Status: Acute Assessment and Plan: * clinically improving * suspect his dry weight may need adjustment * CXR post-HD yesterday noted * push fluid removal as tolerated by hemodynamics (4) Acute respiratory failure: Qualifiers: Respiratory failure complication: hypoxia Qualified Code(s): J96.01 - Acute respiratory failure with hypoxia Code(s): J96.00 - Acute respiratory failure, unspecified whether with hypoxia or hypercapnia Status: Acute Assessment and Plan: * due to volume overload * continue fluid removal as tolerated (5) Edema of left upper arm: Code(s): R60.0 - Localized edema Status: Acute Assessment and Plan: * (acute on?) chronic issue * CT of chest results noted: - 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 Schaefer. Will continue to follow. Subjective Date/time seen: 03/28/20 17:21 Tolerated dialysis yesterday without any issues or problems; repeat CXR post dialysis still with evidence of congestion; only other complaint is that of left thigh pain. Exam Narrative: Exam Narrative: General: WD/WN AA male in NAD Heart: normal S1 and S2; no rub Lungs: coarse and decreased at bases Abdomen: soft, nontender, nondistended, positive bowel sounds Extremities: no cyanosis or clubbing; trace edema Skin: no nodules Objective Data Vital Signs Vital Signs: Vital Signs Temp Pulse Resp BP Pulse Ox 03/28/20 14:39 78 138/78 03/28/20 14:07 36.8 C 75 16 158/101 H 95 03/28/20 10:55 94 03/28/20 08:10 78 03/28/20 08:08 18 97 03/28/20 06:03 36.3 C L 78 18 157/82 H 97 03/27/20 20:29 84 03/27/20 20:28 36.9 C 85 18 174/89 H 98 Intake/Output Intake/Output: Intake & Output 03/25/20 03/26/20 03/27/20 03/28/20 23:59 23:59 23:59 23:59 Intake Total 1930 2360 1860 940 Output Total 3007 2300 Balance -1077 2360 -440 940 Meds/Results Medications: Active Medications Generic Name Dose Route Start Last Admin Trade Name Freq PRN Reason Stop Dose Admin Hydrocodone Bitart/Acetaminophen 1 tab 03/24/20 22:33 03/28/20 13:30 [place] 10-325 Mg PO 1 tab Q6H PRN Administration Pain Rated 7-10 Amitriptyline
--- NOTE | 2020-03-28 17:21 | PM.PNNEP ---
Progress Note: A&P Assessment and Plan (1) End stage renal disease: Code(s): N18.6 - End stage renal disease Status: Chronic Assessment and Plan: HD tomorrow and continue M// schedule follow electrolytes, volume status, and clearance will try to be more aggressive with fluid removal as tolerated (2) Hyperkalemia: Code(s): E87.5 - Hyperkalemia Status: Acute Assessment and Plan: resolved with dialytic intervention follow repeat levels (3) Volume overload: Qualifiers: Hypervolemia type: unspecified Qualified Code(s): E87.70 - Fluid overload, unspecified Code(s): E87.70 - Fluid overload, unspecified Status: Acute Assessment and Plan: clinically improving suspect his dry weight may need adjustment CXR post-HD yesterday noted push fluid removal as tolerated by hemodynamics (4) Acute respiratory failure: Qualifiers: Respiratory failure complication: hypoxia Qualified Code(s): J96.01 - Acute respiratory failure with hypoxia Code(s): J96.00 - Acute respiratory failure, unspecified whether with hypoxia or hypercapnia Status: Acute Assessment and Plan: due to volume overload continue fluid removal as tolerated (5) Edema of left upper arm: Code(s): R60.0 - Localized edema Status: Acute Assessment and Plan: (acute on?) chronic issue CT of chest results noted: - 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 Schaefer. Will continue to follow. Subjective Date/time seen: 03/28/20 17:21 Tolerated dialysis yesterday without any issues or problems; repeat CXR post dialysis still with evidence of congestion; only other complaint is that of left thigh pain. Exam Narrative: Exam Narrative: General: WD/WN AA male in NAD Heart: normal S1 and S2; no rub Lungs: coarse and decreased at bases Abdomen: soft, nontender, nondistended, positive bowel sounds Extremities: no cyanosis or clubbing; trace edema Skin: no nodules Objective Data Vital Signs Vital Signs: Vital Signs Temp Pulse Resp BP Pulse Ox 03/28/20 14:39 78 138/78 03/28/20 14:07 36.8 C 75 16 158/101 H 95 03/28/20 10:55 94 03/28/20 08:10 78 03/28/20 08:08 18 97 03/28/20 06:03 36.3 C L 78 18 157/82 H 97 03/27/20 20:29 84 03/27/20 20:28 36.9 C 85 18 174/89 H 98 Intake/Output Intake/Output: Intake & Output 03/25/20 03/26/20 03/27/20 03/28/20 23:59 23:59 23:59 23:59 Intake Total 1930 2360 1860 940 Output Total 3007 2300 Balance -1077 2360 -440 940 Meds/Results Medications: Active Medications Generic Name Dose Route Start Last Admin Trade Name Freq PRN Reason Stop Dose Admin Hydrocodone Bitart/Acetaminophen 1 tab 03/24/20 22:33 03/28/20 13:30 [place] 10-325 Mg PO 1 tab Q6H PRN Administration Pain Rated 7-10 Amitriptyline HCl 50 mg 03/24/20 22:45 03/27/20 20:30 Elavil PO 50 mg HS JOSE ANGEL Administration Diltiazem HCl 300 mg 03/24/20 22:45 03/27/20 20:31 Cardizem Cd PO 300 mg HS JOSE ANGEL Administration Famotidine 20 mg 03/25/20 09:00 03/28/20 08:08 Pepcid PO 20 mg DAILY JOSE ANGEL Administration Fluconazole 100 mg 03/25/20 09:00 03/28/20 08:09 Diflucan Tablet PO 100 mg DAILY JOSE ANGEL Administration Guaifenesin/Dextromethorphan 1 tab 03/26/20 21:00 03/28/20 08:10 Mucinex Dm 12 Hr PO 1 tab Q12HR JOSE ANGEL Administration Heparin Sodium (Porcine) 5,000 units 03/25/20 09:00 03/28/20 08:10 Heparin Sodium SUB-Q 5,000 units Q12HR JOSE ANGEL Administration Albumin Human 50 mls @ 999 mls/hr 03/24/20 17:05 [place]
[2020-03-28] MEDS: CALCIUM CARBONATE (TUMS) 500 MG (200 MG ELEMENTAL) PO (18:58)
[2020-03-28] MEDS: VALSARTAN 80 MG TABLET PO (20:39)
[2020-03-28] MEDS: TERAZOSIN HCL 5 MG CAPSULE PO (20:39)
[2020-03-28] MEDS: AMITRIPTYLINE HCL 25 MG TABLET 50 MG PO (20:39)
[2020-03-29] VITALS (24 sets, daily range): BP systolic 132–206; BP diastolic 47–91; PULSE 62–72; RESP 16–20; TEMP 36.5–37; O2SAT 93–98
[2020-03-29 06:24] LABS: Blood Urea Nitrogen 30 mg/dL (9-20); Calcium 8.4 mg/dL (8.4-10.2); Carbon Dioxide 26 mmol/L (22-30); Chloride 94 mmol/L (98-107); Estimated CRCL calculation 7 ml/min; Estimated Glomerular Filt Rate 6; Glucose 125 mg/dL (75-110); Potassium 3.9 mmol/L (3.4-5.0); Sodium 132 mmol/L (137-145)
[2020-03-29] MEDS: METOPROLOL TARTRATE 25 MG TABLET 75 MG PO (08:33)
[2020-03-29] MEDS: SEVELAMER CARBONATE 800 MG TABLET 1600 MG PO ×2 (08:33→15:33)
[2020-03-29] MEDS: VITAMIN B CMPLX/VIT C/FOLIC AC 1 CAPSULE 1 CAP PO (08:35)
[2020-03-29] MEDS: FAMOTIDINE 20 MG TABLET PO (08:36)
[2020-03-29] MEDS: HEPARIN SODIUM 5,000 UNITS/ML VIAL 5000 UNITS SUB-Q (08:37)
[2020-03-29] MEDS: valACYclovir HCL 500 MG TABLET PO (08:37)
[2020-03-29] MEDS: FLUCONAZOLE 100 MG TABLET PO (08:38)
[2020-03-29] MEDS: guaiFENesin 600 MG/DEXTROMETHORPHAN 30 MG SR TAB 12 HR 1 TAB PO (08:38)
--- NOTE | 2020-03-29 10:50 | PCHDNOTE ---
To dialysis via bed.
--- NOTE | 2020-03-29 10:56 | PCNWS ---
Weekly nutritional screen. Patient is tolerating current diet with adequate intake. Patient desires a switch to a regular diet to include a larger variety of food options. Nursing was notified. No weight loss reported. No nutritional needs at this time.
--- NOTE | 2020-03-29 11:21 | PCNSR ---
On 03/29/20, the student, Alonso Head, provided care and completed [facility] documentation on this patient. I have reviewed the student's documentation and agree with the findings.
--- NOTE | 2020-03-29 12:23 | P.PNNP_ITS ---
Progress Note: A&P Assessment and Plan (1) End stage renal disease: Code(s): N18.6 - End stage renal disease Status: Chronic Assessment and Plan: * HD today and continue M// schedule * follow electrolytes, volume status, and clearance * will try to be more aggressive with fluid removal as tolerated (2) Hyperkalemia: Code(s): E87.5 - Hyperkalemia Status: Acute Assessment and Plan: * resolved with dialytic intervention * follow repeat levels (3) Volume overload: Qualifiers: Hypervolemia type: unspecified Qualified Code(s): E87.70 - Fluid overload, unspecified Code(s): E87.70 - Fluid overload, unspecified Status: Acute Assessment and Plan: * clinically improving * suspect his dry weight may need adjustment * CXR post-HD day before yesterday noted * push fluid removal as tolerated by hemodynamics (4) Acute respiratory failure: Qualifiers: Respiratory failure complication: hypoxia Qualified Code(s): J96.01 - Acute respiratory failure with hypoxia Code(s): J96.00 - Acute respiratory failure, unspecified whether with hypoxia or hypercapnia Status: Acute Assessment and Plan: * due to volume overload * continue fluid removal as tolerated (5) Edema of left upper arm: Code(s): R60.0 - Localized edema Status: Acute Assessment and Plan: * (acute on?) chronic issue * CT of chest results noted: - 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 Subjective Date/time seen: 03/29/20 12:23 Tolerating dialysis at the time of my visit (seen on HD at ~ 12:00PM); off oxyg en and respiratory status seems to be doing better in general; no distress noted. Exam Narrative: Exam Narrative: General: WD/WN AA male in NAD Heart: normal S1 and S2; no rub Lungs: coarse and decreased at bases Abdomen: soft, nontender, nondistended, positive bowel sounds Extremities: no cyanosis or clubbing; trace edema Skin: warm and dry Objective Data Vital Signs Vital Signs: Vital Signs Temp Pulse Resp BP Pulse Ox 07/17/20 12:15 63 159/80 H 03/29/20 12:00 63 177/85 H 03/29/20 11:45 69 181/70 H 03/29/20 11:30 62 168/82 H 03/29/20 11:15 65 182/91 H 03/29/20 11:08 66 185/88 H 03/29/20 10:55 36.6 C 72 20 154/78 H 03/29/20 08:38 16 94 03/29/20 08:33 67 03/29/20 04:58 36.5 C 67 16 132/59 L 93 03/28/20 20:40 74 03/28/20 20:38 36.8 C 74 16 169/79 H 100 03/28/20 14:39 78 138/78 03/28/20 14:07 36.8 C 75 16 158/101 H 95 Intake/Output Intake/Output: Intake & Output 03/26/20 03/27/20 03/28/20 03/29/20 23:59 23:59 23:59 23:59 Intake Total 2360 1860 1380 677 Output Total 2300 250 Balance 2360 -440 1380 427 Meds/Results Medications: Active Medications Generic Name Dose Route Start Last Admin Trade Name Freq
--- NOTE | 2020-03-29 12:23 | PM.PNNEP ---
Progress Note: A&P Assessment and Plan (1) End stage renal disease: Code(s): N18.6 - End stage renal disease Status: Chronic Assessment and Plan: HD today and continue M// schedule follow electrolytes, volume status, and clearance will try to be more aggressive with fluid removal as tolerated (2) Hyperkalemia: Code(s): E87.5 - Hyperkalemia Status: Acute Assessment and Plan: resolved with dialytic intervention follow repeat levels (3) Volume overload: Qualifiers: Hypervolemia type: unspecified Qualified Code(s): E87.70 - Fluid overload, unspecified Code(s): E87.70 - Fluid overload, unspecified Status: Acute Assessment and Plan: clinically improving suspect his dry weight may need adjustment CXR post-HD day before yesterday noted push fluid removal as tolerated by hemodynamics (4) Acute respiratory failure: Qualifiers: Respiratory failure complication: hypoxia Qualified Code(s): J96.01 - Acute respiratory failure with hypoxia Code(s): J96.00 - Acute respiratory failure, unspecified whether with hypoxia or hypercapnia Status: Acute Assessment and Plan: due to volume overload continue fluid removal as tolerated (5) Edema of left upper arm: Code(s): R60.0 - Localized edema Status: Acute Assessment and Plan: (acute on?) chronic issue CT of chest results noted: - 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 Subjective Date/time seen: 03/29/20 12:23 Tolerating dialysis at the time of my visit (seen on HD at ~ 12:00PM); off oxygen and respiratory status seems to be doing better in general; no distress noted. Exam Narrative: Exam Narrative: General: WD/WN AA male in NAD Heart: normal S1 and S2; no rub Lungs: coarse and decreased at bases Abdomen: soft, nontender, nondistended, positive bowel sounds Extremities: no cyanosis or clubbing; trace edema Skin: warm and dry Objective Data Vital Signs Vital Signs: Vital Signs Temp Pulse Resp BP Pulse Ox 03/29/20 12:15 63 159/80 H 03/29/20 12:00 63 177/85 H 03/29/20 11:45 69 181/70 H 03/29/20 11:30 62 168/82 H 03/29/20 11:15 65 182/91 H 03/29/20 11:08 66 185/88 H 03/29/20 10:55 36.6 C 72 20 154/78 H 03/29/20 08:38 16 94 03/29/20 08:33 67 03/29/20 04:58 36.5 C 67 16 132/59 L 93 03/28/20 20:40 74 03/28/20 20:38 36.8 C 74 16 169/79 H 100 03/28/20 14:39 78 138/78 03/28/20 14:07 36.8 C 75 16 158/101 H 95 Intake/Output Intake/Output: Intake & Output 03/26/20 03/27/20 03/28/20 03/29/20 23:59 23:59 23:59 23:59 Intake Total 2360 1860 1380 677 Output Total 2300 250 Balance 2360 -440 1380 427 Meds/Results Medications: Active Medications Generic Name Dose Route Start Last Admin Trade Name Freq PRN Reason Stop Dose Admin Hydrocodone Bitart/Acetaminophen 1 tab 03/24/20 22:33 03/29/20 05:43 Barton 10-325 Mg PO 1 tab Q6H PRN Administration Pain Rated 7-10 Amitriptyline HCl 50 mg 03/24/20 22:45 03/28/20 20:39 Elavil PO 50 mg HS JOSE ANGEL Administration Calcium Carbonate 200 mg 03/28/20 17:49 03/28/20 18:58 Tums PO 200 mg Q6H PRN Administration Indigestion Diltiazem HCl 300 mg 03/24/20 22:45 03/28/20 20:39 Cardizem Cd PO 300 mg HS JOSE ANGEL Administration Epoetin Wes-epbx 10,000 units 03/29/20 19:00 Retacrit IV PUSH 03/29/20 19:01 ONCE ONE Famotidine 20 mg 03/25/20 09:00 03/29/20 08:36 Pepcid PO 20 mg DAILY JOSE ANGEL Administration Fluconazole 100 mg 03/25/20 0
[2020-03-29] MEDS: EPOETIN ALFA-EPBX 10,000 UNITS/ML VIAL 10000 UNITS IV PUSH (14:21)
--- NOTE | 2020-03-29 15:25 | PC.NURSE ---
Returned from dialysis via bed.
--- NOTE | 2020-04-06 08:25 | PM.DS ---
DS: Admitting Diagnosis Admitting Diagnosis Admitting Diagnosis: Hyperkalemia DS: Discharge Diagnosis Discharge Diagnosis (1) Volume overload: Qualifiers: Hypervolemia type: unspecified Qualified Code(s): E87.70 - Fluid overload, unspecified Code(s): E87.70 - Fluid overload, unspecified Status: Acute Assessment and Plan: Patient states he has been compliant with dialysis except that his dialysis was stopped early on Wednesday before admission due to pain in his left arm. He presents with complaints of dizziness found to have severe hyperkalemia and fluid overload. Symptoms improved with urgent dialysis. Continue aggressive HD. and had over 3 L removed day of d/c . he receives his chronic hemodialysis at a center in [facility]. [place] (2) Hyperkalemia: Code(s): E87.5 - Hyperkalemia Status: Acute Assessment and Plan: Potassium 7.3 on admission. Patient states he has not missed any treatments recently but felt his fluid overload and hyperkalemia are related to noncompliance. He required urgent dialysis on the night of admission. . K was 3.9 predialysis the day of d/c (3) Edema of left upper arm: Code(s): R60.0 - Localized edema Status: Acute Assessment and Plan: Edema has improved with the dialysis. Does not appear to be infected. White count was elevated 12,000 but on repeat is normal now. Follow up on blood cultures neg.. Venous Doppler showing no evidence of venous thrombosis. 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 Occlusion at the site of previous injury and patient relates that having happened several years ago. Has had chronic edema in that arm (4) End-stage renal disease on hemodialysis: Code(s): N18.6 - End stage renal disease; Z99.2 - Dependence on renal dialysis Status: Acute Assessment and Plan: As above. Continue aggressive dialysis to improve fluid status. (5) Hypertension: Qualifiers: Hypertension type: essential hypertension Qualified Code(s): I10 - Essential (primary) hypertension Code(s): I10 - Essential (primary) hypertension Status: Chronic Assessment and Plan: Blood pressure reviewed on 03/29/2020. Blood pressure labile. . Currently on Diovan, metoprolol and diltiazem. Heart rate well controlled. Will continue to monitor for now. and follow up with his tail end rider (6) Anemia of chronic disease: Code(s): D63.8 - Anemia in other chronic diseases classified elsewhere Status: Acute Assessment and Plan: Hemoglobin low in the 9-10 range but stable. Most likely related to his renal failure. DS: Summary Hospital Course Hospital Course: 54-year-old hypertensive hemodialysis patient presented with fluid overload and hyperkalemia. With increased frequency and more aggressive dialysis fluid subsided. It was uncertain what his dry weight is and he follows with a different nephrologists in [place] at dialysis center there. At time of discharge his potassium was 3.9. We did encourage him to try to [place] if he was going to continue to utilize our hospital's . Time Spent with Patient Time attestation: Total time spent providing and/or coordinating discharge services: 35 minutes Exam Narrative: Exam Narrative: Condition discharge blood pressure 168/86 pulse is 64 saturating 98% on room air lungs clear CV regular rate rhythm left arm chronically swollen compared to right wit
== END 2020-03-29 18:40 | disposition home or self-care (01) | DRG 291 ==
LOC: ANHED 16:40 → ANHICU 18:33 → ANH3MED 03-27 11:17 → ANHICU 04-01 15:13
PROVIDERS: Physician Assistant; Admitting Provider Internal Medicine; Emergency Provider Emergency Medicine; PCP Family Medicine; Visit Provider Internal Medicine
DX: I13.2 Hypertensive heart and chronic kidney disease with heart failure and with stage 5 chronic kidney disease, or end stage renal disease (principal); I50.43 Acute on chronic combined systolic (congestive) and diastolic (congestive) heart failure; N18.6 End stage renal disease; J96.01 Acute respiratory failure with hypoxia; B20 Human immunodeficiency virus [HIV] disease; D69.3 Immune thrombocytopenic purpura; E87.5 Hyperkalemia; Z20.828 Contact with and (suspected) exposure to other viral communicable diseases; Z99.2 Dependence on renal dialysis; F41.8 Other specified anxiety disorders; E11.22 Type 2 diabetes mellitus with diabetic chronic kidney disease; D63.1 Anemia in chronic kidney disease; R60.0 Localized edema
CPT/HCPCS: 36415; 36600; 71045; 71260; 80048; 80053; 80069; 80202; 82565; 82805; 82948; 83036; 83735; 83880; 84100; 84484; 85025; 85027; 86140; 87040; 87635; 93005; 93971; 96374; 96375; 99285; A9270; C9803; G0257; J0610; J1644; J1815; J3370; J7030; Q5106; Q9967; U0003

== ENCOUNTER 2020-04-18 15:32 | Observation (INO) | payer MEDICARE, MEDICAID, SELFPAY ==
[2020-04-18] VITALS (20 sets, daily range): BP systolic 113–177; BP diastolic 80–103; PULSE 69–91; RESP 16–26; TEMP 36.6–37.1; O2SAT 97–100; BMI 19.2
--- NOTE | ~2020-04-18 | XR_ITS ---
EXAMINATION: XR chest 2V EXAM DATE: 04/18/2020 16:07 INDICATION: Shortness of breath. TECHNIQUE: Frontal and lateral projections of the chest obtained and reviewed. Comparison is made to prior examination from 03/27/2020. FINDINGS: There is more conspicuous airspace disease in the lower lung zones compared to previous ex amination, likely pneumonia or edema. The upper lung zones are clear. Mild cardiomegaly. Cardiac silh ouette is stable in size compared to prior exam. There is no pneumothorax suspected. There are no ple ural effusions. There are no osseous abnormalities identified. IMPRESSION: 1. Ill-defined moderate amount of bibasilar edema or infection. Reviewed, dictated and finalized at location A.
--- NOTE | 2020-04-18 15:40 | ECG_ITS ---
Measurements Intervals [place] Rate: 47 P: 20 WY: 233 QRS: -38 QRSD: 121 T: 73 QT: 412 QTc: 366 Interpretive Statements SINUS BRADYCARDIA WITH SINUS ARRHYTHMIA WITH FIRST DEGREE AV BLOCK LEFT AXIS DEVIATION INTRAVENTRICULAR CONDUCTION DELAY VOLTAGE CRITERIA FOR LVH PEAKED T WAVES- CONSIDER HYPERKALEMIA OR ISCHEMIA BORDERLINE ST-T WAVE ABNORMALITY- HIGH LATERAL LEADS BASELINE WANDER- V3 ABNORMAL ECG Electronically Signed On 04-18-2020 16:04:53 CDT by Wilfrid Mclaughlin D.O.
[2020-04-18 16:06] LABS: Basophils Percent Auto 0.4 % (0.2-1.2); Eosinophils Absolute Auto 0.1 K/mm3 (0-0.3); Eosinophils Percent Auto 1.3 % (0-4.4); Hematocrit 30.6 % (42.0-52.0); Hemoglobin 9.9 g/dL (14.0-18.0); Immature Granulocyte Absolute 0.02 K/mm3 (0.00-0.031); Immature Granulocyte Percent A 0.3 % (0-0.5); Lymphocytes Absolute Auto 0.89 K/mm3 (0.9-3.2); Lymphocytes Percent Auto 13.3 % (18.3-44.2); Mean Corpuscular HGB Conc 32.4 g/dl (32-36); Mean Corpuscular Hemoglobin 35.6 pg (26-34); Mean Corpuscular Volume 110.1 fl (80-100); Mean Platelet Volume 10.6 fl (7.4-10.4); Monocytes Absolute Auto 0.6 K/mm3 (0.1-0.6); Monocytes Percent Auto 8.8 % (2.6-8.5); Neutrophils Absolute Auto 5.1 K/mm3 (1.3-6.7); Neutrophils Percent Auto 75.9 % (45.5-73.1); Nucleated Red Blood Cells Perc 0.3 % (0.0-0.2); Platelet Count Result 104 k/mm3 (150-375); Red Blood Count 2.78 M/mm3 (4.6-6.20); Red Cell Distribution Width 14.8 % (11.5-14.5); White Blood Count 6.7 K/mm3 (4.5-10.0)
[2020-04-18 16:16] LABS: INR 1.1
[2020-04-18] MEDS: INSULIN HUMAN REGULAR (*BKC) 100 UNITS/ML 10 UNITS IV PUSH (16:16)
[2020-04-18] MEDS: DEXTROSE 50% 25 GM/50 ML SYRINGE IV PUSH ×2 (16:16→19:05)
[2020-04-18] MEDS: SODIUM POLYSTYRENE SULFONONATE 15 GM/60 ML BTL PO (16:16)
[2020-04-18 16:17] LABS: Partial Thromboplastin Time 31.9 SECONDS (22.3-36.8)
[2020-04-18 16:21] LABS: Anion Gap 21.9 mmol/L (7-16); Blood Urea Nitrogen 51 mg/dL (9-20); Calcium 8.1 mg/dL (8.4-10.2); Carbon Dioxide 22 mmol/L (22-30); Chloride 98 mmol/L (98-107); Glucose 79 mg/dL (75-110); Potassium 7.9 mmol/L (3.4-5.0); Sodium 134 mmol/L (137-145)
[2020-04-18 16:27] LABS: Estimated CRCL calculation 5 ml/min; Estimated Glomerular Filt Rate 4
[2020-04-18 16:30] LABS: NT Pro B Type Natriuretic Pept 6040 PG/ML (5-100); Troponin I < 0.012 ng/mL (0.000-0.034)
[2020-04-18] MEDS: SODIUM BICARBONATE 8.4% 50 MEQ/50 ML VIAL IV PUSH (16:37)
[2020-04-18] MEDS: CALCIUM GLUC 1,000 MG/NS 50 ML 1,000 MG/50 ML BAG 100 MG IVPB (16:38)
[2020-04-18 16:50] LABS: Glucose Point of Care 117 (65-105)
--- NOTE | 2020-04-18 16:50 | PC.NURSE ---
Blood Glucose was 117 at 16:50
--- NOTE | 2020-04-18 17:05 | PM.CNNEP ---
Assessment and Plan Assessment and plan (1) ESRD on dialysis: Code(s): N18.6 - End stage renal disease; Z99.2 - Dependence on renal dialysis Status: Acute Assessment and Plan: Mark has end-stage kidney disease. He gets dialysis 3 times a week. He drives all the way to [facility] to do his dialysis because he likes his grab hooker. Unfortunately the sometimes this becomes a challenge and he misses treatments. This time he did on a day where he had had a lot of food with high potassium content and so he has become weak with his hyperkalemia. The patient is not grossly fluid overloaded. His chest x-ray does not show much fluid and his lungs are fairly clear. He has received therapy for his hyperkalemia and we will watch him closely. There are emergencies all over the area and so we cannot get to him right away but will get him as soon as possible. In the meantime we will repeat a potassium and make sure that it comes down if we are unable to dialyze him before it his back. Discussed at length with dialysis nurses and also with Dr. Avilez. (2) Hyperkalemia: Code(s): E87.5 - Hyperkalemia Status: Acute Assessment and Plan: Potassium is very high. Not much change on the EKG luckily He received Kayexalate, insulin, glucose, and calcium. We will repeat the potassium in 4 hours. (3) Edema of left upper arm: Code(s): R60.0 - Localized edema Status: Acute Assessment and Plan: The patient has edema of the left arm. This is where his fistula is. Unfortunately we do not have anybody at this hospital who can examine a fistula radiologically. He will have to go to an interventional center after discharge. (4) Anemia of chronic disease: Code(s): D63.8 - Anemia in other chronic diseases classified elsewhere Status: Acute Assessment and Plan: His hemoglobin level is mildly low just below 10. We will give him Epogen once he gets on dialysis. History of Present Illness Reason for Consult Consult date: 04/18/20 Chief Complaint Chief complaint: SOB History of Present Illness Narrative: Mark is a very pleasant 54-year-old gentleman who has multiple medical problems including end-stage renal disease on dialysis 3 times per week, anemia, renal osteodystrophy, HIV, chronic thrombocytopenia, combined systolic and diastolic heart failure, hyperlipidemia, pulmonary hypertension, restless legs, TIA, diabetes. The patient went to dialysis on Wednesday. He had gained 7L and they took off 5 so he left 2 kilos above his dry weight. Yesterday the patient was unable to get to dialysis. Today the patient became weak. He was mildly short of breath. He felt like his potassium was high so he came to the emergency room. He was evaluated in the emergency room and found to have a potassium of over 7. He received insulin, glucose, calcium, and Kayexalate. The patient feels okay lying in bed right now but is generally weak. He denies any nausea vomiting. He has no black stools or bloody stools. He says that he tries to watch his diet but often has high potassium. He says he does not need very much because he is trying not to let his potassium go up. Consequently has lost some weight. He has hypertension. His blood pressure is up and down. It is higher when he has lots of fluid on. His blood pressure is pretty good right now. He has had diabetes for a long period of time. His sugars do pretty well. His A1c was good last time which was checked here. he has systolic and diastolic congestive heart failure. He does gain a lot of weight between treatments. We have discussed how large weight gains can lead to cardiomyopathy. Review of Systems Constitutional: Constitutional: Reports no additional constitutional complaints Eyes: Eyes: Reports no additional eye complaints ENT: Reports system reviewed and no additional complaints, exce
--- NOTE | 2020-04-18 17:05 | ED.SOB ---
HPI - SOB/Dyspnea General Chief Complaint: Shortness of Breath/Dyspnea Stated Complaint: SOB Time Seen by Provider: 04/18/20 15:51 History of Present Illness HPI Narrative: Patient is a 54-year-old male with history of end-stage renal disease who presents to the ER with concerns for volume overload. He is short of breath and feeling weak like he does when his potassium is elevated. He dialyzes Wednesday, he missed his dialysis yesterday. He is unable to get in for dialysis anywhere else. No chest pain or chest pressure. He has placed himself on supplemental oxygen is currently wearing 3 L. Reports he wears oxygen intermittently at home as needed. Denies fevers or chills or sweats. No runny nose/sore throat/productive cough. Related Data Home Medications Medication Instructions Recorded Confirmed Biktarvy 1 tablet PO HS 12/20/19 03/24/20 Pifeltro 100 mg PO DAILY 12/20/19 03/24/20 amitriptyline 50 mg PO HS 12/20/19 03/24/20 diltiazem HCl 300 mg PO HS 12/20/19 03/24/20 famotidine 20 mg PO DAILY 12/20/19 03/24/20 metoprolol tartrate 75 mg PO Q12H 12/20/19 03/24/20 valacyclovir 500 mg PO DAILY 12/20/19 03/24/20 valsartan 80 mg PO HS 12/20/19 03/24/20 Dallam Caps 1 cap PO DAILY 12/21/19 03/24/20 hydrocodone-acetaminophen 1 tablet PO Q6H PRN 12/21/19 03/24/20 sevelamer carbonate 1,600 mg PO TID 12/21/19 03/24/20 terazosin 5 mg PO HS 03/05/20 03/24/20 fluconazole 100 mg PO DAILY 03/24/20 03/24/20 Allergies Allergy/AdvReac Type Severity Reaction Status Date / Time Fish Containing Products Allergy Severe Anaphylaxis Verified 03/18/20 15:31 Review of Systems Review of Systems: All systems reviewed & are unremarkable except as noted in HPI and below Constitutional: Constitutional: Denies chills, Denies fever(s) and Reports weakness ENT: Denies nasal congestion and Denies sore throat Cardiovascular: Cardiovascular: Denies chest pain and Denies rapid heart rate Respiratory: Respiratory: Denies cough, Reports dyspnea and Denies wheezing Gastrointestinal: Gastrointestinal: Denies abdominal pain, Reports nausea and Denies vomiting PMFSH Past Medical History Medical History Anemia of chronic disease Asthma Cardiac arrest With successful resuscitation at [facility]. Chronic idiopathic thrombocytopenia Chronic pain Combined systolic and diastolic congestive heart failure Echocardiogram in January 2019 showed moderate concentric left ventricular hypertrophy, mildly enlarged ventricle cavity, mild to moderate global left ventricular systolic dysfunction, pseudo normal diastolic dysfunction grade 2, and ejection fraction of 40 to 45%. Moderate mitral valve regurgitation, mild aortic valve regurgitation, and severe pulmonary hypertension also noted. Depression with anxiety End-stage renal disease on hemodialysis Dialysis Wednesday, Wednesday, Wednesday in [place]. Patient has been on hemodialysis since 2016. Human immunodeficiency virus On antiretrovirals. Hyperlipidemia Hypertension Insomnia Normal nuclear stress test (~04/2019) Peripheral neuropathy Pulmonary hypertension Echocardiogram in January 2019 showed severe pulmonary hypertension with a peak RVSP of 65 to 70 millimeters of mercury. Rectal cancer (~2018) Status post resection. Restless leg syndrome Small bowel obstruction due to adhesions Resolved with conservative management. Transient ischemic attack (~04/2018) Type 2 diabetes mellitus Diet-controlled for many years. Surgical History Surgical History History of colonoscopy Complicated by colonic rupture requiring surgical repair. History of detached retina repair (~2007) History of left hip replacement (~2009) History of rectal surgery (~2018) Resection of rectal cancer. Surgically constructed arteriovenous fistula Left upper extremity. Family History Family History (Revie
[2020-04-18 18:55] LABS: Anion Gap 19.3 mmol/L (7-16); Blood Urea Nitrogen 54 mg/dL (9-20); Calcium 8.4 mg/dL (8.4-10.2); Carbon Dioxide 23 mmol/L (22-30); Chloride 100 mmol/L (98-107); Glucose 45 mg/dL (75-110); Potassium 5.3 mmol/L (3.4-5.0); Sodium 137 mmol/L (137-145)
[2020-04-18 18:59] LABS: Estimated CRCL calculation 5 ml/min; Estimated Glomerular Filt Rate 4
[2020-04-18 19:02] LABS: Glucose Point of Care 57 (65-105)
--- NOTE | 2020-04-18 19:09 | PC.NURSE ---
Spoke with dialysis nurse who states he will be coming soon to take patient to dialysis treatment room
[2020-04-18 20:38] LABS: Hepatitis B Surface Antigen Negative (Negative)
--- NOTE | 2020-04-18 20:51 | PC.NURSE ---
1938 Received report from MELISSA Bagley
[2020-04-18] MEDS: EPOETIN ALFA-EPBX 10,000 UNITS/ML VIAL 10000 UNITS IV PUSH (21:39)
--- NOTE | 2020-04-18 22:00 | PM.IMHP ---
H&P: HPI History of Present Illness Date/Time: 04/18/20 22:00 Chief complaint: Shortness of breath. Narrative: Mark Rivera is a 54-year-old male with end-stage renal disease on hemodialysis, congestive heart failure, hypertension, diabetes, anemia, chronic disease, HIV, and several other comorbidities who presented to the emergency department earlier this afternoon with complaints of shortness of breath. He gets dialysis Wednesday, Wednesday, and Wednesday in [place] but admits that he missed yesterday's session. He goes on to say that he did not get down to dry weight (66 kg) on Wednesday and reports a weight of 69.1 kilograms post dialysis. In any regard, this morning he began feeling increasingly short of breath, to the point where he had difficulties going up and down steps to let his dog out to the bathroom. He also reports that his legs have felt weak and I just knew my potassium was probably high. At the time my evaluation, he has completed dialysis and feels back in his usual state of health. He denies fever, chills, sweats, cold and flu symptoms, chest pain, pleuritic pain, current shortness of breath, nausea, vomiting, diarrhea, and dysuria (he still urinates in small amounts). Review of Systems Review of Systems: Narrative: Twelve systems were reviewed with pertinent positives and negatives as per HPI. Patient is on the transplant list at [facility], received a call 3 weeks ago that they had a potential kidney. He was in the hospital overnight, but unfortunately the kidney was not compatible. He is still hopeful that soon he will be able to have a transplant. He has had swelling of the left upper extremity, which has been present for several months. With his recent hospitalization he was found to have an occluded subclavian vein, at the side of a clavicular fracture, with multiple draining collaterals. Except as documented, all other systems were reviewed and are negative. [facility] Past Medical History Medical History Anemia of chronic disease Asthma Cardiac arrest With successful resuscitation at [facility]. Chronic idiopathic thrombocytopenia Chronic pain Combined systolic and diastolic congestive heart failure Echocardiogram in January 2019 showed moderate concentric left ventricular hypertrophy, mildly enlarged ventricle cavity, mild to moderate global left ventricular systolic dysfunction, pseudo normal diastolic dysfunction grade 2, and ejection fraction of 40 to 45%. Moderate mitral valve regurgitation, mild aortic valve regurgitation, and severe pulmonary hypertension also noted. Depression with anxiety End-stage renal disease on hemodialysis Dialysis Wednesday, Wednesday, Wednesday in [place]. Patient has been on hemodialysis since 2016. Human immunodeficiency virus On antiretrovirals. Hyperlipidemia Hypertension Insomnia Normal nuclear stress test (~04/2019) Peripheral neuropathy Pulmonary hypertension Echocardiogram in January 2019 showed severe pulmonary hypertension with a peak RVSP of 65 to 70 millimeters of mercury. Rectal cancer (~2017) Status post resection. Restless leg syndrome Small bowel obstruction due to adhesions Resolved with conservative management. Transient ischemic attack (~04/2018) Type 2 diabetes mellitus Diet-controlled for many years. Surgical History Surgical History History of colonoscopy Complicated by colonic rupture requiring surgical repair. History of detached retina repair (~2007) History of left hip replacement (~2009) History of rectal surgery (~2017) Resection of rectal cancer. Surgically constructed arteriovenous fistula Left upper extremity. Family History Family History Father Dementia Mother Dementia CHF (congestive heart failure) Social History Social Histor
--- NOTE | 2020-04-18 23:27 | PC.NURSE ---
2320 arrived to 209 from dialysis room
--- NOTE | 2020-04-18 23:28 | ADMGEN ---
This patient, Mark Rivera, was admitted to IMU Room 209-01. Patient/family oriented to hospital policies and general routines including ID bracelet, bed and alarms, visiting hours, pain management, procedures, bathroom and other care routines, personal items, smoking policy, room service/diet, and visiting hours. Valuables list has been completed. Information on how to activate the Rapid Response Team has been discussed. Patient/Family are encouraged to report perceived risks to care and to ask questions if they do not understand what they are told or what they should do.
[2020-04-19] VITALS (23 sets, daily range): BP systolic 141–184; BP diastolic 57–109; PULSE 73–102; RESP 18–20; TEMP 36–37.3; O2SAT 96–99
--- NOTE | 2020-04-19 02:08 | PC.NURSE ---
8-6-20 [id number] report received from dialysis nurse MELISSA Meehan.
[2020-04-19] MEDS: MORPHINE SULFATE 4 MG/ML INJ IV PUSH ×2 (04:13→10:49)
[2020-04-19 05:06] LABS: Albumin Level 4.5 g/dL (3.5-5.1); Anion Gap 17.2 mmol/L (7-16); Blood Urea Nitrogen 33 mg/dL (9-20); Calcium 8.4 mg/dL (8.4-10.2); Carbon Dioxide 29 mmol/L (22-30); Chloride 94 mmol/L (98-107); Estimated CRCL calculation 7 ml/min; Estimated Glomerular Filt Rate 7; Glucose 108 mg/dL (75-110); Magnesium 2.1 mg/dL (1.6-2.3); Phosphorus 6.1 mg/dL (2.5-4.5); Potassium 4.2 mmol/L (3.4-5.0); Sodium 136 mmol/L (137-145)
--- NOTE | 2020-04-19 12:13 | PM.DS ---
DS: Admitting Diagnosis Admitting Diagnosis Admitting Diagnosis: End stage renal disease DS: Discharge Diagnosis Discharge Diagnosis (1) Volume overload: Qualifiers: Hypervolemia type: unspecified Qualified Code(s): E87.70 - Fluid overload, unspecified Code(s): E87.70 - Fluid overload, unspecified Status: Acute Assessment and Plan: Secondary to missed dialysis. Had HD 04/18 and again 04/19. Feeling back to baseline. Encouraged compliance of HD (2) Hyperkalemia: Code(s): E87.5 - Hyperkalemia Status: Acute Assessment and Plan: He received appropriate treatment in the ED Repeat potassium normal. Continue HD to control potassium (3) End-stage renal disease on hemodialysis: Code(s): N18.6 - End stage renal disease; Z99.2 - Dependence on renal dialysis Status: Acute Assessment and Plan: he had HD 04/18 and again 04/19 Case management informed that patient interested in changing HD unit Encouraged compliance with HD (4) Anemia of chronic disease: Code(s): D63.8 - Anemia in other chronic diseases classified elsewhere Status: Acute Assessment and Plan: Hemoglobin 9.9 on admission but stable on review of previous labs. (5) Hypertension: Qualifiers: Hypertension type: essential hypertension Qualified Code(s): I10 - Essential (primary) hypertension Code(s): I10 - Essential (primary) hypertension Status: Chronic Assessment and Plan: Blood pressures was elevated at times but improved after HD (6) HIV (human immunodeficiency virus infection): Code(s): B20 - Human immunodeficiency virus [HIV] disease Status: Chronic Assessment and Plan: Stable; Continue current regimen. DS: Summary Hospital Course Reason for hospitalization: 54yo male with HIV and ESRD here for volume overload after missing HD. Please see H&P for details. Hospital Course: As above Time Spent with Patient Time attestation: Total time spent providing and/or coordinating discharge services:35 minutes Time spent: Greater than 30 minutes Exam Narrative: Exam Narrative: AF 149/85 94 18 96% ra Gen - NARD Chest - CTA bilaterally, nml RR CV - RRR S1/S2 Abd - Soft, NT/ND, Positive BS Ext - 2+ LUE edema. Thrill and bruit in the LUE Psych - Nml mood and affect Skin - Warm and dry DS: Data Data Completed and Pending Labs on day of discharge: Labs from last 24 hours 04/19/20 04/18/20 04/18/20 04:25 19:00 18:30 WBC RBC Hgb Hct MCV MCH MCHC RDW Plt Count MPV Immature Gran % (Auto) Neut % (Auto) Lymph % (Auto) Stan[place] % (Auto) Eos % (Auto) Baso % (Auto) Lymph # (Auto) [place] # (Auto) Eos # (Auto) Baso # (Auto) Abs Immat Gran (auto) Absolute Neuts (auto) Absolute Nucleated RBC Nucleated RBC % PT INR APTT Sodium 136 L Potassium 4.2 Chloride 94 L Carbon Dioxide 29 Anion Gap 17.2 H BUN 33 H D Creatinine 9.90 H Estim Creat Clear Calc 7 Estimated GFR 7 L Glucose 108 POC Capillary Glucose 57 L* Calcium 8.4 Phosphorus 6.1 H Magnesium 2.1 Troponin I NT-Pro-B Natriuret Pep Albumin 4.5 Hep Bs Antigen Negative 04/18/20 04/18/20 04/18/20 18:30 16:48 15:59 WBC RBC Hgb Hct MCV MCH MCHC RDW Plt Count MPV Immature Gran % (Auto) Neut % (Auto) Lymph % (Auto) Stanly % (Auto) Eos % (Auto) Baso % (Auto) Lymph # (Auto) Stanly # (Auto) Eos # (Auto) Baso #
[2020-04-19 15:33] LABS: Hepatitis B Surface Anti Res Positive
--- NOTE | 2020-04-19 16:55 | PM.PNNEP ---
Progress Note: A&P Assessment and Plan (1) ESRD on dialysis: Code(s): N18.6 - End stage renal disease; Z99.2 - Dependence on renal dialysis Status: Acute Assessment and Plan: Mark has end-stage kidney disease. he is on dialysis now. He is going to change dialysis units to 1 closer by so hopefully this will be as much of a problem. (2) Hyperkalemia: Code(s): E87.5 - Hyperkalemia Status: Acute Assessment and Plan: Potassium is Normal today. (3) Edema of left upper arm: Code(s): R60.0 - Localized edema Status: Acute Assessment and Plan: The patient has edema of the left arm. This is where his fistula is. Unfortunately we do not have anybody at this hospital who can examine a fistula radiologically. He will have to go to an interventional center after discharge. (4) Anemia of chronic disease: Code(s): D63.8 - Anemia in other chronic diseases classified elsewhere Status: Acute Assessment and Plan: His hemoglobin level is mildly low just below 10. Getting EPO Subjective Date/time seen: 04/19/20 16:55 Interval history: Mark is feeling better today. He is on dialysis and tolerating it well. He was seen at 4:15 p.m. Review of Systems Cardiovascular: Cardiovascular: Reports no additional cardiovascular complaints Respiratory: Respiratory: Reports no additional respiratory complaints Gastrointestinal: Gastrointestinal: Reports no additional gastrointestinal complaints Genitourinary: Genitourinary: Reports no additional male genitourinary complaints Exam Narrative: Exam Narrative: WDWN in NAD skin no rash head ncat lungs clear cor reg no rub abd BS+ nontender and soft ext no edema. Objective Data Vital Signs Vital Signs: Vital Signs - 24 hr 04/18/20 17:51 04/18/20 19:08 04/18/20 19:52 Temperature 36.6 C Pulse Rate 75 82 75 Respiratory Rate 20 25 H Blood Pressure 153/94 H 164/100 H 168/92 H Pulse Oximetry 100 97 04/18/20 20:00 04/18/20 20:15 04/18/20 20:30 Temperature 36.6 C Pulse Rate 80 70 72 Respiratory Rate 16 Blood Pressure 158/84 H 172/89 H 160/80 H Pulse Oximetry 04/18/20 20:45 04/18/20 21:00 04/18/20 21:15 Temperature Pulse Rate 75 71 71 Respiratory Rate Blood Pressure 170/92 H 161/90 H 169/95 H Pulse Oximetry 04/18/20 21:30 04/18/20 21:45 04/18/20 22:00 Temperature Pulse Rate 75 73 77 Respiratory Rate Blood Pressure 147/80 H 168/103 H 136/85 Pulse Oximetry 04/18/20 22:15 04/18/20 22:30 04/18/20 22:39 Temperature Pulse Rate 78 83 86 Respiratory Rate Blood Pressure 151/97 H 157/100 H 152/90 H Pulse Oximetry 04/18/20 22:50 04/18/20 23:31 04/19/20 00:00 Temperature 36.6 C 36.9 C Pulse Rate 72 91 93 Respiratory Rate 16 20 Blood Pressure 160/97 H 177/95 H Pulse Oximetry 99 04/19/20 02:00 04/19/20 04:00 04/19/20 06:00 Temperature 37.1 C Pulse Rate 90 102 H 90 Respiratory Rate 18 Blood Pressure 154/91 H Pulse Oximetry 97 04/19/20 08:00 04/19/20 10:00 04/19/20 12:00 Temperature 37.3 C 37.2 C Pulse Rate 95 89 98 Respiratory Rate 18 18 Blood Pressure 149/85 H 151/96 H Pulse Oximetry 96 99 04/19/20 14:59 04/19/20 15:15 04/19/20 15:30 Temperature Pulse Rate 95 92 94 Respiratory Rate Blood Pressure 178/109 H 157/84 H 171/99 H Pulse Oximetry 04/19/20 15:45 04/19/20 16:00 04/19/20 16:15 Temperature Pulse Rate 89 90 94 Respiratory Rate Blood Pressure 164/77 H 168/96 H 184/104 H Pulse Oximetry 04/19/20 16:30 04/19/20 16:45 Temperature Pulse Rate 95 73 Respiratory Rate Blood Pressure 151/87 H 141/57 H Pulse Oximetry Intake/Output Intake/Output: Intake & Output 04/16/20 04/17/20 04/18/20 04/19/20 23:59 23:59 23:59 23:59 Intake Total 50 Output Total 3000 Balance -2950 Meds/Results Medications: Active Medications Generic Name Dos
[2020-04-19] MEDS: EPOETIN ALFA-EPBX 10,000 UNITS/ML VIAL 10000 UNITS IV PUSH (17:29)
[2020-04-19 22:58] LABS: SARS-CoV-2 RNA PCR Negative
--- NOTE | 2020-04-23 11:19 | PC.NURSE ---
COVID for placement is negative Hep B antigen is negative Hep B antibody is positive Dr. Hernandez aware and results faxed to Dr. Julio Gabriel.
[2020-04-24 19:55] LABS: Hepatitis B Core Ab Total Reactive (Nonreactive)
--- NOTE | 2020-04-30 15:00 | PC.NURSE ---
Hep B Core is reactive. Results faxed to Dr. Julio Christianson. Dr. Mary benton.
== END 2020-04-19 19:30 | disposition home or self-care (01) ==
LOC: ANHED 17:32 → ANHIMU 19:14
PROVIDERS: Internal Medicine Nephrology; Physician Assistant; Admitting Provider Internal Medicine; Emergency Provider Emergency Medicine; PCP Family Medicine; Visit Provider Internal Medicine
DX: B20 Human immunodeficiency virus [HIV] disease (principal); Z20.828 Contact with and (suspected) exposure to other viral communicable diseases; R06.02 Shortness of breath; N18.6 End stage renal disease; I13.2 Hypertensive heart and chronic kidney disease with heart failure and with stage 5 chronic kidney disease, or end stage renal disease; I50.40 Unspecified combined systolic (congestive) and diastolic (congestive) heart failure; E11.22 Type 2 diabetes mellitus with diabetic chronic kidney disease; E87.5 Hyperkalemia; D63.8 Anemia in other chronic diseases classified elsewhere; E87.70 Fluid overload, unspecified; Z85.048 Personal history of other malignant neoplasm of rectum, rectosigmoid junction, and anus; Z99.2 Dependence on renal dialysis; Z87.891 Personal history of nicotine dependence; Z96.642 Presence of left artificial hip joint; Z79.4 Long term (current) use of insulin
CPT/HCPCS: 36415; 71046; 80048; 80069; 82948; 83735; 83880; 84484; 85025; 85610; 85730; 86704; 86706; 87340; 87635; 93005; 96365; 96375; 96376; 99285; A9270; C9803; G0257; G0378; J0610; J1815; J2270; J7030; Q5106; U0003

== ENCOUNTER 2020-06-10 15:58 | Inpatient (IN) | payer MEDICARE, MEDICAID, SELFPAY ==
--- NOTE | ~2020-06-10 | XR_ITS ---
EXAMINATION: XR chest 1V portable EXAM DATE: 06/12/2020 06:03 INDICATION: Pulmonary edema. TECHNIQUE: Portable AP frontal chest x-ray was obtained. Comparison is made to prior examination from 06/10/2020. FINDINGS: Again some linear left basilar atelectasis or scarring. Mildly prominent interstitial opaci ties throughout both lower lung zones, could be mild pulmonary edema or less likely pneumonia. Cardia c silhouette is enlarged but stable in size compared to prior exam. There is no pneumothorax suspecte d. There are no pleural effusions. There is no significant interval change. IMPRESSION: 1. Cardiomegaly, possible mild pulmonary edema. 2. Left lower lobe linear subsegmental atelectasis. Reviewed, dictated and finalized at location A.
--- NOTE | ~2020-06-10 | CT_ITS ---
EXAMINATION: CT brain wo con DATE: 06/10/2020 23:22 INDICATION: Slurred speech and blurry vision TECHNIQUE: Computed tomography (CT) of the head was performed without intravenous contrast. Sagittal and coronal reconstructions were performed. The mA was adjusted according to patient size. Iterative reconstruction technique was employed. The dose-length product was 681.00 mGy-cm. COMPARISON: head CT dated 12/26/2017 FINDINGS: Unchanged small old lacunar infarcts at the right subinsular white matter and at the head of the left caudate nucleus and adjacent anterior limb of the left internal capsule. No acute intracranial hemor rhage, acute infarction or abnormal extra axial fluid collection. There is mild scattered white matte r hypoattenuation consistent with chronic small vessel ischemic disease. Ventricles are normal and sy mmetric. No mass/mass effect. Again seen are surgical changes at the left globe. The right orbit and mastoid air cells are normal. Mild mucoperiosteal thickening the left maxillary sinus. Intracranial c alcified cerebral atherosclerosis is noted. IMPRESSION: 1. No acute intracranial process. 2. Unchanged small old lacunar infarcts at the right subinsular white matter and at the head of the l eft caudate nucleus and adjacent anterior limb of the left internal capsule. 3. Mild scattered white matter hypoattenuation consistent with chronic small vessel ischemic disease. Reviewed, dictated and finalized at location A. IMPRESSION: 1. No acute intracranial process. 2. Unchanged small old lacunar infarcts at the right subinsular white matter an d at the head of the left caudate nucleus and adjacent anterior limb of the lef t internal capsule. 3. Mild scattered white matter hypoattenuation consistent with chronic small ve ssel ischemic disease.
--- NOTE | ~2020-06-10 | XR_ITS ---
EXAMINATION: XR chest 2V DATE: 06/10/2020 17:23 INDICATION: Shortness of breath TECHNIQUE: frontal and lateral views of the chest were obtained. COMPARISON: Chest radiograph dated 04/18/[address] dated 03/26/2020. FINDINGS: Again seen are increased indistinct interstitial and mild airspace opacities in the bilateral lower l nick zones. Trace amount of fluid along the left major fissure. Mild increased lucency in the upper savage ng zones consistent with mild emphysema better appreciated on prior CT. No pneumothorax. Cardiomegaly . Mild thoracic spondylosis. IMPRESSION: 1. Opacities in the bilateral lower lung zones which could represent pulmonary edema or pneumonia. 2. Cardiomegaly. 3. Mild emphysema. Reviewed, dictated and finalized at location A.
[2020-06-10 16:11] VITALS: BP 265/140; PULSE 108; RESP 17; TEMP 36.6; O2SAT 96
--- NOTE | 2020-06-10 16:11 | ECG_ITS ---
Measurements Intervals Amelia Rate: 106 P: UT: 0 QRS: 13 QRSD: 93 T: 61 QT: 350 QTc: 466 Interpretive Statements SINUS TACHYCARDIA DELAYED PRECORDIAL R/S TRANSITION VOLTAGE CRITERIA FOR LVH PEAKED T WAVES IN ANTERIOR LEADS- CONSIDER HYPERKALEMIA OR ISCHEMIA ABNORMAL ECG Electronically Signed On 06-10-2020 16:35:04 CDT by Wilfrid Mclaughlin D.O.
[2020-06-10 16:25] LABS: Glucose Point of Care 85 (65-105)
[2020-06-10 16:30] LABS: Basophils Absolute Auto 0.1 K/mm3 (0.0-0.1); Basophils Percent Auto 0.6 % (0.2-1.2); Eosinophils Absolute Auto 0.2 K/mm3 (0-0.3); Eosinophils Percent Auto 2.2 % (0-4.4); Hematocrit 27.8 % (42.0-52.0); Hemoglobin 8.9 g/dL (14.0-18.0); Immature Granulocyte Absolute 0.03 K/mm3 (0.00-0.031); Immature Granulocyte Percent A 0.4 % (0-0.5); Lymphocytes Absolute Auto 0.59 K/mm3 (0.9-3.2); Lymphocytes Percent Auto 7.5 % (18.3-44.2); Mean Corpuscular Hemoglobin 33.8 pg (26-34); Mean Corpuscular Volume 105.7 fl (80-100); Mean Platelet Volume 9.3 fl (7.4-10.4); Monocytes Absolute Auto 0.6 K/mm3 (0.1-0.6); Neutrophils Absolute Auto 6.5 K/mm3 (1.3-6.7); Neutrophils Percent Auto 82.3 % (45.5-73.1); Platelet Count Result 143 k/mm3 (150-375); Red Blood Count 2.63 M/mm3 (4.6-6.20); Red Cell Distribution Width 15.3 % (11.5-14.5); White Blood Count 7.9 K/mm3 (4.5-10.0)
[2020-06-10 17:04] LABS: Anion Gap 16 mmol/L (8-16); Blood Urea Nitrogen 55 mg/dL (9-20); Calcium 8.7 mg/dL (8.4-10.2); Carbon Dioxide 25 mmol/L (22-30); Chloride 98 mmol/L (98-107); Estimated CRCL calculation 5 ml/min; Estimated Glomerular Filt Rate 4; Glucose 90 mg/dL (75-110); Sodium 139 mmol/L (137-145)
--- NOTE | 2020-06-10 21:16 | ED.SOB ---
HPI - SOB/Dyspnea General Chief Complaint: Shortness of Breath/Dyspnea Stated Complaint: sob/?potassium prob Time Seen by Provider: 06/10/20 21:15 Source: patient Mode of arrival: ambulatory Limitations: no limitations History of Present Illness HPI Narrative: 55 years old -T[place] male presents with increased shortness of breath, blurry vision started yesterday. Patient did not go to his dialysis today, patient did not take any medications at home today. Patient denies any fever, chills, nausea, vomiting, chest pain or abdominal pain. Related Data Home Medications Medication Instructions Recorded Confirmed Biktarvy 1 tablet PO DAILY 12/20/19 04/19/20 Pifeltro 100 mg PO DAILY 12/20/19 04/19/20 amitriptyline 50 mg PO HS 12/20/19 04/19/20 diltiazem HCl 300 mg PO HS 12/20/19 04/19/20 famotidine 20 mg PO DAILY 12/20/19 04/19/20 metoprolol tartrate 75 mg PO HS 12/20/19 04/19/20 valacyclovir 500 mg PO DAILY 12/20/19 04/19/20 valsartan 80 mg PO HS 12/20/19 04/19/20 Valdez Caps 1 cap PO DAILY 12/21/19 04/19/20 hydrocodone-acetaminophen 1 tablet PO Q6H PRN 12/21/19 04/19/20 sevelamer carbonate 1,600 mg PO TID 12/21/19 04/19/20 terazosin 5 mg PO HS 03/05/20 04/19/20 fluconazole 100 mg PO DAILY 03/24/20 04/19/20 Allergies Allergy/AdvReac Type Severity Reaction Status Date / Time Fish Containing Products Allergy Severe Anaphylaxis Verified 06/10/20 23:02 Review of Systems Review of Systems: Narrative: CONSTITUTIONAL: Denies fever, chills, or sweats. EYES: Denies visual changes, redness, or discharge. ENT: Denies rhinorrhea, congestion, sore throat, or otalgia. CARDIOVASCULAR: Denies chest pain, palpitations, or edema. RESPIRATORY: Denies cough or dyspnea. GASTROINTESTINAL: Denies abdominal pain, nausea, vomiting, or diarrhea. GENITOURINARY: Denies dysuria or hematuria. SKIN: Denies rash or itching. MUSCULOSKELETAL: Denies back pain, joint pain, or myalgia. NEUROLOGIC: Denies headache, numbness, or weakness. PSYCHIATRIC: Denies anxiety or depression. [facility] Past Medical History Medical History Anemia of chronic disease Asthma Cardiac arrest With successful resuscitation at [facility]. Chronic idiopathic thrombocytopenia Chronic pain Combined systolic and diastolic congestive heart failure Echocardiogram in January 2019 showed moderate concentric left ventricular hypertrophy, mildly enlarged ventricle cavity, mild to moderate global left ventricular systolic dysfunction, pseudo normal diastolic dysfunction grade 2, and ejection fraction of 40 to 45%. Moderate mitral valve regurgitation, mild aortic valve regurgitation, and severe pulmonary hypertension also noted. Depression with anxiety End-stage renal disease on hemodialysis Dialysis Wednesday, Wednesday, Wednesday in [place]. Patient has been on hemodialysis since 2016. Human immunodeficiency virus On antiretrovirals. Hyperlipidemia Hypertension Insomnia Normal nuclear stress test (~04/2019) Peripheral neuropathy Pulmonary hypertension Echocardiogram in January 2019 showed severe pulmonary hypertension with a peak RVSP of 65 to 70 millimeters of mercury. Rectal cancer (~2017) Status post resection. Restless leg syndrome Small bowel obstruction due to adhesions Resolved with conservative management. Transient ischemic attack (~04/2018) Type 2 diabetes mellitus Diet-controlled for many years. Surgical History Surgical History History of colonoscopy Complicated by colonic rupture requiring surgical repair. History of detached retina repair (~2007) History of left hip replacement (~2009) History of rectal surgery (~2018) Resection of rectal cancer. Surgically constructed arteriovenous fistula Left upper extremity. Family History Family History Father Dementia Mother Iris
[2020-06-10 22:55] VITALS: PULSE 99
[2020-06-10] MEDS: FUROSEMIDE INJ 40 MG/4 ML VIAL IV PUSH (22:55)
[2020-06-10] MEDS: METOPROLOL TARTRATE INJ 5 MG/5 ML VIAL IV PUSH (22:55)
[2020-06-10] MEDS: TERAZOSIN HCL 5 MG CAPSULE PO (22:55)
[2020-06-10 23:00] VITALS: BP 214/103; PULSE 94; RESP 33; O2SAT 94
[2020-06-10] MEDS: hydrALAZINE HCL 20 MG/ML VIAL 10 MG IV PUSH (23:57)
[2020-06-10 23:58] VITALS: BP 198/99; PULSE 88; RESP 28; O2SAT 88
[2020-06-10 23:59] VITALS: O2SAT 93
[2020-06-11] VITALS (39 sets, daily range): BP systolic 128–240; BP diastolic 55–108; PULSE 72–105; RESP 14–26; TEMP 35.9–37.1; O2SAT 92–100
--- NOTE | 2020-06-11 00:05 | PM.IMHP ---
H&P: HPI History of Present Illness Date/Time: 06/11/20 00:05 Chief complaint: CHF, uncontrolled hypertension, noncompliance Narrative: This is a 54-year-old male with end-stage renal disease on hemodialysis, congestive heart failure, hypertension, diabetes, anemia, chronic disease, HIV, and several other comorbidities who presented to the emergency department earlier this afternoon with complaints of slurred speech, increased weakness, blurry vision, and feeling as if he was drunk for the past 2 days. The patient relates that he did not go to dialysis today. Tonight in the emergency room he is complaining of increased shortness of breath although he denies any fevers, chills, cough, chest pain, palpitations, abdominal pain, dysuria, hematuria, nausea, vomiting, diarrhea, or rectal bleeding. The patient was found to have severely elevated blood pressure in the ER and he admits to me that he did not take his oral antihypertensives today. Routine labs were obtained which were virtually unremarkable and chest x-ray demonstrated bilateral mild pulmonary edema. Patient has no other specific complaints at this time. ER provider administer the patient's home medications to him although he continues to have severely elevated blood pressure. Commercial Loan Specialist, Dr. Mahmood has been consulted and the patient has been admitted to the ICU for IV continuous infusion of antihypertensives for his resistant hypertension. Review of Systems Review of Systems: All systems reviewed & are unremarkable except as noted in HPI and below PMFSH Past Medical History Medical History Anemia of chronic disease Asthma Cardiac arrest With successful resuscitation at [facility]. Chronic idiopathic thrombocytopenia Chronic pain Combined systolic and diastolic congestive heart failure Echocardiogram in January 2019 showed moderate concentric left ventricular hypertrophy, mildly enlarged ventricle cavity, mild to moderate global left ventricular systolic dysfunction, pseudo normal diastolic dysfunction grade 2, and ejection fraction of 40 to 45%. Moderate mitral valve regurgitation, mild aortic valve regurgitation, and severe pulmonary hypertension also noted. Depression with anxiety End-stage renal disease on hemodialysis Dialysis Wednesday, Wednesday, Wednesday in [place]. Patient has been on hemodialysis since 2016. Human immunodeficiency virus On antiretrovirals. Hyperlipidemia Hypertension Insomnia Normal nuclear stress test (~04/2019) Peripheral neuropathy Pulmonary hypertension Echocardiogram in January 2019 showed severe pulmonary hypertension with a peak RVSP of 65 to 70 millimeters of mercury. Rectal cancer (~2018) Status post resection. Restless leg syndrome Small bowel obstruction due to adhesions Resolved with conservative management. Transient ischemic attack (~04/2018) Type 2 diabetes mellitus Diet-controlled for many years. Surgical History Surgical History History of colonoscopy Complicated by colonic rupture requiring surgical repair. History of detached retina repair (~2007) History of left hip replacement (~2009) History of rectal surgery (~2017) Resection of rectal cancer. Surgically constructed arteriovenous fistula Left upper extremity. Family History Family History Father Dementia Mother Dementia CHF (congestive heart failure) Social History Social History Social History: The patient lives in his own home in [place] with his dog. He never and has no children. He is not employed and is disability. He smoked socially for few years and quit in his 30s. Occasional marijuana use. He drinks alcohol socially and in moderation. He designates his friend Brandon Sheffield and Althea
--- NOTE | 2020-06-11 02:09 | PC.NURSE ---
This patient, Mark Rivera, was admitted to Intensive Care Unit-11. Patient/family oriented to hospital policies and general routines including ID bracelet, bed and alarms, visiting hours, pain management, procedures, bathroom and other care routines, personal items, smoking policy, room service/diet, and visiting hours. Valuables list has been completed. Information on how to activate the Rapid Response Team has been discussed. Patient/Family are encouraged to report perceived risks to care and to ask questions if they do not understand what they are told or what they should do.
[2020-06-11] MEDS: hydrALAZINE HCL 20 MG/ML VIAL IV PUSH (03:09)
[2020-06-11] MEDS: niCARdipine 20 MG/200 ML 20 MG/200 ML BAG 50 MG IV CONT ×2 (04:33→10:56)
[2020-06-11] MEDS: niCARdipine 20 MG/200 ML 20 MG/200 ML BAG 90 MG IV CONT (05:42)
[2020-06-11] MEDS: niCARdipine 20 MG/200 ML 20 MG/200 ML BAG 75 MG IV CONT (07:27)
[2020-06-11 08:38] LABS: Glucose Point of Care 107 (65-105)
[2020-06-11] MEDS: VITAMIN B CMPLX/VIT C/FOLIC AC 1 CAPSULE 1 CAP PO (08:40)
[2020-06-11] MEDS: FAMOTIDINE 20 MG TABLET PO (08:40)
[2020-06-11] MEDS: valACYclovir HCL 500 MG TABLET PO (08:40)
[2020-06-11] MEDS: SEVELAMER CARBONATE 800 MG TABLET 1600 MG PO ×2 (08:40→16:01)
[2020-06-11] MEDS: FLUCONAZOLE 100 MG TABLET PO (08:40)
[2020-06-11] MEDS: VALSARTAN 80 MG TABLET PO (08:41)
--- NOTE | 2020-06-11 11:23 | WPDCNINT ---
Assessment and Plan Assessment and plan (1) Hypertensive urgency: Code(s): I16.0 - Hypertensive urgency Status: Acute Assessment and Plan: patient presented with blurring of vision, weakness, , slurred speech, blood pressures in the ER was 265/140. - A CT scan of the brain with no acute intracranial process, chronic small vessel ischemic disease - patient started on nicardipine infusion, will wean as tolerated to maintain systolic blood pressures between 140-160 mmHg - patient has been started on valsartan, diltiazem, metoprolol, terazosin which are his home medications (2) Acute pulmonary edema: Code(s): J81.0 - Acute pulmonary edema Status: Acute Assessment and Plan: - chest x-ray shows pulmonary edema likely secondary to hypertensive urgency - patient to get dialyzed today - currently on 2 L nasal cannula with good O2 sats (3) CHF (congestive heart failure): Qualifiers: Heart failure chronicity: acute on chronic Heart failure type: unspecified Qualified Code(s): I50.9 - Heart failure, unspecified Code(s): I50.9 - Heart failure, unspecified Status: Acute Assessment and Plan: echocardiogram on 03/05/2020 showed EF of 50-55%, grade 1 diastolic dysfunction, no pulmonary hypertension, compared to the echocardiogram obtained in January 2019 there has been some improvement of the left ventricular function and pulmonary hypertension. - Will continue home meds (4) Non-compliance: Code(s): Z91.19 - Patient's noncompliance with other medical treatment and regimen Status: Chronic Assessment and Plan: there is in essence of noncompliance and medical treatment with medications and or going to dialysis. - discussed with care coordination, he has to go to [place] for his dialysis, sometimes he does not have a ride to go [place]. - Care coordination is going to evaluate and try to set him up with a dialysis center in [place], [place] (5) ESRD on dialysis: Code(s): N18.6 - End stage renal disease; Z99.2 - Dependence on renal dialysis Status: Chronic Assessment and Plan: nephrology following the patient, will be dialyzed today - electrolytes are within normal limits Additional Plan discussed with patient updated with his condition and plan of care. I answered all questions code status: Full code critical care time spent: 41 minutes Due to a high probability of clinically significant, life threatening deterioration, the patient required my highest level of preparedness to intervene emergently and I personally spent this critical care time directly and personally managing the patient. This critical care time included obtaining a history; examining the patient; pulse oximetry; ordering and review of studies; arranging urgent treatment with development of a management plan; evaluation of patient's response to treatment; frequent reassessment; and discussions with other providers. It was exclusive of separately billable procedures and treating other patients and teaching time. Please see Assessment and Plan section and the rest of the note for further information on patient assessment and treatment Environmental Project Manager Consult Note Consult date: 06/11/20 Time Seen: 07:09 Reason for consult: hypertensive urgency, ESRD on dialysis, missed dialysis, pulmonary edema CHF exacerbation HPI: Mark De Santiago is a 55 year old male with past medical history of end-stage renal disease on dialysis, Wednesday, Wednesday, Wednesday, patient is on a transplant list patient also has a history of cardiac arrest, anemia of chronic disease, combined systolic and diastolic dysfunction EF of 40-45% and grade 2 diastolic dysfunction, severe pulmonary hypertension, moderate mitral valve regurgitation, depression, anxiety, HIV, hyperlipidemia, essential hypertension, peripheral neuropathy, small-bowel obstruction due to adhesions, TIA, type 2 diabetes presented
[2020-06-11 11:31] LABS: Glucose Point of Care 111 (65-105)
--- NOTE | 2020-06-11 12:37 | PC.NURSE ---
1130-PATIENT GETTING HEMODIALYSIS.
[2020-06-11] MEDS: EPOETIN ALFA-EPBX 10,000 UNITS/ML VIAL 10000 UNITS IV PUSH (13:13)
[2020-06-11 16:03] LABS: Hepatitis B Surface Antigen Negative (Negative)
[2020-06-11] MEDS: HYDROcodone/acetaminophen (*CRX) 10-325 MG TABLET 1 TAB PO ×2 (16:04→22:05)
[2020-06-11 16:26] LABS: Glucose Point of Care 92 (65-105)
[2020-06-11] MEDS: hydrALAZINE HCL 20 MG/ML VIAL 10 MG IV PUSH ×2 (16:50→21:03)
--- NOTE | 2020-06-11 17:01 | PM.CNNEP ---
Assessment and Plan Assessment and plan (1) End stage renal disease: Code(s): N18.6 - End stage renal disease Status: Chronic Assessment and Plan: HD today and plan HD tomorrow to get back on M/W/F dialysis schedule follow electrolytes, volume status, and clearance (2) Hypertensive urgency: Code(s): I16.0 - Hypertensive urgency Status: Acute Assessment and Plan: BP doing better at this time resumed on home medications follow trend of hemodynamics (3) Acute pulmonary edema: Code(s): J81.0 - Acute pulmonary edema Status: Acute Assessment and Plan: resolving with dialytic intervention follow respiratory status wean oxygen as tolerated (4) Non-compliance: Code(s): Z91.19 - Patient's noncompliance with other medical treatment and regimen Status: Chronic Assessment and Plan: ongoing issue/problems discussed with case management Will continue to follow. History of Present Illness Reason for Consult Consult date: 06/12/20 Reason for consult: end stage renal disease Chief Complaint Chief complaint: CHF, uncontrolled hypertension, noncompliance History of Present Illness Narrative: The patient is 54-year-old male with a past medical history as outlined who presented to the emergency department with complaints of generalized weakness. It seems as is his weakness seem to start about two days ago and was subsequently followed by slurred speech, blurry vision, and a sensation that he was drunk/intoxicated. Due to these symptoms, he did not go to his dialysis treatment scheduled yesterday. He denied any other systemic symptoms with regard to fevers, chills, cough, chest pain, palpitations, abdominal pain, dysuria, hematuria, nausea, vomiting, diarrhea, or melena. However, due to the persistence of the symptoms, he came to the ER yesterday evening for further evaluation. Workup and evaluation in the emergency room demonstrated the patient be severely hypertensive with systolic BP is greater than 200. He admitted that he did not take his oral hypertensive medications today due the a for mentioned symptoms. Routine blood tests were done that were consistent with his known history of end-stage renal disease without any critical electrolyte abnormalities but his chest x-ray did demonstrate bilateral mild pulmonary edema. It was felt that his above symptoms were secondary to his hypertension and he was started on IV medications as well as subsequently and IV continuous drip to maintain his blood pressure with subsequent admission to the intensive care unit. Since admission to the ICU, his blood pressure has been doing better and he received hemodialysis earlier today with improvement in his overall fluid status as well as some improvement in his blood pressure as well. No other acute issues or events overnight to report and he otherwise feels to be doing significantly better Renal consultation was requested due to his end-stage renal disease. The patient is well known to myself as been admitted multiple times here to [facility] secondary to noncompliance with his outpatient hemodialysis treatments resulting in a various issues ranging from overt pulmonary edema with hypoxic respiratory failure as well as severe hyperkalemia. The issue of his compliance has been discussed with him multiple times on multiple hospitalizations and I believe there was a plan at one point time to try to arrange for a dialysis unit closer to his residence but I do not believe that occurred. In any case, he received dialysis earlier today and he is scheduled to receive dialysis again tomorrow to get him back on his Wednesday, Wednesday, Wednesday dialysis schedule. As already mentioned, he appears to be doing better at this time. [facility] Past Medical History Medical History Anemia of chronic disease Asthma Card
[2020-06-11 20:25] LABS: Glucose Point of Care 170 (65-105)
[2020-06-11] MEDS: TERAZOSIN HCL 5 MG CAPSULE PO (21:00)
[2020-06-11] MEDS: AMITRIPTYLINE HCL 25 MG TABLET 50 MG PO (21:00)
[2020-06-11] MEDS: METOPROLOL TARTRATE 25 MG TABLET 75 MG PO (21:02)
[2020-06-11] MEDS: CYCLOBENZAPRINE HCL 5 MG TABLET PO (22:05)
[2020-06-12] VITALS (11 sets, daily range): BP systolic 158–186; BP diastolic 69–98; PULSE 69–87; RESP 16–18; TEMP 35.9–36.7; O2SAT 95–99
[2020-06-12] MEDS: hydrALAZINE HCL 20 MG/ML VIAL 10 MG IV PUSH ×2 (04:49→21:16)
[2020-06-12 06:34] LABS: Basophils Percent Auto 0.7 % (0.2-1.2); Eosinophils Absolute Auto 0.2 K/mm3 (0-0.3); Eosinophils Percent Auto 2.8 % (0-4.4); Hematocrit 26.8 % (42.0-52.0); Hemoglobin 8.5 g/dL (14.0-18.0); Immature Granulocyte Absolute 0.04 K/mm3 (0.00-0.031); Immature Granulocyte Percent A 0.7 % (0-0.5); Lymphocytes Absolute Auto 0.71 K/mm3 (0.9-3.2); Lymphocytes Percent Auto 12.3 % (18.3-44.2); Mean Corpuscular HGB Conc 31.7 g/dl (32-36); Mean Corpuscular Hemoglobin 33.1 pg (26-34); Mean Corpuscular Volume 104.3 fl (80-100); Mean Platelet Volume 10.6 fl (7.4-10.4); Monocytes Absolute Auto 0.7 K/mm3 (0.1-0.6); Monocytes Percent Auto 11.7 % (2.6-8.5); Neutrophils Absolute Auto 4.2 K/mm3 (1.3-6.7); Neutrophils Percent Auto 71.8 % (45.5-73.1); Platelet Count Result 144 k/mm3 (150-375); Red Blood Count 2.57 M/mm3 (4.6-6.20); White Blood Count 5.8 K/mm3 (4.5-10.0)
[2020-06-12 06:42] LABS: Anion Gap 14 mmol/L (8-16); Blood Urea Nitrogen 36 mg/dL (9-20); Calcium 8.2 mg/dL (8.4-10.2); Carbon Dioxide 26 mmol/L (22-30); Chloride 98 mmol/L (98-107); Estimated CRCL calculation 8 ml/min; Estimated Glomerular Filt Rate 6; Glucose 90 mg/dL (75-110); Magnesium 2.3 mg/dL (1.6-2.3); Phosphorus 6.7 mg/dL (2.5-4.5); Potassium 4.9 mmol/L (3.4-5.0); Sodium 138 mmol/L (137-145)
[2020-06-12] MEDS: HYDROcodone/acetaminophen (*CRX) 10-325 MG TABLET 1 TAB PO ×3 (08:33→21:17)
[2020-06-12] MEDS: SEVELAMER CARBONATE 800 MG TABLET 1600 MG PO ×3 (09:06→17:21)
[2020-06-12] MEDS: VALSARTAN 80 MG TABLET PO (09:06)
[2020-06-12] MEDS: valACYclovir HCL 500 MG TABLET PO (09:06)
[2020-06-12] MEDS: FAMOTIDINE 20 MG TABLET PO (09:06)
[2020-06-12] MEDS: FLUCONAZOLE 100 MG TABLET PO (09:07)
[2020-06-12] MEDS: VITAMIN B CMPLX/VIT C/FOLIC AC 1 CAPSULE 1 CAP PO (09:07)
[2020-06-12 13:07] LABS: Glucose Point of Care 74 (65-105)
--- NOTE | 2020-06-12 15:19 | PM.PNNEP ---
Progress Note: A&P Assessment and Plan (1) End stage renal disease: Code(s): N18.6 - End stage renal disease Status: Chronic Assessment and Plan: HD yesterday had planed HD today to get back on M/W/ dialysis schedule but other emergent dialysis treatments will not make that possible - hence plan HD tomorrow follow electrolytes, volume status, and clearance (2) Hypertensive urgency: Code(s): I16.0 - Hypertensive urgency Status: Acute Assessment and Plan: BP doing better at this time resumed on home medications follow trend of hemodynamics (3) Acute pulmonary edema: Code(s): J81.0 - Acute pulmonary edema Status: Acute Assessment and Plan: resolving with dialytic intervention follow respiratory status wean oxygen as tolerated (4) Anemia: Code(s): D64.9 - Anemia, unspecified Status: Chronic Assessment and Plan: mainly due to ESRD Epogen with HD follow trend of H/H (5) Non-compliance: Code(s): Z91.19 - Patient's noncompliance with other medical treatment and regimen Status: Chronic Assessment and Plan: ongoing issue/problems discussed with case management Will continue to follow. Subjective Date/time seen: 06/12/20 15:19 Transferred out of ICU; respiratory status/breathing appears significantly better; BP fluctuating but doing better as well; no apparent distress voiced at this time; tolerated dialysis yesterday without any issue. Exam Narrative: Exam Narrative: General: WD/WN AA male in NAD Heart: normal S1 and S2; no rub Lungs: clear with decreased breath sounds at bases Abdomen: soft, nontender, nondistended, positive bowel sounds Extremities: no cyanosis or clubbing; increased edema in LUE Skin: warm and dry Objective Data Vital Signs Vital Signs: Laboratory Tests 06/12/20 04:53 06/12/20 04:53 Intake/Output Intake/Output: Intake & Output 06/09/20 06/10/20 06/11/20 06/12/20 23:59 23:59 23:59 23:59 Intake Total 1777 590 Output Total 3200 Balance -0603 590 Meds/Results Medications: Active Medications Generic Name Dose Route Start Last Admin Trade Name Freq PRN Reason Stop Dose Admin Acetaminophen 650 mg 06/11/20 00:26 Tylenol Tablet PO Q4H PRN Mild Pain (1-3) or Fever Hydrocodone Bitart/Acetaminophen 1 tab 06/11/20 03:45 06/12/20 08:33 [place] 10-325 Mg PO 1 tab Q6H PRN Administration Pain Rated 7-10 Amitriptyline HCl 50 mg 06/11/20 21:00 06/11/20 21:00 Elavil PO 50 mg HS JOSE ANGEL Administration Dextrose 12.5 gm 06/11/20 00:25 Dextrose 50% Syringe IV PUSH PRN PRN Hypoglycemia Protocol Diltiazem HCl 300 mg 06/11/20 09:00 06/12/20 09:06 Cardizem Cd PO 300 mg QAM JOSE ANGEL Administration Epoetin Wes-epbx 10,000 units 06/12/20 19:55 Retacrit IV PUSH 06/12/20 19:56 ONCE ONE Famotidine 20 mg 06/11/20 09:00 06/12/20 09:06 Pepcid PO 20 mg DAILY JOSE ANGEL Administration Fluconazole 100 mg 06/11/20 09:00 06/12/20 09:07 Diflucan Tablet PO 100 mg DAILY JOSE ANGEL Administration Glucagon 1 mg 06/11/20 00:25 Glucagon For Inj IM PRN PRN Hypoglycemia Protocol Glucose 15 gm 06/11/20 00:25 Glutose 15 PO PRN PRN Hypoglycemia Protocol Hydralazine HCl 10 mg 06/11/20 13:23 06/12/20 04:49 Apresoline Hcl Inj IV PUSH 10 mg Q4H PRN Administration Blood Pressure - High Dextrose 1,000 mls @ 100 mls/hr 06/11/20 00:25 Dextrose 5% 1,000 Ml IVPB PRN PRN Hypoglycemia Protocol Albumin Human 50 mls @ 999 mls/hr 06/12/20 07:55 Albutein IVPB 07/12/20 07:56 Q10M PRN HYPOTENSION Insulin Aspart 3 - 6 units 06/11/20 08:00 06/12/20 12:22 Novolog SUB-Q Not Given TIDWM JOSE ANGEL Protocol Metoprolol Tartrate 75 mg 06/11/20 21:00 06/11/20 21:02 Lopressor PO 75 mg HS JOSE ANGEL A
--- NOTE | 2020-06-12 16:16 | PM.IMPN ---
Progress Note: A&P Assessment and Plan (1) Hypertensive urgency: Code(s): I16.0 - Hypertensive urgency Status: Acute Assessment and Plan: Patient's uncontrolled hypertension appears to be secondary to non adherence to his medications. The patient's blood pressure still remains severely elevated in the 230s over 100s despite getting his oral medications in the ER tonight and despite multiple IV bolus antihypertensive medications. At this point we will transfer the patient to ICU. We will initiate Cardene IV for a goal of 25% reduction in systolic blood pressure overnight. Resume home oral antihypertensives in the morning. I have consulted our associate director of nursing Dr. Mahmood who agrees with my plan. 06/12/20 16:16 Patient is a 55-year-old male with a history of end-stage renal disease on hemodialysis he has a history of hypertension, history of HIV, he presented emergency department with a complaint blurry vision, shortness of breath numbness and tingling upon arrival to emergency depart patient blood pressure was 265/145 he was started on nicardipine infusion and titrate as he was able to tolerate the goal was to maintain the blood pressure of 165-140 also his home medication will resumed valsartan, diltiazem, metoprolol, terazosin. most likely patient had not taken his home medication and had missed couple of hemodialysis sessions, patient was seen by his Nephrology patient had hemodialysis yesterday and is scheduled to have a Wednesday dialysis today, today is patient is out of ICU is feeling much denies any chest pain shortness of breath palpitation fever or chills, any headache denies any blurry vision numbness or tingling. , (2) Acute pulmonary edema: Code(s): J81.0 - Acute pulmonary edema Status: Acute Assessment and Plan: Appears to be secondary to the patient missing his dialysis session. Nephrology has been consulted by ER provider and the patient will benefit from dialysis tomorrow. Will continue to monitor closely and administer supplemental oxygen if necessary overnight. (3) Non-compliance: Code(s): Z91.19 - Patient's noncompliance with other medical treatment and regimen Status: Chronic Assessment and Plan: I have counseled the patient on the importance of him complying with his medications and dialysis. (4) ESRD on dialysis: Code(s): N18.6 - End stage renal disease; Z99.2 - Dependence on renal dialysis Status: Chronic Assessment and Plan: Nephrology has been consulted by ER provider, continue nephrology recommendations. (5) Anemia of chronic disease: Code(s): D63.8 - Anemia in other chronic diseases classified elsewhere Status: Chronic Assessment and Plan: Likely secondary to end-stage renal disease. No signs of acute blood loss. Monitor H&H, transfuse p.r.n.. (6) HIV (human immunodeficiency virus infection): Qualifiers: HIV symptom status: unspecified Qualified Code(s): B20 - Human immunodeficiency virus [HIV] disease Code(s): B20 - Human immunodeficiency virus [HIV] disease Status: Chronic Assessment and Plan: Continue home HIV medications. Subjective Date/time seen: 06/12/20 16:16 Patient is a 55-year-old male with a history of end-stage renal disease on hemodialysis he has a history of hypertension, history of HIV, he presented emergency department with a complaint blurry vision, shortness of breath numbness and tingling upon arrival to emergency depart patient blood pressure was 265/145 he was started on nicardipine infusion and titrate as he was able to tolerate the goal was to maintain the blood pressure of 165-140 also his home medication will resumed valsartan, diltiazem, metoprolol, terazosin. most likely patient had not taken his home medication and had missed couple of hemodialysis sessions, patient was seen by his Nephrology patient had hemodialysi
[2020-06-12 19:17] LABS: Glucose Point of Care 98 (65-105)
[2020-06-12 19:58] LABS: Glucose Point of Care 126 (65-105)
[2020-06-12] MEDS: TERAZOSIN HCL 5 MG CAPSULE PO (21:10)
[2020-06-12] MEDS: METOPROLOL TARTRATE 25 MG TABLET 75 MG PO (21:10)
[2020-06-12] MEDS: AMITRIPTYLINE HCL 25 MG TABLET 50 MG PO (21:10)
[2020-06-13] VITALS (20 sets, daily range): BP systolic 162–212; BP diastolic 70–113; PULSE 74–90; RESP 12–20; TEMP 35–36.9; O2SAT 97–99
[2020-06-13 05:14] LABS: Hematocrit 26.6 % (42.0-52.0); Hemoglobin 8.6 g/dL (14.0-18.0); Mean Corpuscular HGB Conc 32.3 g/dl (32-36); Mean Corpuscular Hemoglobin 33.7 pg (26-34); Mean Corpuscular Volume 104.3 fl (80-100); Mean Platelet Volume 11.7 fl (7.4-10.4); Platelet Count Result 146 k/mm3 (150-375); Red Blood Count 2.55 M/mm3 (4.6-6.20); Red Cell Distribution Width 15.9 % (11.5-14.5); White Blood Count 5.2 K/mm3 (4.5-10.0)
[2020-06-13 05:34] LABS: Anion Gap 15 mmol/L (8-16); Blood Urea Nitrogen 46 mg/dL (9-20); Calcium 8.1 mg/dL (8.4-10.2); Carbon Dioxide 24 mmol/L (22-30); Chloride 97 mmol/L (98-107); Estimated CRCL calculation 7 ml/min; Estimated Glomerular Filt Rate 5; Glucose 75 mg/dL (75-110); Phosphorus 8.1 mg/dL (2.5-4.5); Potassium 4.9 mmol/L (3.4-5.0); Sodium 136 mmol/L (137-145)
[2020-06-13 07:48] LABS: Glucose Point of Care 136 (65-105)
[2020-06-13] MEDS: FLUCONAZOLE 100 MG TABLET PO (08:25)
[2020-06-13] MEDS: FAMOTIDINE 20 MG TABLET PO (08:25)
[2020-06-13] MEDS: VALSARTAN 80 MG TABLET PO (08:25)
[2020-06-13] MEDS: SEVELAMER CARBONATE 800 MG TABLET 1600 MG PO (08:25)
[2020-06-13] MEDS: valACYclovir HCL 500 MG TABLET PO (08:25)
[2020-06-13] MEDS: VITAMIN B CMPLX/VIT C/FOLIC AC 1 CAPSULE 1 CAP PO (08:25)
--- NOTE | 2020-06-13 09:20 | PC.NURSE ---
Patient to dialysis via bed.
[2020-06-13] MEDS: HYDROcodone/acetaminophen (*CRX) 10-325 MG TABLET 1 TAB PO (10:10)
[2020-06-13] MEDS: EPOETIN ALFA-EPBX 10,000 UNITS/ML VIAL 10000 UNITS IV PUSH (11:10)
--- NOTE | 2020-06-13 11:45 | PM.PNNEP ---
Progress Note: A&P Assessment and Plan (1) End stage renal disease: Code(s): N18.6 - End stage renal disease Status: Chronic Assessment and Plan: HD today and transition back to M/W/F dialysis schedule tomorrow follow electrolytes, volume status, and clearance (2) Hypertensive urgency: Code(s): I16.0 - Hypertensive urgency Status: Acute Assessment and Plan: BP doing better at this time resumed on home medications follow trend of hemodynamics (3) Acute pulmonary edema: Code(s): J81.0 - Acute pulmonary edema Status: Acute Assessment and Plan: resolving with dialytic intervention follow respiratory status off oxygen (4) Anemia: Code(s): D64.9 - Anemia, unspecified Status: Chronic Assessment and Plan: mainly due to ESRD Epogen with HD follow trend of H/H (5) Non-compliance: Code(s): Z91.19 - Patient's noncompliance with other medical treatment and regimen Status: Chronic Assessment and Plan: ongoing issue/problems discussed with case management Will continue to follow - not opposed to discharge from renal perspective; he can receive his next dialysis treatment at his outpatient dialysis center. Subjective Date/time seen: 06/13/20 11:45 Tolerating dialysis treatment at this time; BP and breathing remain relatively stable; having pain in left arm where AVF is and asking for morphine to help with pain; no other acute issues to report. Exam Narrative: Exam Narrative: General: WD/WN AA male in NAD Heart: normal S1 and S2; no rub Lungs: decreased at nases Abdomen: soft, nontender, nondistended, positive bowel sounds Extremities: no cyanosis or clubbing; no edema Skin: warm and dry Objective Data Vital Signs Vital Signs: Vital Signs Temp Pulse Resp BP Pulse Ox 06/13/20 08:00 77 06/13/20 07:51 35.9 C L 81 12 162/77 H 99 06/13/20 04:00 74 06/13/20 00:03 36.1 C L 80 18 163/79 H 97 06/13/20 00:00 78 06/12/20 21:10 87 06/12/20 20:00 36.1 C L 87 16 158/82 H 96 06/12/20 16:00 36.7 C 86 16 161/98 H 98 06/12/20 12:00 36.3 C L 80 16 186/85 H 96 Intake/Output Intake/Output: Intake & Output 06/10/20 06/11/20 06/12/20 06/13/20 23:59 23:59 23:59 23:59 Intake Total 1777 1390 540 Output Total 3200 600 Balance -1423 790 540 Meds/Results Medications: Active Medications Generic Name Dose Route Start Last Admin Trade Name Freq PRN Reason Stop Dose Admin Acetaminophen 650 mg 06/11/20 00:26 Tylenol Tablet PO Q4H PRN Mild Pain (1-3) or Fever Hydrocodone Bitart/Acetaminophen 1 tab 06/11/20 03:45 06/13/20 10:10 [place] 10-325 Mg PO 1 tab Q6H PRN Administration Pain Rated 7-10 Amitriptyline HCl 50 mg 06/11/20 21:00 06/12/20 21:10 Elavil PO 50 mg HS JOSE ANGEL Administration Diltiazem HCl 300 mg 06/11/20 09:00 06/13/20 08:25 Cardizem Cd PO 300 mg QAM JOSE ANGEL Administration Famotidine 20 mg 06/11/20 09:00 06/13/20 08:25 Pepcid PO 20 mg DAILY JOSE ANGEL Administration Fluconazole 100 mg 06/11/20 09:00 06/13/20 08:25 Diflucan Tablet PO 100 mg DAILY JOSE ANGEL Administration Hydralazine HCl 10 mg 06/11/20 13:23 06/12/20 21:16 Apresoline Hcl Inj IV PUSH 10 mg Q4H PRN Administration Blood Pressure - High Albumin Human 50 mls @ 999 mls/hr 06/12/20 07:55 Albutein IVPB 07/12/20 07:56 Q10M PRN HYPOTENSION Metoprolol Tartrate 75 mg 06/11/20 21:00 06/12/20 21:10 Lopressor PO 75 mg HS JOSE ANGEL Administration Non-Formulary Medication 1 tablet 06/11/20 09:00 06/11/20 18:24 Wubruljbk-Pakmcbxn-Rndpmat Ala [Biktarvy] PO 07/11/20 09:01 Not Given DAILY JOSE ANGEL Non-Formulary Medication 100 mg 06/11/20 09:00 06/11/20 18:24 Doravirine [Pifeltro] PO 07/11/20 09:01 Not Given DAILY JOSE ANGEL Sevelamer Carbonate 1,600 mg 06/11/20 08:00 06/13/20 08:25
[2020-06-13] MEDS: MORPHINE SULFATE (*CRX) 2 MG/ML INJ IV PUSH (11:55)
--- NOTE | 2020-06-13 14:00 | PM.DS ---
DS: Admitting Diagnosis Admitting Diagnosis Admitting Diagnosis: CHF, uncontrolled hypertension, noncompliance DS: Discharge Diagnosis Discharge Diagnosis (1) Hypertensive urgency: Code(s): I16.0 - Hypertensive urgency Status: Acute Assessment and Plan: Patient's uncontrolled hypertension appears to be secondary to non adherence to his medications. The patient's blood pressure still remains severely elevated in the 230s over 100s despite getting his oral medications in the ER tonight and despite multiple IV bolus antihypertensive medications. At this point we will transfer the patient to ICU. We will initiate Cardene IV for a goal of 25% reduction in systolic blood pressure overnight. Resume home oral antihypertensives in the morning. I have consulted our counter hop Dr. Mahmood who agrees with my plan. 06/12/20 16:16 Patient is a 55-year-old male with a history of end-stage renal disease on hemodialysis he has a history of hypertension, history of HIV, he presented emergency department with a complaint blurry vision, shortness of breath numbness and tingling upon arrival to emergency depart patient blood pressure was 265/145 he was started on nicardipine infusion and titrate as he was able to tolerate the goal was to maintain the blood pressure of 165-140 also his home medication will resumed valsartan, diltiazem, metoprolol, terazosin. most likely patient had not taken his home medication and had missed couple of hemodialysis sessions, patient was seen by his Nephrology patient had hemodialysis yesterday and is scheduled to have a Wednesday dialysis today, today is patient is out of ICU is feeling much denies any chest pain shortness of breath palpitation fever or chills, any headache denies any blurry vision numbness or tingling. , (2) Acute pulmonary edema: Code(s): J81.0 - Acute pulmonary edema Status: Acute Assessment and Plan: Appears to be secondary to the patient missing his dialysis session. Nephrology has been consulted by ER provider and the patient will benefit from dialysis tomorrow. Will continue to monitor closely and administer supplemental oxygen if necessary overnight. (3) Non-compliance: Code(s): Z91.19 - Patient's noncompliance with other medical treatment and regimen Status: Chronic Assessment and Plan: I have counseled the patient on the importance of him complying with his medications and dialysis. (4) ESRD on dialysis: Code(s): N18.6 - End stage renal disease; Z99.2 - Dependence on renal dialysis Status: Chronic Assessment and Plan: Nephrology has been consulted by ER provider, continue nephrology recommendations. (5) Anemia of chronic disease: Code(s): D63.8 - Anemia in other chronic diseases classified elsewhere Status: Chronic Assessment and Plan: Likely secondary to end-stage renal disease. No signs of acute blood loss. Monitor H&H, transfuse p.r.n.. (6) HIV (human immunodeficiency virus infection): Qualifiers: HIV symptom status: unspecified Qualified Code(s): B20 - Human immunodeficiency virus [HIV] disease Code(s): B20 - Human immunodeficiency virus [HIV] disease Status: Chronic Assessment and Plan: Continue home HIV medications. DS: Summary Hospital Course Reason for hospitalization: Chief complaint: CHF, uncontrolled hypertension, noncompliance Narrative: This is a 54-year-old male with end-stage renal disease on hemodialysis, congestive heart failure, hypertension, diabetes, anemia, chronic disease, HIV, and several other comorbidities who presented to the emergency department earlier this afternoon with complaints of slurred speech, increased weakness, blurry vision, and feeling as if he was drunk for the past 2 days. The patient relates that he did not go to dialysis today. Tonight in the emergency room he is complaining of increased
== END 2020-06-13 18:05 | disposition home or self-care (01) | DRG 304 ==
LOC: ANHED 22:41 → ANHICU 23:44 → ANHIMU 06-13 11:02 → ANHICU 06-17 09:29 → ANHIMU 06-17 09:29
PROVIDERS: Emergency Medicine; Internal Medicine; Internal Medicine Nephrology; Admitting Provider Family Medicine; Emergency Provider Emergency Medicine; PCP Family Medicine; Visit Provider Family Medicine
DX: I16.0 Hypertensive urgency (principal); N18.6 End stage renal disease; J81.0 Acute pulmonary edema; B20 Human immunodeficiency virus [HIV] disease; D69.3 Immune thrombocytopenic purpura; I50.42 Chronic combined systolic (congestive) and diastolic (congestive) heart failure; I27.20 Pulmonary hypertension, unspecified; E11.22 Type 2 diabetes mellitus with diabetic chronic kidney disease; I13.2 Hypertensive heart and chronic kidney disease with heart failure and with stage 5 chronic kidney disease, or end stage renal disease; D63.1 Anemia in chronic kidney disease; Z99.2 Dependence on renal dialysis; Z91.14 Patient's other noncompliance with medication regimen; Z91.15 Patient's noncompliance with renal dialysis; E11.42 Type 2 diabetes mellitus with diabetic polyneuropathy; G25.81 Restless legs syndrome; E78.5 Hyperlipidemia, unspecified; F41.8 Other specified anxiety disorders; I34.0 Nonrheumatic mitral (valve) insufficiency; Z28.21 Immunization not carried out because of patient refusal; Z79.899 Other long term (current) drug therapy; Z85.048 Personal history of other malignant neoplasm of rectum, rectosigmoid junction, and anus; Z86.73 Personal history of transient ischemic attack (TIA), and cerebral infarction without residual deficits; Z86.74 Personal history of sudden cardiac arrest; Z87.891 Personal history of nicotine dependence
CPT/HCPCS: 36415; 70450; 71045; 71046; 80048; 80069; 82948; 83735; 84100; 85025; 85027; 87340; 93005; 99285; A9270; G0257; J0360; J1940; J2270; J7030; Q5106